=== PATIENT | male | born 1965 | race Caucasian/White ===

== ENCOUNTER 2019-01-18 10:26 | Outpatient (CLI) | payer BC ==
[~2019-01-18 10:26] MED LIST: Iopamidol 370 76% 100 ML VIAL ONE
--- NOTE | 2019-01-18 11:37 | CT ---
Exam: Chest CT with contrast Abdomen CT with contrast Pelvic CT with contrast HISTORY: Colon cancer. Evaluate for staging. Correlation: None COMPARISON: None FINDINGS: Chest CT: Mediastinum: No mediastinal mass, lymphadenopathy or hematoma. Aorta: Normal caliber. No periaortic fat stranding. Heart: Normal heart size. No significant pericardial fluid. Trachea and central bronchi: Patent Pleural spaces: No free fluid Right lung: Linear opacity in the right lower lobe likely represent subsegmental atelectasis or scar. Consolidation in the right lower lobe and middle lobe likely represent multi lobar atelectasis. No suspicious masses in the right lung Left lung:Linear opacities in the lingula and left lower lobe likely due to scar or atelectasis. No s uspicious masses in the left lung. Pneumothorax: None Abdomen CT: Gallbladder: Contracted. Grossly unremarkable.Portal vein: Patent Liver: Diffuse heterogeneous enhancement throughout the hepatic parenchyma. The majority of the right hepatic lobe has heterogeneous enhancement suggesting extensive hepatic metastases. The overall degree of involvement suggests significant replacement of the [place] hepatic parenchyma. Spleen: Appropriate enhancement Pancreas: Appropriate enhancement Adrenal glands: Appropriate enhancement Lymphadenopathy: Gastrohepatic lymph node measuring 1.6 x 0.8 cm Kidneys: Symmetric enhancement. No obstructive uropathy. Exophytic hypodensity emanating from the low er pole of the left kidney measuring 1.8 x 1.7 cm compatible with a cyst. Mesentery: There is perihepatic and perisplenic free fluid. Fluid tracks along both paracolic gutters . There are scattered mildly enlarged mesenteric lymph nodes. No free air. Alimentary canal: Gastric mucosa, duodenum and multiple normal caliber small bowel loops are identifi ed. Ileocecal junction is normal. Limited evaluation the appendix. There is contrast and fecal material in a nondistended, nondilated colon. Hyperdensity involving the distal sigmoid colon and rec partha may represent a neoplastic process. Correlate with what is presumed to be a previous colonoscopy. Pelvis CT: There is free fluid in the pelvis. No pelvic mass, adenopathy, free air. Limited evaluation of the ur inary bladder. Osseous structures:Pseudoarthrosis of the left and right sacral ala with the sacrum. There are no ost eoblastic or osteolytic lesions. IMPRESSION: 1. Extensive hepatic metastases. 2. Abnormal mucosal appearance of the distal sigmoid colon and rectum. Correlate with what is presume d to be a recent colonoscopy. 3. Enlarged gastrohepatic and scattered mildly enlarged mesenteric lymph nodes. 4. Free fluid in the abdomen and pelvis.
== END 2019-01-18 10:27 | disposition home or self-care (01) ==
LOC: SCSCT 10:26
PROVIDERS: ATTEND Internal Medicine
DX: K62.89 Other specified diseases of anus and rectum (principal); C78.7 Secondary malignant neoplasm of liver and intrahepatic bile duct; R59.0 Localized enlarged lymph nodes; K76.89 Other specified diseases of liver
CPT/HCPCS: 71260; 74177; Q9967

== ENCOUNTER 2019-01-20 14:49 | Inpatient (IN) | payer BC ==
[2019-01-20 15:32] LABS: Bilirubin Large (Negative); Blood, Urine Negative (Negative); Glucose, Urine (Dipstick) Negative (Negative); Leukocyte Negative (Negative); Nitrite Negative (Negative); Protein, Urine (Dipstick) 30 mg/dL (Neg-Trace)
[2019-01-20 15:35] LABS: Clarity Hazy (Clear)
[2019-01-20 15:37] LABS: RBC/HPF None Seen HPF (0-3); Squamous Epithelial 0-3 HPF (0-3); WBC/HPF None Seen HPF (0-3)
[2019-01-20 15:38] LABS: Bacteria/HPF 1+ HPF (None Seen)
[2019-01-20 15:53] LABS: Hemoglobin 11.9 g/dL (14.0-18.0); Mean Corpuscular HGB CONC 33.9 g/dL (32.0-36.0); Mean Corpuscular Hemoglobin 30.3 pg (27.0-31.0); Mean Corpuscular Volume 89.4 fL (78.0-98.0); Mean Platelet Volume 13.5 fL (7.4-10.4); Platelet Count 216 thou/uL (130-400); RBC Distribution Width 14.1 % (11.5-14.5); Red Blood Cell (RBC) Count 3.91 mill/uL (4.70-6.10); White Blood Cell (WBC) Count 17.3 thou/uL (4.8-10.8)
[2019-01-20 16:04] LABS: #Basophils 0.1 thou/uL (0.0-0.2); #Eosinphils 0.1 thou/uL (0.0-0.7); #Lymphocytes 1.5 thou/uL (1.20-3.40); #Monocytes 1.2 thou/uL (0.11-0.59); #Neutrophils 14.4 thou/uL (1.40-6.50); %Basophils 0.7 % (0.0-1.0); %Eosinophils 0.6 % (0.0-10.0); %Lymphocytes 8.4 % (21.0-51.0); %Neutrophils 83.3 % (42.0-75.0); ALT (SGPT) 168 U/L (8-55); AST (SGOT) 341 U/L (5-34); Albumin 3.7 g/dL (3.5-5.0); Alkaline Phosphatase 531 U/L (40-150); Anion Gap 22 mmol/L (10-20); BUN (Urea Nitrogen) 38 mg/dL (8.4-25.7); Bilirubin, Total 10.8 mg/dL (0.2-1.2); Calc. Creatinine Clearance 0 mL/min (70-130); Calcium 8.7 mg/dL (7.8-10.44); Carbon Dioxide 19 mmol/L (22-29); Chloride 78 mmol/L (98-107); Estimated GFR-MDRD 21; Globulin 2.7 g/dL (2.4-3.5); Glucose 93 mg/dL (70-105); Hypochromia SLIGHT = 6-15 cells (100X) (0-5/hpf); Large Platelets SLIGHT; Lipase 45 U/L (8-78); MDiff Complete? YES; Ovalocytes SLIGHT = 2-5 cells (100X) (0-1/hpf); Platelet Morphology Comment Appears Adequate; Potassium 4.9 mmol/L (3.5-5.1); Protein, Total 6.4 g/dL (6.0-8.3); Stomatocytes SLIGHT = 2-5 cells (100X) (0-1/hpf)
[2019-01-20 16:08] LABS: Sodium 114 mmol/L (136-145)
[2019-01-20] MEDS ORDERED: Ondansetron PF 4 MG/2 ML Vial ONE (17:37)
[2019-01-20] MEDS: Sodium Chloride 0.9% 1,000 ML IV SCH (19:30)
[2019-01-20 19:43] VITALS: BMI 35.3
[2019-01-20] MEDS ORDERED: Ondansetron PF 4 MG/2 ML Vial IVP PRN (20:33)
[2019-01-20] MEDS ORDERED: Ondansetron ODT 4 MG TAB PO PRN (20:33)
[2019-01-20] MEDS: traZODone HCl 50 MG TAB PO SCH (21:00)
[2019-01-20 21:17] LABS: Anion Gap 20 mmol/L (10-20); BUN (Urea Nitrogen) 40 mg/dL (8.4-25.7); Calc. Creatinine Clearance 46 mL/min (70-130); Calcium 8.3 mg/dL (7.8-10.44); Carbon Dioxide 20 mmol/L (22-29); Chloride 75 mmol/L (98-107); Estimated GFR-MDRD 20; Glucose 95 mg/dL (70-105); Potassium 5.1 mmol/L (3.5-5.1)
[2019-01-20 21:20] LABS: Sodium 110 mmol/L (136-145)
--- NOTE | 2019-01-20 21:31 | PDOC.EVN ---
Event Note - Event Note Event Note: Sodium level followed, will give Nacl 3 % bolus, as discussed with Dr Funes, will monitor.
--- NOTE | 2019-01-20 21:52 | HP ---
PRIMARY CARE DOCTOR: Dr. Sanabria - oncologist; Dr. Schumacher - GI doctor. CODE STATUS: Full code. TIME OF EVALUATION: 8:30 HISTORY OF PRESENT ILLNESS: This is a 53-year-old male patient, recent diagnosis of stage IV colon cancer, recent colonoscopy. Went to see Dr. Sanabria today, had some labs done, and the patient was found to have severe hyponatremia at sodium of 114. The plan from Dr. Sanabria is to start the patient on home chemotherapy as soon as possible and to refer him to [facility] since this is a very atypical kind of cancer. From the medical standpoint, the patient has no significant symptoms. There is no nausea, no vomiting, no seizures. We will correct the sodium slowly with goal to correct from 6 to 9 mEq in the next 24 hours. The patient's symptoms are mild and he is stable. REVIEW OF SYSTEMS: All other systems were reviewed and negative except for the findings as mentioned above. PAST MEDICAL HISTORY: The patient has a history of hypertension and colon cancer. PAST SURGICAL HISTORY: No surgical history. PSYCH HISTORY: Denies. SOCIAL HISTORY: No drug use. No smoking history. FAMILY HISTORY: The mother had a history of lung cancer. ALLERGIES: NO KNOWN DRUG ALLERGIES. REPORTED MEDICATIONS: 1. Amlodipine. 2. Benazepril. 3. Tramadol. 4. Metoprolol. PHYSICAL EXAMINATION: VITAL SIGNS: On presentation, blood pressure 128/65 with heart rate 85, respiratory rate was 18, temperature 97.6, oxygen saturation 94% on room air. GENERAL APPEARANCE: The patient is obese. He is alert, oriented, not in acute distress. HEENT: Eyes, normal conjunctivae. Moist oral mucosa. Anicteric. No JVD. RESPIRATORY: Bilateral air entry. No rales. No wheezes. Symmetric expansion. CARDIOVASCULAR: Normal rate and regular rhythm. No murmurs. No edema. ABDOMEN: Soft. Normal bowel sounds. MUSCULOSKELETAL: Baseline range of motion and strength. SKIN: Warm and intact. No pallor. No rash. No redness. Capillary refill seems to intact. NEURO: No evidence of any new focal weakness. Cranial nerves seem to be intact. PSYCHIATRIC: The patient is in good mood. No anxiety. Optimal judgment. DIAGNOSTIC DATA: Abdomen and pelvis CT was done. The patient has extensive hepatic metastasis, abnormal mucosal appearance to the distal sigmoid colon and rectum, correlate with what recent colonoscopy, enlarged gastrohepatic and scattered mild large mesenteric lymph nodes, free fluid in the abdomen and pelvis. LABORATORY DATA: Reviewed. The patient has white count of 17.3, hemoglobin 11.9, MCV 89.4, platelet count 216, neutrophils 33.3. Chemistry; sodium 114, potassium 4.9, chloride 78, carbon dioxide 19, anion gap 22, BUN 38, creatinine 3.14, GFR 21, glucose 93, calcium 9.7, total bilirubin 10.8, AST 341, ALT 168, alkaline phosphatase 531. Serum total protein 6.4, albumin 3.7. Urine was done, the patient has large bilirubin. No white count in urine. ASSESSMENT AND PLAN: The patient will be placed in the hospital with following medical problems: 1. Severe hyponatremia with sodium 114. We will replace his sodium at a slow rate. The patient is asymptomatic, so this is chronic. We will aim for correction of 6 to 9 mEq in the first 24 hours. 2. Leukocytosis -The patient seems to be also third spacing. The patient has bilateral leg edema. No evidence of infection at this point. We will monitor. If any evidence of sepsis appears, we will treat accordingly. 3. Normocytic anemia, could be secondary to anemia of chronic disease or underlying chronic kidney disease. I do not have many labs to compare,kidney function if this acute or chronic. 4. Possible acute kidney injury with a creatinine of 3.14. We will monitor kidney function. We are going to consult Nephrology given severe hyponatremia and also acute kidney failure. We will avoid nephrotoxic medications. We will hydrate and monitor kidney function. 5. Metastatic liver disease due to colon cancer with elevated LFTs, being followed by Dr. Sanabria. Will need to follow with Hematology/Oncology. 6. Deep venous thrombosis prophylaxis. 7. Controlled hypertension. Reconcile home medications. Job ID: [id number] [facility]
[2019-01-20] MEDS ORDERED: Sodium Chloride 3% 100 ML IVPB SCH (22:00)
[2019-01-21 01:31] LABS: Anion Gap 16 mmol/L (10-20); BUN (Urea Nitrogen) 42 mg/dL (8.4-25.7); Calc. Creatinine Clearance 45 mL/min (70-130); Calcium 8.3 mg/dL (7.8-10.44); Carbon Dioxide 20 mmol/L (22-29); Chloride 79 mmol/L (98-107); Estimated GFR-MDRD 19; Glucose 89 mg/dL (70-105); Potassium 5.2 mmol/L (3.5-5.1)
[2019-01-21 01:34] LABS: Sodium 110 mmol/L (136-145)
[2019-01-21] MEDS: traMADol HCl 50 MG TAB PO PRN (03:39)
[2019-01-21] MEDS: Sodium Chloride 0.9% 1,000 ML IV SCH (03:41)
[2019-01-21 07:44] LABS: Anion Gap 22 mmol/L (10-20); BUN (Urea Nitrogen) 44 mg/dL (8.4-25.7); Calc. Creatinine Clearance 40 mL/min (70-130); Calcium 8.3 mg/dL (7.8-10.44); Carbon Dioxide 18 mmol/L (22-29); Chloride 76 mmol/L (98-107); Estimated GFR-MDRD 17; Glucose 83 mg/dL (70-105); Potassium 4.9 mmol/L (3.5-5.1)
[2019-01-21 07:46] LABS: Sodium 111 mmol/L (136-145)
[2019-01-21] MEDS ORDERED: Sodium Chloride 3% 200 ML IVPB SCH (08:00)
[2019-01-21] MEDS ORDERED: Albumin 25% 25 GM/100 ML BOT IVPB SCH (08:22)
[2019-01-21 08:57] LABS: #Eosinphils 0.3 thou/uL (0.0-0.7); #Lymphocytes 1.3 thou/uL (1.20-3.40); #Monocytes 1.1 thou/uL (0.11-0.59); #Neutrophils 12.1 thou/uL (1.40-6.50); %Basophils 0.2 % (0.0-1.0); %Monocytes 7.6 % (0.0-10.0); %Neutrophils 81.1 % (42.0-75.0); Hemoglobin 11.3 g/dL (14.0-18.0); Mean Corpuscular HGB CONC 32.5 g/dL (32.0-36.0); Mean Corpuscular Hemoglobin 29.2 pg (27.0-31.0); Mean Corpuscular Volume 89.8 fL (78.0-98.0); Mean Platelet Volume 11.3 fL (7.4-10.4); Platelet Count 209 thou/uL (130-400); RBC Distribution Width 14.5 % (11.5-14.5); Red Blood Cell (RBC) Count 3.88 mill/uL (4.70-6.10); White Blood Cell (WBC) Count 14.9 thou/uL (4.8-10.8)
[2019-01-21] MEDS ORDERED: Amlodipine 5 MG TAB PO SCH (09:00)
[2019-01-21] MEDS ORDERED: Non-Formulary Item 1 EACH (Amlodipine Besylate/Benazepril [Amlodipine Besylate/Benazepril PO SCH (09:00)
--- NOTE | 2019-01-21 09:04 | CON ---
DATE OF CONSULTATION: 01/21/2019 REASON FOR CONSULTATION: Severe hyponatremia and renal insufficiency. REQUESTING PHYSICIAN: Lalito Negron MD HISTORY OF PRESENT ILLNESS: A 53-year-old male patient recently diagnosed with metastatic colon cancer admitted for evaluation and treatment of hyponatremia noticed by the oncologist in the office. The patient reportedly had a blood draw yesterday morning and was called back later in the day to report to the ER for evaluation and treatment of low sodium levels. On presentation to the ER, the patient was found to have a sodium of 114, which was the same earlier on in the day. The patient also was found to have elevated creatinine, hence possible volume contraction was considered and he was started on normal saline. However, repeat BMP 5 hours after commencement of normal saline showed sodium of 110, hence Nephrology consult was requested. The patient reported poor oral intake for several days, but denied vomiting or diarrhea. He also denied NSAID use. The patient however had contrast study on January 18 for staging of cancer. He also recently had a colonoscopy on January 12. He has no prior history of kidney disease. The patient was treated with 100 mL of hypertonic saline last night, but repeat BMP this morning showed sodium of 111. He admitted to generalized weakness, but denied dysuria, hematuria, difficulty urinating, hematemesis, headache, or focal weakness. He however admitted to recent bilateral leg swelling as well as right-sided flank through back pain. The patient also takes benazepril for hypertension. There is no history of fever, shortness of breath, sputum production, palpitation, PND, or orthopnea. He, however, admitted to intermittent cough with minimal to no sputum production. The patient is a never smoker. PAST MEDICAL HISTORY: 1. Hypertension. 2. Recent diagnosis of colon cancer. PAST SURGICAL HISTORY: None. FAMILY HISTORY: Significant for kidney disease and lung cancer in mother. SOCIAL HISTORY: The patient lives with family. Denied smoking or drug use. The patient wants to be full code and spouse is the surrogate decision maker. ALLERGIES: NO KNOWN DRUG ALLERGIES REPORTED. HOME MEDICATIONS: 1. Amlodipine 5 mg p.o. daily. 2. Amlodipine/benazepril 5/40 mg 1 tablet daily. 3. Tramadol 50 mg q.6 p.r.n. for pain. 4. Metoprolol succinate 25 mg p.o. daily. REVIEW OF SYSTEMS: A 12-point review of system performed was negative other than pertinent positives and negatives included in the history of present illness. PHYSICAL EXAMINATION: VITAL SIGNS: Current vitals show temperature 97.6, pulse 78, respiratory rate 18, SpO2 91 on room air, blood pressure is 107/53. GENERAL: Healthy-looking, middle-aged male, in mild painful distress. Afebrile. Anicteric. Acyanotic. HEENT: Normocephalic, atraumatic. Pupils are reacting to light. Oral mucosa is moist. NECK: Supple and nontender with full range of motion. No obvious masses were appreciated. CARDIOVASCULAR: Regular rhythm and rate with normal heart sounds 1 and 2. RESPIRATORY: Fair air entry with some transmitted sounds and a few crackles on the right lung base. Work of breathing is not increased. No rhonchi were appreciated. GI: Full, soft, mild tenderness right upper quadrant. Bowel sound is normoactive. EXTREMITIES: Moderate bilateral leg edema noted. No erythema or cyanosis appreciated. ACQUISITIONS LOGISTICS ANALYST: Conscious, alert and oriented x3 with appropriate mental status. Cranial nerves 2 through 12 are grossly intact. The patient moves all extremities. DIAGNOSTIC DATA: On presentation, January 20, the patient had the following labs; CBC showed WBC count of 17.3, hemoglobin of 11.9, MCV of 89.4, and platelet count of 216. Initial BMP on January 20 showed sodium 114, potassium 5.0, chloride 76, CO2 21, BUN 36, creatinine 2.75, glucose 80, calcium 8.7, total bilirubin 11.1, direct 7.8, AST 310, ALT 153, alkaline phosphatase 560, total protein 5.9, albumin 3.8, globulin 2.1. Most current BMP at 7:01 a.m. on January 21 showed sodium 111, potassium 4.9, chloride 76, CO2 of 18, BUN 44, creatinine 3.78, glucose 83, calcium 8.3. Serum osmolarity on January 20 was 248. Uric acid on January 20 was 16.7 and phosphorus on 01/[address] scan of the chest, abdomen and pelvis performed on January 18 showed extensive hepatic metastasis as well as abnormal mucosal appearance of the distal sigmoid colon and rectum as well as enlarged gastrohepatic and scattered mildly enlarged mesenteric lymph nodes. Also noted were bilateral linear opacities in both lungs. ASSESSMENT: 1. Severe hyponatremia: This is felt to be due to syndrome of inappropriate antidiuretic hormone secretion related to neoplastic disease. 2. Renal insufficiency: Acuity is unclear at this time. But recent contrast study in a patient using benazepril is suggestive of contrast induced nephropathy. However, other etiologies like renal venothrombosis given bilateral leg edema and metastatic disease is considered. The patient also has elevated uric acid with cancer raising possibility of tumor lysis syndrome. 3. Metastatic colon cancer. 4. Metabolic acidosis: Due to chronic kidney disease. 5. Bilateral leg edema: Concerning for deep venous thrombosis. 6. 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 7. Abnormal liver enzymes. 8. Hyperbilirubinemia. PLAN: 1. We will give 200 mL of hypertonic saline and recheck BMP afterwards with a view to dosing further if needed to get serum sodium at least back to 114. We will commence fluid restriction to 800 mL/h. 2. We will get medical record from the PCP to know the patient's baseline creatinine. 3. We will also get renal ultrasound as well as bilateral lower extremity Dopplers to rule out DVT. 4. We will get urine osmolality as well as urine electrolytes to see if there is a possible contribution from prerenal etiology. 5. We will also get serum phosphorus, magnesium as well as repeat uric acid. 6. In the face of possible tumor lysis syndrome, management of this patient will be very, very challenging, especially with severe hyponatremia. Many thanks for involving us in the care of this patient. We will follow closely with you. Further recommendation to follow following review of other diagnostic tests and hospital course. Job ID: [id number]
--- NOTE | 2019-01-21 09:08 | ULT ---
ULTRASOUND WITH DOPPLER DUPLEX VENOUS LOWER EXTREMITY BILATERAL: CPT: 69829 ICD-10-PCS: B54D HISTORY: Lower extremity edema. TECHNIQUE: Color flow Doppler, spectral waveform analysis of pulsed Doppler, and cha-scale imaging with jordy belkys and augmentation, were used to evaluate the bilateral common femoral, femoral, popliteal, methods engineer ior tibial, and superficial femoral, veins; and the proximal portions of the profunda femoral and gre ater saphenous, veins. FINDINGS: There is appropriate compressibility and flow within the imaged deep vein system of each lower extrem ity. IMPRESSION: No deep vein thrombosis. POS: C
--- NOTE | 2019-01-21 09:18 | ULT ---
RENAL ULTRASOUND: CLINICAL HISTORY: Acute kidney insufficiency. FINDINGS: The demonstrates left renal length is 11.9 cm and right renal length is 12 cm. No overt hydronephros is. There is a focal hypoechoic, 2 cm circumscribed focus of the left kidney, inferiorly, consistent with a cyst. The imaged urinary bladder is grossly unremarkable. IMPRESSION: 1. Left renal cyst. 2. No overt hydronephrosis. POS: C
[2019-01-21] MEDS: Lidocaine 5% Patch TD SCH (09:19)
[2019-01-21 09:27] LABS: Magnesium 2.6 mg/dL (1.6-2.6); Uric Acid 19.3 mg/dL (3.5-7.2)
[2019-01-21 09:28] LABS: ALT (SGPT) 160 U/L (8-55); AST (SGOT) 344 U/L (5-34); Albumin 3.6 g/dL (3.5-5.0); Alkaline Phosphatase 489 U/L (40-150); Bilirubin, Direct 7.8 mg/dL (0.1-0.3); Bilirubin, Total 10.9 mg/dL (0.2-1.2); CK (CPK) 444 U/L (30-200); Protein, Total 5.9 g/dL (6.0-8.3)
[2019-01-21 09:36] LABS: Phosphorus 5.5 mg/dL (2.3-4.7)
[2019-01-21 10:37] LABS: Creatinine, Urine 220.63 mg/dL (63-166); Potassium, Urine 26.8 mmol/L; Sodium, Urine Less than 20 mmol/L (Not Available)
[2019-01-21] MEDS ORDERED: RASBURICASE FS SCH (12:30)
[2019-01-21] MEDS ORDERED: RASBURICASE 1.5 MG FS SCH ×2 (12:45)
[2019-01-21 12:59] LABS: Anion Gap 21 mmol/L (10-20); BUN (Urea Nitrogen) 45 mg/dL (8.4-25.7); Calc. Creatinine Clearance 35 mL/min (70-130); Calcium 8.5 mg/dL (7.8-10.44); Carbon Dioxide 20 mmol/L (22-29); Chloride 77 mmol/L (98-107); Estimated GFR-MDRD 15; Glucose 92 mg/dL (70-105); Potassium 5.4 mmol/L (3.5-5.1)
[2019-01-21 13:07] LABS: Sodium 113 mmol/L (136-145)
[2019-01-21] MEDS ORDERED: Sodium Chloride 3% 500 ML IVPB SCH (13:30)
[2019-01-21] MEDS ORDERED: Sodium Bicarbonate 75 MEQ in Sodium Chloride 0.45% 1,000 ML IV SCH ×2 (13:45→14:00)
--- NOTE | 2019-01-21 14:15 | PDOC.HOSPP ---
- Subjective Encounter Date: 01/21/19 Encounter Time: 14:13 Subjective: Patient seen and examined, no new issues or complaints. Daughter at bedside, all questions answered. - Objective Vital Signs & Weight: Vital Signs (12 hours) Temp Pulse Resp BP Pulse Ox 01/21/19 08:00 90 L 01/21/19 07:54 97.6 F 78 18 107/53 L 91 L 01/21/19 03:56 97.9 F 78 16 114/55 L 93 L Weight Weight 268 lb Result Diagrams: 01/21/19 08:29 01/21/19 12:18 ROS - Medication Medications: Active Medications Generic Name Dose Route Start Last Admin Trade Name Freq PRN Reason Stop Dose Admin Rasburicase 4.5 mg/ Sodium 50 mls @ 100 mls/hr 01/21/19 13:00 01/21/19 13:53 Chloride IVPB 01/21/19 17:00 50 mls ONE DAYLIN Administration Lidocaine 1 patch 01/21/19 09:00 01/21/19 09:19 Lidoderm 5% Patch TD 1 patch DAILY DAYLIN Administration Metoprolol Succinate 25 mg 01/21/19 09:00 01/21/19 09:18 Toprol Xl PO 25 mg DAILY DAYLIN Administration Sodium Chloride 10 ml 01/21/19 09:00 01/21/19 09:11 Flush - Normal Saline IVF 10 ml Q12HR DAYLIN Administration Sodium Chloride 10 ml 01/20/19 21:33 01/21/19 09:16 Flush - Normal Saline IVF 10 ml PRN PRN Administration Saline Flush Tramadol HCl 50 mg 01/20/19 20:36 01/21/19 03:39 Ultram PO 50 mg Q6HR PRN Administration Pain Trazodone HCl 50 mg 01/20/19 21:00 01/20/19 21:00 Desyrel PO 50 mg HS DAYLIN Administration - Exam NAD, awake alert Eye: PERRL, anicteric sclera ENT: normocephalic atraumatic, no oropharyngeal lesions Neck: supple Heart: RRR, no murmur, no gallops Respiratory: CTAB, no wheezes, no rales Gastrointestinal: soft, non-tender, non-distended Hosp A/P (1) Colon cancer Code(s): C18.9 - MALIGNANT NEOPLASM OF COLON, UNSPECIFIED Status: Acute (2) Hyponatremia Code(s): E87.1 - HYPO-OSMOLALITY AND HYPONATREMIA Status: Acute (3) Obesity Code(s): E66.9 - OBESITY, UNSPECIFIED Status: Acute (4) Leukocytosis Code(s): D72.829 - ELEVATED WHITE BLOOD CELL COUNT, UNSPECIFIED Status: Acute - Plan - cont with current medical management - Na levels rising slowly - given the fact that pt was at 110 with no symptoms this is something that chronically happened - will target a rise of 6-8 meq/24hrs for now - renal also following, appreciate help - patient stable currently - serial BMPs - case and plan d/w patient at [facility], family at bedside, all questions answered.
--- NOTE | 2019-01-21 15:26 | CON ---
DATE OF CONSULTATION: REASON FOR CONSULTATION: Small cell carcinoma of the rectum. 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 The patient initially presented to [facility] ER on December 31 for abdominal pain and CT showed multiple liver lesions. He was discharged with outpatient followup, but a few days later, went to the [facility] ER for the same issue. He eventually saw Dr. 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 CT chest, abdomen, and pelvis on January 18 showed extensive hepatic metastases, extrahepatic and mesenteric lymphadenopathy and a normal mucosal appearance of distal sigmoid colon and rectum. The patient was feeling normal until beginning of December when the pain abruptly started. He also has shortness of breath and constipation beginning around the same time along with fatigue. He is noticed to be jaundiced in clinic yesterday. However, he had not noticed this before. He also noted leg edema, but this is more chronic and denied any other symptoms. The patient left the clinic and his labs came back showing a sodium of 114, creatinine 2.75, uric acid 16.7, total bilirubin 11.1, and LDH of 619. I called the patient and advised him to go to the hospital for evaluation due to metabolic disturbances. On arrival to the hospital, his sodium dropped to 110 and his creatinine has trended up to 3.78. REVIEW OF SYSTEMS: Ten-point review of systems negative except as per HPI. PAST MEDICAL HISTORY: Hypertension, rectal cancer. PAST SURGICAL HISTORY: None. SOCIAL HISTORY: No smoking or drug use. 1 to 2 beers daily. FAMILY HISTORY: Lung cancer in his mother. ALLERGIES: NO KNOWN DRUG ALLERGIES. CURRENT MEDICATIONS: Reviewed. PHYSICAL EXAMINATION: VITAL SIGNS: Temperature 97.6, pulse 78, respirations 18, saturating 91% on room air, blood pressure 107/53. GENERAL APPEARANCE: The patient is lying or sitting up in bed, in no acute distress. HEENT: Normocephalic and atraumatic. Scleral icterus is noted. NECK: Supple. LUNGS: Clear to auscultation bilaterally. CARDIOVASCULAR: S1, S2. Regular rhythm and rate. ABDOMEN: Obese with mild right upper quadrant tenderness. EXTREMITIES: 1 to 2+ edema bilaterally. SKIN: Jaundiced. LYMPHATICS: No palpable lymphadenopathy. NEUROLOGIC: Cranial nerves 2 through 12 are grossly intact and otherwise nonfocal. PSYCHIATRIC: Awake, alert, and oriented x3. LABORATORY DATA: Sodium 111, potassium 4.9, chloride 76, bicarb 18, BUN 44, creatinine 3.78. Serum osmolality 248, total bilirubin 10.8, AST 341, ALT 168, alkaline phosphatase 531, uric acid 16.7, CEA 0.97, LDH 619. 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 Dr. Funes has been consulted for his metabolic disturbances and has given him a dose of hypertonic saline which he will repeat today. Trying to hydrate and hold off on any ADH inhibitors at this time while we treat his tumor lysis syndrome. Repeating uric acid level now and if still elevated, we will give him a dose of rasburicase. The patient's bilirubin is extremely elevated, most likely just due to tumor burden as there is no ductal dilatation seen on the CT. However, Dr. Santiago will see the patient today to see if stenting would have any benefit. The patient has a very aggressive tumor and needs to be started on chemotherapy quickly and Dr. Pena has been consulted for inpatient MediPort placement, and I will plan to start him on carboplatin plus PEG DRIVER-16 tomorrow. The patient will need an MRI brain within the next few days to evaluate for metastatic disease; however, this is not urgent at this time. Job ID: [id number]
--- NOTE | 2019-01-21 16:08 | ULT ---
RIGHT UPPER QUADRANT ULTRASOUND: 01/21/19 INDICATION: Biliary dilatation. FINDINGS: There is diffuse heterogeneity of the liver with multiple hypoechoic lesions indicative of metastases . There is a moderately distended echogenic gallbladder indicative of gravel-like cholelithiasis/gal lbladder sludge. The gallbladder wall is thickened. Imaged common duct is normal in caliber measuring 2 to 3 mm. IMPRESSION: 1. Diffuse hepatic metastatic disease. 2. Abnormal sonographic appearance of the gallbladder, as discussed above. 3. No abnormal dilatation of the common duct is demonstrated. POS: [facility]
[2019-01-21 17:13] LABS: Anion Gap 22 mmol/L (10-20); BUN (Urea Nitrogen) 48 mg/dL (8.4-25.7); Calc. Creatinine Clearance 34 mL/min (70-130); Calcium 8.2 mg/dL (7.8-10.44); Carbon Dioxide 18 mmol/L (22-29); Chloride 77 mmol/L (98-107); Estimated GFR-MDRD 14; Glucose 82 mg/dL (70-105); Potassium 5.1 mmol/L (3.5-5.1)
[2019-01-21 17:21] LABS: Sodium 112 mmol/L (136-145)
[2019-01-21] MEDS: Sodium Bicarbonate 75 MEQ in Sodium Chloride 0.45% 1,000 ML IV SCH (20:21)
[2019-01-21] MEDS: traZODone HCl 50 MG TAB PO SCH (20:22)
[2019-01-21] MEDS: Sodium Chloride 3% 500 ML IVPB SCH (20:22)
[2019-01-21] MEDS: Lidocaine Patch Removal 1 EACH TOP SCH (20:24)
[2019-01-21 21:17] LABS: Anion Gap 22 mmol/L (10-20); BUN (Urea Nitrogen) 49 mg/dL (8.4-25.7); Calc. Creatinine Clearance 33 mL/min (70-130); Calcium 8.3 mg/dL (7.8-10.44); Carbon Dioxide 19 mmol/L (22-29); Chloride 77 mmol/L (98-107); Estimated GFR-MDRD 14; Glucose 80 mg/dL (70-105); Potassium 4.8 mmol/L (3.5-5.1)
[2019-01-21 21:23] LABS: Sodium 113 mmol/L (136-145)
[2019-01-22 01:11] LABS: Anion Gap 22 mmol/L (10-20); BUN (Urea Nitrogen) 52 mg/dL (8.4-25.7); Calc. Creatinine Clearance 33 mL/min (70-130); Carbon Dioxide 18 mmol/L (22-29); Chloride 80 mmol/L (98-107); Estimated GFR-MDRD 13; Glucose 79 mg/dL (70-105); Potassium 4.9 mmol/L (3.5-5.1)
[2019-01-22 01:13] LABS: Sodium 115 mmol/L (136-145)
[2019-01-22] MEDS: Sodium Bicarbonate 75 MEQ in Sodium Chloride 0.45% 1,000 ML IV SCH ×5 (01:55→20:03)
[2019-01-22 05:07] LABS: #Basophils 0.1 thou/uL (0.0-0.2); #Eosinphils 0.2 thou/uL (0.0-0.7); #Lymphocytes 1.3 thou/uL (1.20-3.40); #Neutrophils 10.5 thou/uL (1.40-6.50); %Basophils 0.5 % (0.0-1.0); %Eosinophils 1.7 % (0.0-10.0); %Lymphocytes 9.9 % (21.0-51.0); %Monocytes 7.6 % (0.0-10.0); %Neutrophils 80.4 % (42.0-75.0); Hemoglobin 10.5 g/dL (14.0-18.0); Mean Corpuscular HGB CONC 33.4 g/dL (32.0-36.0); Mean Corpuscular Hemoglobin 30.6 pg (27.0-31.0); Mean Corpuscular Volume 91.6 fL (78.0-98.0); Mean Platelet Volume 11.1 fL (7.4-10.4); Platelet Count 194 thou/uL (130-400); RBC Distribution Width 14.5 % (11.5-14.5); Red Blood Cell (RBC) Count 3.42 mill/uL (4.70-6.10); White Blood Cell (WBC) Count 13.1 thou/uL (4.8-10.8)
[2019-01-22 05:28] LABS: Phosphorus 5.9 mg/dL (2.3-4.7)
[2019-01-22 05:31] LABS: ALT (SGPT) 154 U/L (8-55); AST (SGOT) 355 U/L (5-34); Albumin 3.5 g/dL (3.5-5.0); Alkaline Phosphatase 443 U/L (40-150); Anion Gap 22 mmol/L (10-20); BUN (Urea Nitrogen) 53 mg/dL (8.4-25.7); Bilirubin, Total 10.4 mg/dL (0.2-1.2); Calc. Creatinine Clearance 29 mL/min (70-130); Calcium 7.9 mg/dL (7.8-10.44); Carbon Dioxide 19 mmol/L (22-29); Chloride 79 mmol/L (98-107); Estimated GFR-MDRD 12; Globulin 2.1 g/dL (2.4-3.5); Glucose 77 mg/dL (70-105); Potassium 4.9 mmol/L (3.5-5.1); Protein, Total 5.6 g/dL (6.0-8.3); Uric Acid 15.2 mg/dL (3.5-7.2)
[2019-01-22 05:38] LABS: Sodium 115 mmol/L (136-145)
[2019-01-22] MEDS: Sodium Chloride 3% 500 ML IVPB SCH ×5 (06:44→23:36)
--- NOTE | 2019-01-22 08:16 | PRG ---
DATE OF SERVICE: 01/22/2019 SERVICE: Nephrology. SUBJECTIVE: A 53-year-old with recent diagnosis of colon cancer with metastasis. The patient was also found to have acute renal failure necessitating Nephrology consult. Was found to have hyponatremia as well as features of tumor lysis syndrome. Reports feeling a little better. Appetite has improved. Denied nausea, vomiting, chest pain, or shortness of breath. OBJECTIVE: VITAL SIGNS: Temperature 97.8, pulse 80, respiratory rate 16, SpO2 of 90 on room air, and blood pressure 121/83. GENERAL: Middle-aged male, in no obvious distress. Afebrile, acyanotic. HEENT: Normocephalic, atraumatic. Oral mucosa is moist. CARDIOVASCULAR: Regular rhythm and rate with normal heart sounds 1 and 2. RESPIRATORY: Fair air entry bilateral with few bibasilar crackles. No use of accessory muscles appreciated. GI: Full, soft, nontender, nondistended with normal bowel sounds. EXTREMITIES: [id number] bilateral leg edema. No erythema appreciated. 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 Cranial nerves 2 through 12 are grossly intact. DIAGNOSTIC DATA: CBC showed WBC count of 13.1, hemoglobin of 10.5, MCV of 91.6, platelet of 194. CMP this morning showed sodium 115, potassium 4.9, chloride 79, CO2 of 19, anion gap 22, BUN 53, creatinine 5.13, glucose 77, calcium 7.9, total bilirubin 10.4, AST 355, ALT 154, alkaline phosphatase 443, total protein 5.6, albumin 3.5, globulin 2.1. Phosphorus is 5.9, uric acid is 15.2. Urine electrolytes showed urine osmolality 275. Urine creatinine 220.63. Urine sodium less than 20. ASSESSMENT: 1. Acute renal failure: Due to tumor lysis syndrome with possible contribution from contrast-induced nephropathy. Acute tubular necrosis from volume depletion may also be contributory given that the patient has poor oral intake with markedly low fractional excretion of sodium. 2. Tumor lysis syndrome. This is spontaneous as the patient is yet to start chemotherapy. 3. Possible contrast-induced nephropathy. 4. Hyperphosphatemia. 5. Hyperuricemia. 6. Hyponatremia: This is multifactorial from syndrome of inappropriate antidiuretic hormone secretion related to cancer as well as appropriate antidiuretic hormone secretion due to volume contraction. Urine sodium is less than 20, but urine osmolality is elevated in the face of severe hyponatremia. 7. Hypertension, controlled. 8. Bilateral leg edema: Deep vein thrombosis ruled out. Most likely related to venous insufficiency, which most likely is due to abdominal lymphadenopathy. 9. Metabolic acidosis: Due to acute renal failure. 10. Metastatic colon cancer. 11. Abnormal liver function tests: Due to liver metastasis. PLAN: 1. We will continue sodium bicarb containing infusion at 200 mL/hour. 2. We will increase hypertonic saline to 75 mL/hour. 3. We will continue to monitor BMP every 4 hours and adjust fluid rate as needed. 4. We will also start the patient on Lasix due to leg swelling and to increase urine flow. 5. We will change diet to renal diet given increase in phosphorus. 6. The patient received rasburicase yesterday. We will continue to monitor uric acid with a view to re-dosing if needed. 7. Record from GI's office showed that the patient had creatinine of 1.1 and sodium of 135 on December 31, 2018. I have discussed care plan with the nursing staff as well as the patient and spouse at the bedside. We will continue to follow along with you. Job ID: [id number] MTDD
[2019-01-22] MEDS: Furosemide 20 MG/2 ML VIAL SLOW IVP SCH ×2 (08:39→19:10)
[2019-01-22] MEDS: Lidocaine 5% Patch TD SCH (08:43)
[2019-01-22] MEDS ORDERED: Dexamethasone 10 MG/ML VIAL SLOW IVP SCH (09:30)
[2019-01-22] MEDS ORDERED: PALONOSETRON HCL 0.05 MG/ML 5 ML VIAL IVP SCH (09:30)
--- NOTE | 2019-01-22 09:30 | PDOC.MOPN ---
Interval History: Pt feeling well today other than fatigue. He is eating ok, no complaints. - Vital Signs Vital Signs: Vital Signs (12 hours) Temp Pulse Resp BP Pulse Ox 01/22/19 07:20 97.3 F L 82 16 104/58 L 94 L Weight Weight 287 lb - Physical Exam General: Alert, Oriented x3, Cooperative, No acute distress HEENT: Other (scleral icterus) Lungs: Normal air movement Cardiovascular: Regular rate Abdomen: Soft Skin: No significant lesion (jaundice) Neurological: Cranial nerves 3-12 NL Psych/Mental Status: Mental status NL, Mood NL - Labs Result Diagrams: 01/22/19 04:57 01/22/19 04:57 Lab results: Laboratory Results - last 24 hr 01/22/19 04:57: WBC 13.1 H, RBC 3.42 L, Hgb 10.5 L, Hct 31.4 L, MCV 91.6, MCH 30.6, MCHC 33.4, RDW 14.5, Plt Count 194, MPV 11.1 H, Neutrophils % 80.4 H, Lymphocytes % 9.9 L, Monocytes % 7.6, Eosinophils % 1.7, Basophils % 0.5, Neutrophils # 10.5 H, Lymphocytes # 1.3, Monocytes # 1.0 H, Eosinophils # 0.2, Basophils # 0.1 01/22/19 04:57: Phosphorus 5.9 H 01/22/19 04:57: Sodium 115 L*, Potassium 4.9, Chloride 79 L, Carbon Dioxide 19 L , Anion Gap 22 H, BUN 53 H, Creatinine 5.13 H, Estimated GFR (MDRD) 12, Glucose 77, Uric Acid 15.2 H, Calcium 7.9, Total Bilirubin 10.4 H, AST 355 H, ALT 154 H , Alkaline Phosphatase 443 H, Serum Total Protein 5.6 L, Albumin 3.5, Globulin 2.1 L, Albumin/Globulin Ratio 1.7 01/22/19 00:45: Sodium 115 L*, Potassium 4.9, Chloride 80 L, Carbon Dioxide 18 L , Anion Gap 22 H, BUN 52 H, Creatinine 4.62 H, Estimated GFR (MDRD) 13, Glucose 79, Calcium 8.0 01/21/19 20:45: Sodium 113 L*, Potassium 4.8, Chloride 77 L, Carbon Dioxide 19 L , Anion Gap 22 H, BUN 49 H, Creatinine 4.58 H, Estimated GFR (MDRD) 14, Glucose 80, Calcium 8.3 01/21/19 16:46: Sodium 112 L*, Potassium 5.1, Chloride 77 L, Carbon Dioxide 18 L , Anion Gap 22 H, BUN 48 H, Creatinine 4.38 H, Estimated GFR (MDRD) 14, Glucose 82, Calcium 8.2 01/21/19 12:18: Sodium 113 L*, Potassium 5.4 H, Chloride 77 L, Carbon Dioxide 20 L, Anion Gap 21 H, BUN 45 H, Creatinine 4.30 H, Estimated GFR (MDRD) 15, Glucose 92, Calcium 8.5 01/21/19 08:30: Phosphorus 5.5 H 01/21/19 08:29: Total Bilirubin 10.9 H, Direct Bilirubin 7.8 H, AST 344 H, ALT 160 H, Alkaline Phosphatase 489 H, Creatine Kinase 444 H, Serum Total Protein 5.9 L, Albumin 3.6 01/21/19 08:29: Serum Osmolality 254 L 01/21/19 08:20: Urine Osmolality 275 L 01/21/19 08:20: Urine Creatinine 220.63 H, Urine Sodium Less than 20, Urine Potassium 26.8 A/P - Problem (1) Small cell carcinoma Current Visit: Yes Code(s): C80.1 - MALIGNANT (PRIMARY) NEOPLASM, UNSPECIFIED Status: Acute (2) Tumor lysis syndrome Current Visit: Yes Code(s): E88.3 - TUMOR LYSIS SYNDROME Status: Acute (3) Acute kidney failure Current Visit: Yes Status: Acute (4) Hyperuricemia Current Visit: Yes Code(s): E79.0 - HYPERURICEMIA W/O SIGNS OF INFLAM ARTHRIT AND TOPHACEOUS DIS Status: Acute (5) Hyponatremia Current Visit: Yes Code(s): E87.1 - HYPO-OSMOLALITY AND HYPONATREMIA Status : Acute - Plan Plan: 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
[2019-01-22] MEDS ORDERED: CARBOPLATIN IVPB SCH (09:45)
[2019-01-22] MEDS ORDERED: Pegfilgrastim Onpro 6 MG/0.6 ML SQ SCH (09:45)
[2019-01-22] MEDS ORDERED: ETOPOSIDE IVPB SCH (09:45)
[2019-01-22] MEDS ORDERED: SODIUM CHLORIDE 0.9% IVPB SCH ×2 (09:45)
[2019-01-22] MEDS: Allopurinol 100 MG TAB PO SCH (11:40)
[2019-01-22 12:40] LABS: Anion Gap 22 mmol/L (10-20); BUN (Urea Nitrogen) 56 mg/dL (8.4-25.7); Calc. Creatinine Clearance 30 mL/min (70-130); Calcium 7.6 mg/dL (7.8-10.44); Carbon Dioxide 20 mmol/L (22-29); Chloride 82 mmol/L (98-107); Estimated GFR-MDRD 11; Glucose 105 mg/dL (70-105); Potassium 4.6 mmol/L (3.5-5.1)
[2019-01-22 12:51] LABS: Sodium 119 mmol/L (136-145)
[2019-01-22] MEDS ORDERED: Furosemide 40 MG/4 ML VIAL SLOW IVP SCH (13:30)
--- NOTE | 2019-01-22 14:28 | PDOC.HOSPP ---
- Subjective Encounter Date: 01/22/19 Encounter Time: 14:26 Subjective: Patient seen and examined, no new issues or complaints. - Objective Vital Signs & Weight: Vital Signs (12 hours) Temp Pulse Resp BP Pulse Ox 01/22/19 12:40 97.5 F L 84 18 124/61 94 L 01/22/19 07:20 97.3 F L 82 16 104/58 L 94 L Weight Weight 287 lb I&O: 01/21/19 01/22/19 01/23/19 06:59 06:59 06:59 Intake Total 3030 Output Total 100 Balance 2930 Result Diagrams: 01/22/19 04:57 01/22/19 12:27 ROS - Medication Medications: Active Medications Generic Name Dose Route Start Last Admin Trade Name Giovanniq PRN Reason Stop Dose Admin Allopurinol 200 mg 01/22/19 09:00 01/22/19 11:40 Zyloprim PO 200 mg DAILY DAYLIN Administration Dexamethasone 10 mg 01/22/19 09:30 01/22/19 12:42 Decadron SLOW IVP 01/22/19 21:00 10 mg ONE DAYLIN Administration Furosemide 20 mg 01/22/19 08:00 01/22/19 08:39 Lasix SLOW IVP 20 mg 0800,1600 DAYLIN Administration Furosemide 40 mg 01/22/19 13:30 01/22/19 13:47 Lasix SLOW IVP 01/22/19 15:00 40 mg NOW DAYLIN Administration Sodium Bicarbonate 75 meq/ 1,075 mls @ 200 mls/hr 01/21/19 20:00 01/22/19 08: 38 Sodium Chloride IV 1,075 mls .Q5H23M DAYLIN Administration Carboplatin 281.8 mg/ Sodium 278.18 mls @ 370.907 mls/hr 01/22/19 09:45 01/22 13:29 Chloride IVPB 01/22/19 21:00 278.18 mls ONE DAYLIN Administration Rasburicase 4.5 mg/ Sodium 50 mls @ 100 mls/hr 01/22/19 09:45 01/22/19 11:41 Chloride IVPB 01/22/19 21:00 50 mls ONE DAYLIN Administration Sodium Chloride 500 mls @ 60 mls/hr 01/22/19 13:30 01/22/19 13:47 Sodium Chloride 3% IVPB 500 mls .Q8H20M DAYLIN Administration Lidocaine 1 patch 01/21/19 09:00 01/22/19 08:43 Lidoderm 5% Patch TD 1 patch DAILY DAYLIN Administration Metoprolol Succinate 25 mg 01/21/19 09:00 01/22/19 08:42 Toprol Xl PO 25 mg DAILY DAYLIN Administration Miscellaneous Medication 1 each 01/21/19 21:00 01/21/19 20:24 Lidocaine Patch Removal TOP 1 each 2100 DAYLIN Administration Palonosetron 0.25 mg 01/22/19 09:30 01/22/19 12:42 Aloxi IVP 01/22/19 21:00 0.25 mg ONE DAYLIN Administration Sodium Chloride 10 ml 01/21/19 09:00 01/22/19 13:49 Flush - Normal Saline IVF 10 ml Q12HR DAYLIN Administration Sodium Chloride 10 ml 01/20/19 21:33 01/21/19 09:16 Flush - Normal Saline IVF 10 ml PRN PRN Administration Saline Flush Tramadol HCl 50 mg 01/20/19 20:36 01/21/19 03:39 Ultram PO 50 mg Q6HR PRN Administration Pain Trazodone HCl 50 mg 01/20/19 21:00 01/21/19 20:22 Desyrel PO 50 mg HS DAYLIN Administration - Exam NAD, awake alert Eye: PERRL, anicteric sclera ENT: normocephalic atraumatic, no oropharyngeal lesions Neck: supple, symmetric, no JVD Heart: RRR, no murmur, no gallops, no rubs Respiratory: CTAB, no wheezes, no rales, no ronchi Gastrointestinal: soft, non-tender, non-distended, normal bowel sounds Hosp A/P (1) Colon cancer Code(s): C18.9 - MALIGNANT NEOPLASM OF COLON, UNSPECIFIED Status: Acute (2) Hyponatremia Code(s): E87.1 - HYPO-OSMOLALITY AND HYPONATREMIA Status: Acute (3) Obesity Code(s): E66.9 - OBESITY, UNSPECIFIED Status: Acute (4) Leukocytosis Code(s): D72.829 - ELEVATED WHITE BLOOD CELL COUNT, UNSPECIFIED Status: Acute - Plan - cont with current medical management - Na levels rising nicely - renal following - serial labs - case and plan d/w patient at length, he understood and agreed with this plan.
[2019-01-22] MEDS ORDERED: Furosemide 20 MG/2 ML VIAL SLOW IVP SCH (16:30)
[2019-01-22] MEDS ORDERED: Furosemide 100 MG/10 ML VIAL SLOW IVP SCH (16:30)
[2019-01-22 16:46] LABS: Anion Gap 24 mmol/L (10-20); BUN (Urea Nitrogen) 54 mg/dL (8.4-25.7); Calc. Creatinine Clearance 32 mL/min (70-130); Calcium 7.5 mg/dL (7.8-10.44); Carbon Dioxide 18 mmol/L (22-29); Chloride 84 mmol/L (98-107); Estimated GFR-MDRD 12; Glucose 100 mg/dL (70-105); Potassium 4.6 mmol/L (3.5-5.1); Sodium 121 mmol/L (136-145)
[2019-01-22] MEDS: traZODone HCl 50 MG TAB PO SCH (20:03)
[2019-01-22] MEDS: Lidocaine Patch Removal 1 EACH TOP SCH (20:04)
[2019-01-22 20:46] LABS: Anion Gap 20 mmol/L (10-20); BUN (Urea Nitrogen) 55 mg/dL (8.4-25.7); Calc. Creatinine Clearance 34 mL/min (70-130); Calcium 7.5 mg/dL (7.8-10.44); Carbon Dioxide 20 mmol/L (22-29); Chloride 85 mmol/L (98-107); Estimated GFR-MDRD 13; Glucose 119 mg/dL (70-105); Potassium 4.9 mmol/L (3.5-5.1); Sodium 120 mmol/L (136-145)
[2019-01-23 01:03] LABS: Anion Gap 20 mmol/L (10-20); BUN (Urea Nitrogen) 57 mg/dL (8.4-25.7); Calc. Creatinine Clearance 36 mL/min (70-130); Calcium 7.4 mg/dL (7.8-10.44); Carbon Dioxide 19 mmol/L (22-29); Chloride 89 mmol/L (98-107); Estimated GFR-MDRD 14; Glucose 121 mg/dL (70-105); Potassium 5.2 mmol/L (3.5-5.1); Sodium 123 mmol/L (136-145)
[2019-01-23] MEDS: Sodium Bicarbonate 75 MEQ in Sodium Chloride 0.45% 1,000 ML IV SCH ×3 (01:31→19:30)
[2019-01-23 04:44] LABS: #Eosinphils 0.1 thou/uL (0.0-0.7); #Monocytes 0.9 thou/uL (0.11-0.59); #Neutrophils 14.9 thou/uL (1.40-6.50); %Basophils 0.1 % (0.0-1.0); %Eosinophils 0.3 % (0.0-10.0); %Lymphocytes 5.7 % (21.0-51.0); %Monocytes 5.1 % (0.0-10.0); %Neutrophils 88.8 % (42.0-75.0); Hemoglobin 10.2 g/dL (14.0-18.0); Mean Corpuscular HGB CONC 32.6 g/dL (32.0-36.0); Mean Corpuscular Hemoglobin 30.1 pg (27.0-31.0); Mean Corpuscular Volume 92.5 fL (78.0-98.0); Mean Platelet Volume 10.9 fL (7.4-10.4); Platelet Count 216 thou/uL (130-400); White Blood Cell (WBC) Count 16.7 thou/uL (4.8-10.8)
[2019-01-23 05:09] LABS: ALT (SGPT) 155 U/L (8-55); AST (SGOT) 361 U/L (5-34); Albumin 3.4 g/dL (3.5-5.0); Alkaline Phosphatase 440 U/L (40-150); Anion Gap 23 mmol/L (10-20); BUN (Urea Nitrogen) 59 mg/dL (8.4-25.7); Bilirubin, Total 11.1 mg/dL (0.2-1.2); Calc. Creatinine Clearance 36 mL/min (70-130); Calcium 7.5 mg/dL (7.8-10.44); Carbon Dioxide 19 mmol/L (22-29); Chloride 88 mmol/L (98-107); Estimated GFR-MDRD 14; Glucose 118 mg/dL (70-105); Potassium 4.9 mmol/L (3.5-5.1); Protein, Total 5.4 g/dL (6.0-8.3); Sodium 125 mmol/L (136-145); Uric Acid 8.6 mg/dL (3.5-7.2)
[2019-01-23] MEDS: Lidocaine 5% Patch TD SCH (08:00)
[2019-01-23] MEDS: Allopurinol 100 MG TAB PO SCH (08:00)
[2019-01-23] MEDS ORDERED: Furosemide 20 MG/2 ML VIAL SLOW IVP SCH (08:00)
[2019-01-23] MEDS ORDERED: Furosemide 40 MG/4 ML VIAL SLOW IVP SCH (08:30)
[2019-01-23 08:39] LABS: Anion Gap 21 mmol/L (10-20); BUN (Urea Nitrogen) 60 mg/dL (8.4-25.7); Calc. Creatinine Clearance 36 mL/min (70-130); Calcium 7.4 mg/dL (7.8-10.44); Carbon Dioxide 20 mmol/L (22-29); Chloride 88 mmol/L (98-107); Estimated GFR-MDRD 14; Glucose 108 mg/dL (70-105); Potassium 4.9 mmol/L (3.5-5.1); Sodium 124 mmol/L (136-145)
--- NOTE | 2019-01-23 09:29 | PRG ---
DATE OF SERVICE: 01/23/2019 SERVICE: Nephrology. SUBJECTIVE: The patient with recently diagnosed metastatic colon cancer admitted for treatment and is being followed up for acute kidney injury and hyponatremia. The patient also was found to have spontaneous tumor lysis syndrome. Status post chemotherapy yesterday. Reports feeling better. Denied nausea, vomiting, abdominal pain, shortness of breath. Leg swelling persists. OBJECTIVE: VITAL SIGNS: Temperature 98.2, pulse 99, respiratory rate 20, SpO2 90 on room air, blood pressure is 129/69. GENERAL: Obese male, in no obvious distress. Afebrile. Anicteric. Acyanotic. HEENT: Normocephalic, atraumatic. Pupils are reacting to light. CARDIOVASCULAR: Regular rhythm and rate with normal heart sounds 1 and 2. RESPIRATORY: Fair air entry bilaterally with few transmitted sounds. Air entry is mildly decreased at both bases. GI: Obese, soft, nontender, nondistended with normal bowel sounds. EXTREMITIES: Mzavrdwb-mo-[id number] bilateral leg edema noted. No erythema appreciated. 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 The patient is ambulant. Cranial nerves 2 through 12 are grossly intact. DIAGNOSTIC DATA: CMP this morning showed sodium 125, potassium 4.9, chloride 88, CO2 of 19, anion gap 23, BUN 59, creatinine 4.51, glucose 118, calcium 7.5, total bilirubin 11, AST 361, ALT 155, alkaline phosphatase 440, total protein 5.4, albumin 3.4, globulin 2.0. Phosphorus is 7.0, and uric acid is 8.6. CBC today showed WBC count of 16.7, hemoglobin of 10.2, MCV of 92.5, and platelet count of 216. ASSESSMENT: 1. Acute renal failure: Multifactorial in etiology with tumor lysis syndrome, volume depletion and possible contrast induced nephropathy . Acute tubular necrosis can also not be ruled out. Creatinine is marginally better with fluid hydration from 5.3 to 4.5. 2. Tumor lysis syndrome. This was spontaneous even before commencement of chemotherapy yesterday. 3. Possible contrast-induced nephropathy. 4. Hyperphosphatemia. 5. Hyperuricemia: Uric acid level is down following rasburicase treatment. 6. Hyponatremia: Levels are up to 125 this morning with treatment with hypertonic solution. 7. Bilateral leg edema: Multifactorial, most likely from venous insufficiency as well as lymphatic drainage limitation given abdominal lymphadenopathy. Deep venous thrombosis has been ruled out. 8. Metabolic acidosis. 9. Abnormal liver function tests. 10. Multiple liver metastasis. 11. Metastatic colon cancer. 12. Hypocalcemia. PLAN: 1. We will continue sodium bicarb in half-normal saline at 100 mL/hour. 2. We will hold hypertonic solution at this time. 3. We will continue to monitor BMP every 4 hours and adjust fluid treatment as needed. 4. We will start phosphate binders. 5. We will also change diet to renal diet. 6. We will get ionized calcium. 7. Other treatment as per primary attending and Oncology. Job ID: [id number]
[2019-01-23] MEDS ORDERED: SODIUM CHLORIDE 0.9% IVPB SCH (10:00)
[2019-01-23] MEDS ORDERED: ETOPOSIDE IVPB SCH (10:00)
[2019-01-23 11:17] LABS: Actual Bicarbonate (HCO3v) 21 mEq/L (22-28); Analyzer IN Cardio OR; Base Excess -4.4 mEq/L (-2.0 to +3.0); Hemoglobin (Hb) 10.5 g/dL (13.1-17.2); Sodium 123.4 mmol/L (133-146); pH (venous) 7.35 (7.32-7.43)
[2019-01-23 11:18] LABS: Calcium, Ionized 0.95 mmol/L (1.16-1.32); Chloride (ABG LAB) 89 mmol/L (98-106)
--- NOTE | 2019-01-23 11:27 | PDOC.MOPN ---
Interval History: Pt feeling better today. He thinks his leg swelling may have improved. - Vital Signs Vital Signs: Vital Signs (12 hours) Temp Pulse Resp BP Pulse Ox 01/23/19 08:25 97.4 F L 86 16 112/69 93 L Weight Weight 287 lb - Physical Exam General: Alert, Oriented x3, Cooperative, No acute distress HEENT: Other (sceral icterus) Lungs: Normal air movement Cardiovascular: Regular rate Abdomen: Soft Extremities: Other (3+ edema in B/L LE) Skin: No breakdown (+jaundice) Neurological: Cranial nerves 3-12 NL Psych/Mental Status: Mental status NL, Mood NL - Labs Result Diagrams: 01/23/19 04:30 01/23/19 08:10 Lab results: Laboratory Results - last 24 hr 01/23/19 11:10: VBG pH 7.35, VBG pCO2 38.3 L, VBG pO2 37.1, VBG HCO3 21 L, VBG O2 Sat ([place]) 63.8, VBG O2 Content 35.8 H, VBG Base Excess -4.4 L, VBG Hematocrit 31.0 L*, VBG Hemoglobin 10.5 L, VBG Carboxyhemoglobin 0.8, VBG Methemoglobin 0.3, Whole Bld Sodium 123.4 L, Whole Bld Potassium 4.70, Whole Bld Chloride 89 L, Whole Bld Ioniz Calcium 0.95 L 01/23/19 08:10: Sodium 124 L, Potassium 4.9, Chloride 88 L, Carbon Dioxide 20 L , Anion Gap 21 H, BUN 60 H, Creatinine 4.42 H, Estimated GFR (MDRD) 14, Glucose 108 H, Calcium 7.4 L 01/23/19 04:30: WBC 16.7 H, RBC 3.40 L, Hgb 10.2 L, Hct 31.4 L, MCV 92.5, MCH 30.1, MCHC 32.6, RDW 15.0 H, Plt Count 216, MPV 10.9 H, Neutrophils % 88.8 H, Lymphocytes % 5.7 L, Monocytes % 5.1, Eosinophils % 0.3, Basophils % 0.1, Neutrophils # 14.9 H, Lymphocytes # 1.0 L, Monocytes # 0.9 H, Eosinophils # 0.1 , Basophils # 0.0 01/23/19 04:30: Phosphorus 7.0 H 01/23/19 04:30: Sodium 125 L, Potassium 4.9, Chloride 88 L, Carbon Dioxide 19 L , Anion Gap 23 H, BUN 59 H, Creatinine 4.51 H, Estimated GFR (MDRD) 14, Glucose 118 H, Uric Acid 8.6 H, Calcium 7.5 L, Total Bilirubin 11.1 H, AST 361 H, ALT 155 H, Alkaline Phosphatase 440 H, Serum Total Protein 5.4 L, Albumin 3.4 L, Globulin 2.0 L, Albumin/Globulin Ratio 1.7 01/23/19 00:39: Sodium 123 L, Potassium 5.2 H, Chloride 89 L, Carbon Dioxide 19 L, Anion Gap 20, BUN 57 H, Creatinine 4.51 H, Estimated GFR (MDRD) 14, Glucose 121 H, Calcium 7.4 L 01/22/19 20:12: Sodium 120 L, Potassium 4.9, Chloride 85 L, Carbon Dioxide 20 L , Anion Gap 20, BUN 55 H, Creatinine 4.78 H, Estimated GFR (MDRD) 13, Glucose 119 H, Calcium 7.5 L 01/22/19 16:15: Sodium 121 L, Potassium 4.6, Chloride 84 L, Carbon Dioxide 18 L , Anion Gap 24 H, BUN 54 H, Creatinine 4.97 H, Estimated GFR (MDRD) 12, Glucose 100, Calcium 7.5 L 01/22/19 12:27: Sodium 119 L*, Potassium 4.6, Chloride 82 L, Carbon Dioxide 20 L , Anion Gap 22 H, BUN 56 H, Creatinine 5.39 H, Estimated GFR (MDRD) 11, Glucose 105, Calcium 7.6 L 01/21/19 08:20: Ur Random Chloride Less than 60 A/P - Problem (1) Small cell carcinoma Current Visit: Yes Code(s): C80.1 - MALIGNANT (PRIMARY) NEOPLASM, UNSPECIFIED Status: Acute (2) Tumor lysis syndrome Current Visit: Yes Code(s): E88.3 - TUMOR LYSIS SYNDROME Status: Acute (3) Acute kidney failure Current Visit: Yes Status: Acute (4) Hyperuricemia Current Visit: Yes Code(s): E79.0 - HYPERURICEMIA W/O SIGNS OF INFLAM ARTHRIT AND TOPHACEOUS DIS Status: Acute (5) Hyponatremia Current Visit: Yes Code(s): E87.1 - HYPO-OSMOLALITY AND HYPONATREMIA Status : Acute - Plan Plan: 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
--- NOTE | 2019-01-23 12:03 | PDOC.HOSPP ---
- Subjective Encounter Date: 01/23/19 Encounter Time: 12:02 Subjective: Patient seen and examined, no new issues or complaints. Doing well and walking around. - Objective Vital Signs & Weight: Vital Signs (12 hours) Temp Pulse Resp BP Pulse Ox 01/23/19 08:25 97.4 F L 86 16 112/69 93 L 01/23/19 08:00 93 L Weight Weight 287 lb I&O: 01/22/19 01/23/19 01/24/19 06:59 06:59 06:59 Intake Total 3030 500 Output Total 100 1100 Balance 2930 -600 Result Diagrams: 01/23/19 04:30 01/23/19 08:10 ROS - Medication Medications: Active Medications Generic Name Dose Route Start Last Admin Trade Name Freq PRN Reason Stop Dose Admin Allopurinol 200 mg 01/22/19 09:00 01/23/19 08:00 Zyloprim PO 200 mg DAILY DAYLIN Administration Sodium Bicarbonate 75 meq/ 1,075 mls @ 200 mls/hr 01/21/19 20:00 01/23/19 01: 31 Sodium Chloride IV 1,075 mls .Q5H23M DAYLIN Administration Lidocaine 1 patch 01/21/19 09:00 01/23/19 08:00 Lidoderm 5% Patch TD 1 patch DAILY DAYLIN Administration Metoprolol Succinate 25 mg 01/21/19 09:00 01/23/19 08:00 Toprol Xl PO 25 mg DAILY DAYLIN Administration Miscellaneous Medication 1 each 01/21/19 21:00 01/22/19 20:04 Lidocaine Patch Removal TOP 1 each 2100 DAYLIN Administration Sodium Chloride 10 ml 01/21/19 09:00 01/23/19 08:01 Flush - Normal Saline IVF 10 ml Q12HR DAYLIN Administration Sodium Chloride 10 ml 01/20/19 21:33 01/22/19 16:58 Flush - Normal Saline IVF 10 ml PRN PRN Administration Saline Flush Tramadol HCl 50 mg 01/20/19 20:36 01/21/19 03:39 Ultram PO 50 mg Q6HR PRN Administration Pain Trazodone HCl 50 mg 01/20/19 21:00 01/22/19 20:03 Desyrel PO 50 mg HS DAYLIN Administration - Exam NAD, awake alert Eye: PERRL, anicteric sclera ENT: normocephalic atraumatic, no oropharyngeal lesions Neck: supple, symmetric, no JVD, no thyromegaly Heart: RRR, no murmur, no gallops, no rubs Respiratory: CTAB, no wheezes, no rales, no ronchi Gastrointestinal: soft, non-tender, non-distended, normal bowel sounds Extremities: no cyanosis, no clubbing, no edema Hosp A/P (1) Colon cancer Code(s): C18.9 - MALIGNANT NEOPLASM OF COLON, UNSPECIFIED Status: Acute (2) Hyponatremia Code(s): E87.1 - HYPO-OSMOLALITY AND HYPONATREMIA Status: Acute (3) Obesity Code(s): E66.9 - OBESITY, UNSPECIFIED Status: Acute (4) Leukocytosis Code(s): D72.829 - ELEVATED WHITE BLOOD CELL COUNT, UNSPECIFIED Status: Acute - Plan - cont with current medical management - Na levels rising nicely - renal following - serial labs - case and plan d/w patient at length, he understood and agreed with this plan.
[2019-01-23 12:10] LABS: Anion Gap 22 mmol/L (10-20); BUN (Urea Nitrogen) 63 mg/dL (8.4-25.7); Calc. Creatinine Clearance 37 mL/min (70-130); Calcium 7.5 mg/dL (7.8-10.44); Carbon Dioxide 19 mmol/L (22-29); Chloride 91 mmol/L (98-107); Estimated GFR-MDRD 14; Glucose 111 mg/dL (70-105); Sodium 127 mmol/L (136-145)
[2019-01-23] MEDS: Furosemide 100 MG/10 ML VIAL SLOW IVP SCH (14:28)
[2019-01-23 16:43] LABS: Anion Gap 21 mmol/L (10-20); BUN (Urea Nitrogen) 65 mg/dL (8.4-25.7); Calc. Creatinine Clearance 39 mL/min (70-130); Calcium 7.5 mg/dL (7.8-10.44); Carbon Dioxide 20 mmol/L (22-29); Chloride 91 mmol/L (98-107); Estimated GFR-MDRD 15; Glucose 108 mg/dL (70-105); Potassium 4.4 mmol/L (3.5-5.1); Sodium 128 mmol/L (136-145)
[2019-01-23 20:45] LABS: Anion Gap 23 mmol/L (10-20); BUN (Urea Nitrogen) 67 mg/dL (8.4-25.7); Calc. Creatinine Clearance 40 mL/min (70-130); Calcium 7.4 mg/dL (7.8-10.44); Carbon Dioxide 20 mmol/L (22-29); Chloride 89 mmol/L (98-107); Estimated GFR-MDRD 16; Glucose 107 mg/dL (70-105); Potassium 4.5 mmol/L (3.5-5.1); Sodium 127 mmol/L (136-145)
[2019-01-23] MEDS: traZODone HCl 50 MG TAB PO SCH (21:12)
[2019-01-23] MEDS: Lidocaine Patch Removal 1 EACH TOP SCH (21:13)
[2019-01-23] MEDS: Polyethylene Glycol 3350 17 GM Packet PO PRN (21:15)
[2019-01-23] MEDS: traMADol HCl 50 MG TAB PO PRN (23:01)
[2019-01-24 00:31] LABS: Anion Gap 23 mmol/L (10-20); BUN (Urea Nitrogen) 68 mg/dL (8.4-25.7); Calc. Creatinine Clearance 40 mL/min (70-130); Calcium 7.1 mg/dL (7.8-10.44); Carbon Dioxide 19 mmol/L (22-29); Chloride 89 mmol/L (98-107); Estimated GFR-MDRD 16; Glucose 97 mg/dL (70-105); Potassium 4.5 mmol/L (3.5-5.1); Sodium 126 mmol/L (136-145)
[2019-01-24] MEDS: Sodium Bicarbonate 75 MEQ in Sodium Chloride 0.45% 1,000 ML IV SCH (00:34)
[2019-01-24] MEDS ORDERED: Furosemide 100 MG/10 ML VIAL SLOW IVP SCH (01:00)
[2019-01-24 04:22] LABS: #Eosinphils 0.1 thou/uL (0.0-0.7); #Lymphocytes 0.8 thou/uL (1.20-3.40); #Monocytes 0.3 thou/uL (0.11-0.59); #Neutrophils 9.5 thou/uL (1.40-6.50); %Basophils 0.2 % (0.0-1.0); %Lymphocytes 7.4 % (21.0-51.0); %Neutrophils 88.5 % (42.0-75.0); Hemoglobin 9.7 g/dL (14.0-18.0); Mean Corpuscular HGB CONC 33.8 g/dL (32.0-36.0); Mean Corpuscular Hemoglobin 31.2 pg (27.0-31.0); Mean Corpuscular Volume 92.3 fL (78.0-98.0); Mean Platelet Volume 10.5 fL (7.4-10.4); Platelet Count 187 thou/uL (130-400); Red Blood Cell (RBC) Count 3.11 mill/uL (4.70-6.10); White Blood Cell (WBC) Count 10.7 thou/uL (4.8-10.8)
[2019-01-24 04:41] LABS: Phosphorus 7.2 mg/dL (2.3-4.7)
[2019-01-24 04:44] LABS: ALT (SGPT) 130 U/L (8-55); AST (SGOT) 275 U/L (5-34); Alkaline Phosphatase 403 U/L (40-150); Anion Gap 23 mmol/L (10-20); BUN (Urea Nitrogen) 69 mg/dL (8.4-25.7); Bilirubin, Total 9.7 mg/dL (0.2-1.2); Calc. Creatinine Clearance 40 mL/min (70-130); Calcium 7.2 mg/dL (7.8-10.44); Carbon Dioxide 19 mmol/L (22-29); Chloride 89 mmol/L (98-107); Estimated GFR-MDRD 16; Globulin 1.9 g/dL (2.4-3.5); Glucose 94 mg/dL (70-105); Potassium 4.5 mmol/L (3.5-5.1); Protein, Total 4.9 g/dL (6.0-8.3); Sodium 126 mmol/L (136-145); Uric Acid 7.3 mg/dL (3.5-7.2)
[2019-01-24] MEDS: Furosemide 100 MG/10 ML VIAL SLOW IVP SCH ×3 (06:32→21:16)
--- NOTE | 2019-01-24 07:24 | PRG ---
DATE OF SERVICE: 01/24/2019 SERVICE: Nephrology. SUBJECTIVE: A 53-year-old male being followed up for acute kidney injury, severe hyponatremia, and spontaneous tumor lysis syndrome due to metastatic colon cancer. The patient developed shortness of breath last night, necessitating increase in diuretics. Still have leg swelling and had developed scrotal swelling as well. Denied fever, nausea, vomiting, or chest pain. OBJECTIVE: VITAL SIGNS: Temperature 97.5, pulse 87, respiratory rate 16, SpO2 of 90 on 3 L nasal cannula, and blood pressure is 106/57. GENERAL: Obese male, in mild respiratory distress. Afebrile. Acyanotic. HEENT: Normocephalic, atraumatic. Oral mucosa is moist. CARDIOVASCULAR: Regular rhythm and rate with normal heart sounds 1 and 2. RESPIRATORY: Fair air entry bilaterally with few bibasilar crackles posteriorly. Work of breathing is not increased. GASTROINTESTINAL: Obese, soft, nontender, and nondistended with normal bowel sounds. EXTREMITIES: Pvldeywb-[id number]-aaztgy edema of both lower extremities. Trace edema of the hands noted. No cyanosis appreciated. UROGENITAL: Mild scrotal edema noted. NEUROLOGIC: Conscious and alert and oriented x3 with appropriate mental status. DIAGNOSTIC DATA: CMP this morning showed sodium 126, potassium 4.5, chloride 89, CO2 of 19, BUN 69, creatinine 3.98, glucose 94, uric acid 7.3, calcium 7.2, total bilirubin 9.7, AST 275, ALT 130, alkaline phosphatase 403, total protein 4.9, albumin 3.0, and globulin 1.9. Phosphorus is 7.2. Whole blood ionized calcium obtained on January 23 is 0.97 with total protein of 7.5. Vitamin D is 8.8. CBC obtained today showed WBC count of 10.7, hemoglobin of 9.7, and platelets of 187. ASSESSMENT: 1. Acute renal failure. 2. Spontaneous tumor lysis syndrome. 3. Severe hyponatremia: Levels are up from 110 to 126 in 2 to 3 days. 4. Hypocalcemia. 5. Hypoalbuminemia. 6. Acute respiratory failure with hypoxia due to pulmonary congestion related to fluid overload. 7. Fluid overload, stroke, generalized edema: Due to hypoalbuminemia and fluid therapy. 8. Hyperuricemia. 9. Hyperphosphatemia. 10. Metabolic acidosis. 11. Abnormal liver function tests. 12. Multiple liver metastases. 13. Metastatic colon cancer. PLAN: 1. We will discontinue IV fluids. 2. We will increase Lasix to q.8 hours to improve urinary output due to shortness of breath. 3. We will start vitamin D supplementation given severe vitamin D deficiency. 4. We will start oral supplement, Nepro. 5. We will continue to monitor electrolytes and renal function every 6 hours. 6. Fluid restriction will be changed to 1200 between 5 hours. 7. Further recommendation to follow depending on review of labs and hospital course. Job ID: [id number]
[2019-01-24] MEDS: Polyethylene Glycol 3350 17 GM Packet PO PRN (08:17)
[2019-01-24] MEDS: Lidocaine 5% Patch TD SCH (08:17)
[2019-01-24] MEDS: Allopurinol 100 MG TAB PO SCH (08:17)
[2019-01-24] MEDS: Sevelamer Carbonate 800 MG TAB PO SCH ×3 (08:18→17:54)
[2019-01-24] MEDS: traMADol HCl 50 MG TAB PO PRN (08:45)
--- NOTE | 2019-01-24 08:48 | PDOC.MOPN ---
Interval History: Pt did not sleep well last night, has been started on Lasix for SOB overnight and worsening edema including scrotal edema. - Vital Signs Vital Signs: Vital Signs (12 hours) Temp Pulse Resp BP Pulse Ox 01/24/19 07:57 97.3 F L 88 16 115/58 L 93 L 01/24/19 03:58 97.5 F L 87 16 106/57 L 90 L 01/24/19 00:06 97.6 F 86 16 100/50 L 90 L Weight Weight 287 lb - Physical Exam General: Alert, Oriented x3, Cooperative, No acute distress HEENT: Other (scleral icterus) Lungs: Normal air movement Cardiovascular: Regular rate Abdomen: Soft Extremities: Other (3+ edema in B/L LE) Skin: No breakdown (+jaundice) Neurological: Cranial nerves 3-12 NL Psych/Mental Status: Mental status NL, Mood NL - Labs Result Diagrams: 01/24/19 04:00 01/24/19 03:30 Lab results: Laboratory Results - last 24 hr 01/24/19 04:00: WBC 10.7, RBC 3.11 L, Hgb 9.7 L, Hct 28.7 L, MCV 92.3, MCH 31.2 H, MCHC 33.8, RDW 15.0 H, Plt Count 187, MPV 10.5 H, Neutrophils % 88.5 H, Lymphocytes % 7.4 L, Monocytes % 3.0, Eosinophils % 1.0, Basophils % 0.2, Neutrophils # 9.5 H, Lymphocytes # 0.8 L, Monocytes # 0.3, Eosinophils # 0.1, Basophils # 0.0 01/24/19 04:00: Phosphorus 7.2 H 01/24/19 03:30: Sodium 126 L, Potassium 4.5, Chloride 89 L, Carbon Dioxide 19 L , Anion Gap 23 H, BUN 69 H, Creatinine 3.98 H, Estimated GFR (MDRD) 16, Glucose 94, Uric Acid 7.3 H, Calcium 7.2 L, Total Bilirubin 9.7 H, AST 275 H, ALT 130 H , Alkaline Phosphatase 403 H, Serum Total Protein 4.9 L, Albumin 3.0 L, Globulin 1.9 L, Albumin/Globulin Ratio 1.6 01/24/19 00:00: Sodium 126 L, Potassium 4.5, Chloride 89 L, Carbon Dioxide 19 L , Anion Gap 23 H, BUN 68 H, Creatinine 3.99 H, Estimated GFR (MDRD) 16, Glucose 97, Calcium 7.1 L 01/23/19 20:00: Sodium 127 L, Potassium 4.5, Chloride 89 L, Carbon Dioxide 20 L , Anion Gap 23 H, BUN 67 H, Creatinine 4.04 H, Estimated GFR (MDRD) 16, Glucose 107 H, Calcium 7.4 L 01/23/19 16:00: Sodium 128 L, Potassium 4.4, Chloride 91 L, Carbon Dioxide 20 L , Anion Gap 21 H, BUN 65 H, Creatinine 4.16 H, Estimated GFR (MDRD) 15, Glucose 108 H, Calcium 7.5 L 01/23/19 11:10: VBG pH 7.35, VBG pCO2 38.3 L, VBG pO2 37.1, VBG HCO3 21 L, VBG O2 Sat ([place]) 63.8, VBG O2 Content 35.8 H, VBG Base Excess -4.4 L, VBG Hematocrit 31.0 L*, VBG Hemoglobin 10.5 L, VBG Carboxyhemoglobin 0.8, VBG Methemoglobin 0.3, Whole Bld Sodium 123.4 L, Whole Bld Potassium 4.70, Whole Bld Chloride 89 L, Whole Bld Ioniz Calcium 0.95 L 01/23/19 11:05: 25-OH Vitamin D Total 8.8 L 01/23/19 11:05: Sodium 127 L, Potassium 5.0, Chloride 91 L, Carbon Dioxide 19 L , Anion Gap 22 H, BUN 63 H, Creatinine 4.34 H, Estimated GFR (MDRD) 14, Glucose 111 H, Calcium 7.5 L A/P - Problem (1) Small cell carcinoma Current Visit: Yes Code(s): C80.1 - MALIGNANT (PRIMARY) NEOPLASM, UNSPECIFIED Status: Acute (2) Tumor lysis syndrome Current Visit: Yes Code(s): E88.3 - TUMOR LYSIS SYNDROME Status: Acute (3) Acute kidney failure Current Visit: Yes Status: Acute (4) Hyperuricemia Current Visit: Yes Code(s): E79.0 - HYPERURICEMIA W/O SIGNS OF INFLAM ARTHRIT AND TOPHACEOUS DIS Status: Acute (5) Hyponatremia Current Visit: Yes Code(s): E87.1 - HYPO-OSMOLALITY AND HYPONATREMIA Status : Acute - Plan Plan: 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
[2019-01-24] MEDS ORDERED: Ergocalciferol 1.25 MG(50,000 UNITS) CAP PO SCH (09:00)
[2019-01-24] MEDS ORDERED: ETOPOSIDE IVPB SCH (10:00)
[2019-01-24] MEDS ORDERED: SODIUM CHLORIDE 0.9% IVPB SCH (10:00)
[2019-01-24 12:51] LABS: Anion Gap 21 mmol/L (10-20); BUN (Urea Nitrogen) 73 mg/dL (8.4-25.7); Calc. Creatinine Clearance 41 mL/min (70-130); Calcium 7.1 mg/dL (7.8-10.44); Carbon Dioxide 20 mmol/L (22-29); Chloride 89 mmol/L (98-107); Estimated GFR-MDRD 16; Glucose 102 mg/dL (70-105); Potassium 4.6 mmol/L (3.5-5.1); Sodium 125 mmol/L (136-145)
[2019-01-24] MEDS ORDERED: PEGFILGRASTIM-JMDB 6 MG/0.6 ML SYRINGE SQ SCH (16:45)
[2019-01-24 19:11] LABS: Anion Gap 22 mmol/L (10-20); BUN (Urea Nitrogen) 78 mg/dL (8.4-25.7); Calc. Creatinine Clearance 40 mL/min (70-130); Calcium 7.4 mg/dL (7.8-10.44); Carbon Dioxide 21 mmol/L (22-29); Chloride 89 mmol/L (98-107); Estimated GFR-MDRD 16; Glucose 112 mg/dL (70-105); Sodium 127 mmol/L (136-145)
--- NOTE | 2019-01-24 19:55 | PDOC.HOSPP ---
- Subjective Encounter Date: 01/24/19 Encounter Time: 19:35 Subjective: f/u for SCC of the colon with LN/liver mets on Day #3 chemotx. Tumor lysis syndrome noted and - Objective Vital Signs & Weight: Vital Signs (12 hours) Temp Pulse Resp BP BP Pulse Ox 01/24/19 19:30 97.4 F L 93 18 110/55 L 92 L 01/24/19 16:00 97.4 F L 88 16 118/60 95 01/24/19 11:39 97.0 F L 83 16 107/53 L 90 L 01/24/19 08:00 93 L 01/24/19 07:57 97.3 F L 88 16 115/58 L 93 L Weight Weight 287 lb I&O: 01/23/19 01/24/19 01/25/19 06:59 06:59 06:59 Intake Total 1000 4590 800 Output Total 1100 1125 450 Balance -100 3465 350 Result Diagrams: 01/24/19 04:00 01/24/19 18:37 Additional Labs: Laboratory Tests 01/20/19 01/21/19 01/21/19 15:40 08:29 08:29 Sodium Creatinine Uric Acid 19.3 H AST 341 H 344 H ALT 168 H 160 H Alkaline Phosphatase 531 H 489 H 01/22/19 01/23/19 01/23/19 04:57 04:30 20:00 Sodium 127 L Creatinine 4.04 H Uric Acid 15.2 H 8.6 H AST 355 H 361 H ALT 154 H 155 H Alkaline Phosphatase 443 H 440 H 01/24/19 01/24/19 01/24/19 00:00 03:30 12:17 Sodium 126 L 126 L 125 L Creatinine 3.99 H 3.98 H 3.97 H Uric Acid 7.3 H AST 275 H ALT 130 H Alkaline Phosphatase 403 H Radiology Reviewed by me: Yes (LE doppler - no DVT) ROS - Medication Medications: Active Medications Generic Name Dose Route Start Last Admin Trade Name Freq PRN Reason Stop Dose Admin Allopurinol 200 mg 01/22/19 09:00 01/24/19 08:17 Zyloprim PO 200 mg DAILY DAYLIN Administration Ergocalciferol 1.25 mg 01/24/19 09:00 01/24/19 08:20 Drisdol PO 1.25 mg Q7DAYS DAYLIN Administration Furosemide 80 mg 01/24/19 14:00 01/24/19 14:19 Lasix SLOW IVP 80 mg Q8HR DAYLIN Administration Etoposide 253 mg/ Sodium 762.65 mls @ 762.65 mls/hr 01/24/19 10:00 01/24/19 14:27 Chloride IVPB 01/24/19 21:00 762.65 mls ONE DAYLIN Administration Lidocaine 1 patch 01/21/19 09:00 01/24/19 08:17 Lidoderm 5% Patch TD 1 patch DAILY DAYLIN Administration Metoprolol Succinate 25 mg 01/21/19 09:00 01/24/19 08:18 Toprol Xl PO 25 mg DAILY DAYLIN Administration Miscellaneous Medication 1 each 01/21/19 21:00 01/23/19 21:13 Lidocaine Patch Removal TOP 1 each 2100 DAYLIN Administration Polyethylene Glycol 17 gm 01/23/19 16:11 01/24/19 08:17 Miralax PO 17 gm DAILYPRN PRN Administration Constipation Sevelamer Carbonate 800 mg 01/24/19 08:00 01/24/19 17:54 Renvela PO 800 mg TID-WM DAYLIN Administration Sodium Chloride 10 ml 01/21/19 09:00 01/24/19 08:21 Flush - Normal Saline IVF 10 ml Q12HR DAYLIN Administration Sodium Chloride 10 ml 01/20/19 21:33 01/22/19 16:58 Flush - Normal Saline IVF 10 ml PRN PRN Administration Saline Flush Tramadol HCl 50 mg 01/20/19 20:36 01/24/19 08:45 Ultram PO 50 mg Q6HR PRN Administration Pain Trazodone HCl 50 mg 01/20/19 21:00 01/23/19 21:12 Desyrel PO 50 mg HS DAYLIN Administration - Exam NAD, awake alert Eye: PERRL, anicteric sclera ENT: normocephalic atraumatic, no oropharyngeal lesions Neck: supple, symmetric, no JVD, no thyromegaly, no lymphadenopathy Heart: RRR, no murmur, no gallops, no rubs, normal peripheral pulses Respiratory: no wheezes, normal chest expansion Respiratory - other findings: diminished in bases, occasional rhonchi Gastrointestinal: soft, normal bowel sounds, no rigidity Gastrointestinal - other findings: mild distention Extremities: no cyanosis, 2+ LE edema Skin: normal turgor, no lesions Neurological: CN's grossly intact, no focal deficits, no new deficit Musculoskeletal: normal tone, normal strength, no muscle wasting Psychiatric: normal affect, normal behavior, A&O x 3 Hosp A/P (1) Acute kidney failure Status: Acute Plan: ISRALE on CKD, avoid nephrotoxic meds and limit contrast exposure, serial creatinine, watch closely give Lasix dosing (2) Colon cancer Code(s): C18.9 - MALIGNANT NEOPLASM OF COLON, UNSPECIFIED Status: Acute Plan: SCC, continue chemotx per medical oncology (3) Hyperuricemia Code(s): E79.0 - HYPERURICEMIA W/O SIGNS OF INFLAM ARTHRIT AND TOPHACEOUS DIS Status: Acute Plan: Improved, continue Allopurinol (4) Hyponatremia Code(s): E87.1 - HYPO-OSMOLALITY AND HYPONATREMIA Status: Acute Plan: Improved with fluid restriction, serial Na+ monitoring (5) Tumor lysis syndrome Code(s): E88.3 - TUMOR LYSIS SYNDROME Status: Acute Plan: Continue to follow closely with transaminitis, hyperphosphatemia and edema - Plan plan discussed w/ family, 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
[2019-01-24] MEDS: traZODone HCl 50 MG TAB PO SCH (20:06)
[2019-01-24] MEDS: Lidocaine Patch Removal 1 EACH TOP SCH (20:15)
[2019-01-25 00:31] LABS: Anion Gap 21 mmol/L (10-20); BUN (Urea Nitrogen) 83 mg/dL (8.4-25.7); Calc. Creatinine Clearance 41 mL/min (70-130); Calcium 7.2 mg/dL (7.8-10.44); Carbon Dioxide 19 mmol/L (22-29); Chloride 91 mmol/L (98-107); Estimated GFR-MDRD 16; Glucose 109 mg/dL (70-105); Potassium 5.3 mmol/L (3.5-5.1); Sodium 126 mmol/L (136-145)
[2019-01-25] MEDS: Furosemide 100 MG/10 ML VIAL SLOW IVP SCH ×2 (06:13→15:39)
[2019-01-25 06:40] LABS: #Eosinphils 0.1 thou/uL (0.0-0.7); #Lymphocytes 0.7 thou/uL (1.20-3.40); #Monocytes 0.2 thou/uL (0.11-0.59); #Neutrophils 11.7 thou/uL (1.40-6.50); %Basophils 0.1 % (0.0-1.0); %Eosinophils 0.5 % (0.0-10.0); %Lymphocytes 5.5 % (21.0-51.0); %Monocytes 1.2 % (0.0-10.0); %Neutrophils 92.8 % (42.0-75.0); Hemoglobin 6.6 g/dL (14.0-18.0); INR-International Normal Ratio 1.4; Mean Corpuscular HGB CONC 33.3 g/dL (32.0-36.0); Mean Corpuscular Hemoglobin 30.8 pg (27.0-31.0); Mean Corpuscular Volume 92.8 fL (78.0-98.0); PTT 33.7 SEC (22.9-36.1); Platelet Count 210 thou/uL (130-400); Prothrombin Time 16.8 SEC (12.0-14.7); RBC Distribution Width 14.9 % (11.5-14.5); Red Blood Cell (RBC) Count 2.15 mill/uL (4.70-6.10); White Blood Cell (WBC) Count 12.6 thou/uL (4.8-10.8)
[2019-01-25 06:58] LABS: ALT (SGPT) 123 U/L (8-55); AST (SGOT) 229 U/L (5-34); Albumin 3.1 g/dL (3.5-5.0); Alkaline Phosphatase 374 U/L (40-150); Anion Gap 23 mmol/L (10-20); BUN (Urea Nitrogen) 90 mg/dL (8.4-25.7); Bilirubin, Total 10.5 mg/dL (0.2-1.2); Calc. Creatinine Clearance 40 mL/min (70-130); Calcium 7.4 mg/dL (7.8-10.44); Carbon Dioxide 18 mmol/L (22-29); Chloride 91 mmol/L (98-107); Estimated GFR-MDRD 16; Glucose 109 mg/dL (70-105); Potassium 5.4 mmol/L (3.5-5.1); Protein, Total 5.1 g/dL (6.0-8.3); Sodium 127 mmol/L (136-145); Uric Acid 7.9 mg/dL (3.5-7.2)
[2019-01-25 07:00] LABS: Phosphorus 9.4 mg/dL (2.3-4.7)
[2019-01-25] MEDS: Sevelamer Carbonate 800 MG TAB PO SCH ×3 (08:50→17:51)
[2019-01-25] MEDS: Allopurinol 100 MG TAB PO SCH (09:40)
[2019-01-25] MEDS: traMADol HCl 50 MG TAB PO PRN (09:40)
[2019-01-25] MEDS: Sodium Bicarbonate Tab 325 MG TAB PO SCH ×3 (09:40→20:15)
[2019-01-25] MEDS: Albumin 25% 25 GM/100 ML BOT IVPB SCH ×3 (09:43→20:17)
[2019-01-25] MEDS: Lidocaine 5% Patch TD SCH (09:43)
--- NOTE | 2019-01-25 10:59 | PRG ---
DATE OF SERVICE: 01/25/2019 SERVICE: Nephrology. SUBJECTIVE: A 53-year-old with recent diagnosis of colon cancer with metastasis, being followed up for acute kidney injury, tumor lysis syndrome, and volume overload. The patient reports feeling better and the leg swelling is also better. No nausea or vomiting. OBJECTIVE: VITAL SIGNS: Temperature 97.5, pulse 94, respiratory rate 18, SpO2 of 93% on 3 L, and blood pressure is 111/54. GENERAL: Obese male, in no distress. Afebrile. HEENT: Normocephalic and atraumatic. Oral mucosa is moist. CARDIOVASCULAR: Regular rhythm and rate. Normal heart sounds 1 and 2. RESPIRATORY: Fair air entry bilateral with few transmitted sounds. No rhonchi or crackle was appreciated. GI: Obese, soft, nontender, nondistended with normal bowel sounds. UROGENITAL: Mild scrotal edema noted. EXTREMITIES: Moderate bilateral leg edema noted. No erythema appreciated. REPORT CLERK: Conscious, alert, oriented x3 with appropriate mental status. Cranial nerves 2 through 12 are grossly intact. DIAGNOSTIC DATA: CBC today showed WBC count of 12.6, hemoglobin of 6.6, MCV of 92.8, platelet of 210. INR is 1.4, PT is 16.8. CMP showed sodium 127, potassium 5.4, chloride 91, CO2 of 18, BUN 90, creatinine 3.99, glucose 109, calcium 7.4, total bilirubin 10.5, AST 229, ALT 123, alkaline phosphatase 374, total protein 5.1, albumin 3.1, globulin 2.0. Phosphorus is 9.4. ASSESSMENT: 1. Acute kidney injury: From tumor lysis syndrome with possible contribution from volume depletion and contrast-induced nephropathy. 2. Hyperphosphatemia: Due to tumor lysis syndrome and chronic kidney disease. 3. Spontaneous tumor lysis syndrome. 4. Hyperuricemia. 5. Volume overload due to chronic kidney disease, hypoalbuminemia, and decreased venous return from liver metastasis as well as abdominal lymphadenopathy. 6. Anemia: Acute drop in hemoglobin from 9.7 to 6.6 cannot be explained. The patient is not bleeding. Lab error is a concern. 7. Pulmonary congestion with hypoxia and acute respiratory failure: Improving with diuretics. 8. Hyponatremia: Due to syndrome of inappropriate antidiuretic hormone secretion with possible contribution from poor solute intake. Improved with hypertonic solution. PLAN: 1. With increasing azotemia, which is most likely related to diuretics and with discontinuation of IV fluid due to worsening swelling, we will start the patient on albumin with a view to expanding the intravascular space without overtly increasing extravasation. 2. We will repeat CBC stat to confirm acute drop in hemoglobin. 3. We will increase Renvela to two tablets t.i.d. due to increase in phosphorus. 4. We will continue diuretics for now. 5. Wean off oxygen as tolerated. 6. Other treatment as per primary, attending, and Hematology/Oncology. Job ID: [id number]
[2019-01-25 11:37] LABS: Hemoglobin 8.7 g/dL (14.0-18.0); Mean Corpuscular HGB CONC 33.8 g/dL (32.0-36.0); Mean Corpuscular Hemoglobin 30.9 pg (27.0-31.0); Mean Corpuscular Volume 91.6 fL (78.0-98.0); Mean Platelet Volume 10.5 fL (7.4-10.4); Platelet Count 151 thou/uL (130-400); RBC Distribution Width 14.9 % (11.5-14.5); White Blood Cell (WBC) Count 9.4 thou/uL (4.8-10.8)
[2019-01-25 12:25] LABS: Anion Gap 22 mmol/L (10-20); BUN (Urea Nitrogen) 91 mg/dL (8.4-25.7); Calc. Creatinine Clearance 42 mL/min (70-130); Calcium 7.3 mg/dL (7.8-10.44); Carbon Dioxide 20 mmol/L (22-29); Chloride 90 mmol/L (98-107); Estimated GFR-MDRD 17; Glucose 105 mg/dL (70-105); Potassium 5.2 mmol/L (3.5-5.1); Sodium 127 mmol/L (136-145)
[2019-01-25 12:41] LABS: Band 6 % (5-11); Eosinophils 1 % (0-10); Lymphocytes 4 % (21-51); MDiff Complete? YES; Neutrophil 89 % (42-75); Polychromasia SLIGHT = 2-3 cells (100X) (0-2/hpf)
[2019-01-25] MEDS ORDERED: PEGFILGRASTIM-JMDB 6 MG/0.6 ML SYRINGE SQ SCH (16:00)
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
[2019-01-25 20:00] LABS: Anion Gap 23 mmol/L (10-20); BUN (Urea Nitrogen) 95 mg/dL (8.4-25.7); Calc. Creatinine Clearance 44 mL/min (70-130); Calcium 7.6 mg/dL (7.8-10.44); Carbon Dioxide 21 mmol/L (22-29); Chloride 89 mmol/L (98-107); Estimated GFR-MDRD 18; Glucose 111 mg/dL (70-105); Potassium 4.7 mmol/L (3.5-5.1); Sodium 128 mmol/L (136-145)
[2019-01-25] MEDS: traZODone HCl 50 MG TAB PO SCH (20:15)
[2019-01-25] MEDS: Lidocaine Patch Removal 1 EACH TOP SCH (20:16)
[2019-01-26 06:50] LABS: Hemoglobin 8.7 g/dL (14.0-18.0); Mean Corpuscular HGB CONC 33.4 g/dL (32.0-36.0); Mean Corpuscular Volume 92.8 fL (78.0-98.0); Mean Platelet Volume 10.2 fL (7.4-10.4); Platelet Count 163 thou/uL (130-400); RBC Distribution Width 14.7 % (11.5-14.5); Red Blood Cell (RBC) Count 2.82 mill/uL (4.70-6.10); White Blood Cell (WBC) Count 13.1 thou/uL (4.8-10.8)
[2019-01-26 07:00] LABS: Phosphorus 8.8 mg/dL (2.3-4.7)
[2019-01-26 07:03] LABS: ALT (SGPT) 103 U/L (8-55); AST (SGOT) 185 U/L (5-34); Albumin 3.6 g/dL (3.5-5.0); Alkaline Phosphatase 360 U/L (40-150); Anion Gap 22 mmol/L (10-20); BUN (Urea Nitrogen) 102 mg/dL (8.4-25.7); Bilirubin, Total 10.9 mg/dL (0.2-1.2); Calc. Creatinine Clearance 46 mL/min (70-130); Calcium 7.6 mg/dL (7.8-10.44); Carbon Dioxide 21 mmol/L (22-29); Chloride 91 mmol/L (98-107); Estimated GFR-MDRD 19; Globulin 1.9 g/dL (2.4-3.5); Glucose 106 mg/dL (70-105); Potassium 4.9 mmol/L (3.5-5.1); Protein, Total 5.5 g/dL (6.0-8.3); Sodium 129 mmol/L (136-145); Uric Acid 8.9 mg/dL (3.5-7.2)
[2019-01-26 07:41] LABS: Band 13 % (5-11); Eosinophils 1 % (0-10); Lymphocytes 5 % (21-51); MDiff Complete? YES; Neutrophil 81 % (42-75); Platelet Morphology Comment Appears Adequate; Polychromasia SLIGHT = 2-3 cells (100X) (0-2/hpf)
[2019-01-26] MEDS: Sevelamer Carbonate 800 MG TAB PO SCH ×3 (08:00→17:22)
[2019-01-26] MEDS: Allopurinol 100 MG TAB PO SCH (08:23)
[2019-01-26] MEDS: Sodium Bicarbonate Tab 325 MG TAB PO SCH ×2 (08:24→17:22)
[2019-01-26] MEDS: Lidocaine 5% Patch TD SCH (09:11)
[2019-01-26] MEDS ORDERED: Bupivacaine/Epinephrine 0.25% 30 ML VIAL ONE (09:48)
[2019-01-26] MEDS ORDERED: Lidocaine 2% PF 5 ML VIAL ONE (09:48)
[2019-01-26] MEDS ORDERED: Fentanyl 100 MCG/2 ML VIAL ONE (10:33)
[2019-01-26] MEDS ORDERED: PROPOFOL 40 ML ONE (10:33)
[2019-01-26] MEDS ORDERED: Meperidine HCl/PF 25 MG/ML VIAL SLOW IVP PRN (12:29)
[2019-01-26] MEDS ORDERED: Ondansetron HCl/PF 4 MG/2 ML Vial IVP PRN (12:29)
[2019-01-26] MEDS ORDERED: Promethazine HCl 25 MG/ML VIAL SLOW IVP PRN (12:29)
[2019-01-26] MEDS ORDERED: Promethazine HCl 25 MG/ML VIAL IM PRN (12:29)
[2019-01-26] MEDS ORDERED: HYDROmorphone 2 MG/ML VIAL SLOW IVP PRN (12:29)
--- NOTE | 2019-01-26 13:34 | PDOC.MOPN ---
Interval History: Pt feeling better today. Labs slowly improving. Planned for mediport today. - Vital Signs Vital Signs: Vital Signs (12 hours) Temp Pulse Resp BP Pulse Ox 01/26/19 10:00 97.5 F L 95 18 116/57 L 92 L 01/26/19 08:00 97 01/26/19 07:04 97.5 F L 95 18 109/52 L 97 01/26/19 05:20 97.7 F 96 18 114/57 L 94 L Weight Weight 287 lb - Physical Exam General: Alert, Oriented x3, Cooperative, No acute distress HEENT: Other (scleral icterus) Lungs: Clear to auscultation Cardiovascular: Regular rate, Normal S1 Abdomen: Soft Extremities: Other (3+ LE Edema) Skin: No significant lesion (Jaundice) Neurological: Cranial nerves 3-12 NL Psych/Mental Status: Mental status NL, Mood NL - Labs Result Diagrams: 01/26/19 06:37 01/26/19 06:37 Lab results: Laboratory Results - last 24 hr 01/26/19 06:37: WBC 13.1 H, RBC 2.82 L, Hgb 8.7 L, Hct 26.2 L, MCV 92.8, MCH 31.0, MCHC 33.4, RDW 14.7 H, Plt Count 163, MPV 10.2, Neutrophils % (Manual) 81 H, Band Neuts % (Manual) 13 H, Lymphocytes % (Manual) 5 L, Eosinophils % (Manual ) 1, Neutrophils # Not Reportable, Lymphocytes # Not Reportable, Plt Morphology Comment Appears Adequate, Polychromasia SLIGHT = 2-3 cells 01/26/19 06:37: Phosphorus 8.8 H 01/26/19 06:37: Sodium 129 L, Potassium 4.9, Chloride 91 L, Carbon Dioxide 21 L , Anion Gap 22 H, BUN 102 H, Creatinine 3.50 H, Estimated GFR (MDRD) 19, Glucose 106 H, Uric Acid 8.9 H, Calcium 7.6 L, Total Bilirubin 10.9 H, AST 185 H , ALT 103 H, Alkaline Phosphatase 360 H, Serum Total Protein 5.5 L, Albumin 3.6 , Globulin 1.9 L, Albumin/Globulin Ratio 1.9 01/25/19 19:35: Sodium 128 L, Potassium 4.7, Chloride 89 L, Carbon Dioxide 21 L , Anion Gap 23 H, BUN 95 H, Creatinine 3.68 H, Estimated GFR (MDRD) 18, Glucose 111 H, Calcium 7.6 L A/P - Problem (1) Small cell carcinoma Current Visit: Yes Code(s): C80.1 - MALIGNANT (PRIMARY) NEOPLASM, UNSPECIFIED Status: Acute (2) Tumor lysis syndrome Current Visit: Yes Code(s): E88.3 - TUMOR LYSIS SYNDROME Status: Acute (3) Acute kidney failure Current Visit: Yes Status: Acute (4) Hyperuricemia Current Visit: Yes Code(s): E79.0 - HYPERURICEMIA W/O SIGNS OF INFLAM ARTHRIT AND TOPHACEOUS DIS Status: Acute (5) Hyponatremia Current Visit: Yes Code(s): E87.1 - HYPO-OSMOLALITY AND HYPONATREMIA Status : Acute - Plan Plan: 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
--- NOTE | 2019-01-26 13:57 | RAD ---
CHEST 1 VIEW: Date: 01/26/19 HISTORY: Catheter placement. FINDINGS: Heart size appears enlarged. Film is of suboptimal inspiration. A MediPort type catheter is seen. The catheter tip overlies the superior vena cava. There are no signs of pneumothorax. IMPRESSION: 1. Cardiomegaly. 2. MediPort type catheter; catheter tip overlies the superior vena cava. No signs of pneumothorax. POS: TPC
--- NOTE | 2019-01-26 15:51 | PRG ---
DATE OF SERVICE: 01/26/2019 SERVICE: Nephrology. SUBJECTIVE: A 53-year-old male patient admitted due to multiple electrolyte derangements and acute kidney injury. The patient with recent diagnosis of colon cancer was found to have hyponatremia and acute kidney injury in the office. Further evaluation revealed tumor lysis syndrome. The patient was treated with IV fluids, rasburicase, and hypertonic solution and later got chemotherapy. Clinically improved today. Swelling is getting better. Denied shortness of breath, cough, nausea, or vomiting. Oral intake remained poor though the patient is tolerating Nepro. OBJECTIVE: VITAL SIGNS: Temperature 97.4, pulse 93, respiratory rate 18, SpO2 of 94 on 3 L nasal cannula, blood pressure is 115/58. GENERAL: Obese male, in no obvious distress. Afebrile. Anicteric. Acyanotic. HEENT: Normocephalic, atraumatic. Oral mucosa is moist. CARDIOVASCULAR: Regular rhythm and rate with normal heart sounds 1 and 2. No obvious murmur was appreciated. RESPIRATORY: Fair air entry bilaterally with few bibasilar crackles. No rhonchi or use of accessory muscles appreciated. GI: Obese, soft, nontender, nondistended with normal bowel sounds. UROGENITAL: Scrotal edema noted. EXTREMITIES: Moderate bilateral leg edema noted. No erythema appreciated. SUPERVISOR TILE AND MOTTLE: Conscious, alert, and oriented x3 with appropriate mental status. Cranial nerves 2 through 12 are grossly intact. The patient is ambulant. DIAGNOSTIC DATA: CBC today showed WBC count of 13.1, hemoglobin of 8.7, MCV of 92.8, platelets of 163. CMP showed sodium 129, potassium 4.9, chloride 91, CO2 of 21, BUN 102, creatinine 3.5, glucose 106, calcium 7.6, total bilirubin 10.9, AST 185, ALT 103, alkaline phosphatase 360, total protein 5.5, albumin 3.6, globulin 1.9. Phosphorus is 8.8 down from 9.4. Uric acid is 8.9. ASSESSMENT AND PLAN: 1. Acute kidney injury: Multifactorial in etiology with tumor lysis syndrome and volume depletion interplaying. Contribution from contrast-induced nephropathy is possible as well as ATN. Creatinine is down from peak of above 6 to 3.5. 2. Tumor lysis syndrome: Spontaneous. The patient is status post treatment with rasburicase x2. Uric acid is down from above 15. 3. Hyperphosphatemia: Due to tumor lysis syndrome and chronic kidney disease. Phosphorus is down today from 9.4 to 8.8 without decrease in phosphate binder and change in diet. 4. Hyperuricemia: Status post rasburicase treatment. 5. Volume overload: Most likely due to hypoalbuminemia with extravasation of fluid as well as decreased venous and lymphatic drainage due to abdominal lymphadenopathy and liver mass with portal hypertension. 6. Bilateral leg edema: Due to hypoalbuminemia and decreased venous and lymphatic drainage. 7. Anemia: Due to depressed production as well as increased hemolysis. Hematology following. 8. Acute respiratory failure with hypoxia: Due to pulmonary congestion from fluid overload. Some improvement with diuretics has been noted. 9. Hyponatremia: Due to syndrome of inappropriate ADH secretion with minor contribution from poor solute intake. Improved with hypertonic solution. Currently on fluid restriction. 10. Worsening azotemia: BUN today is 102. [place] to be related to high protein diet as well as diuretic therapy. PLAN: 1. We will hold diuretics given worsening azotemia. We will also change diet from high protein diet to low protein diet. We will also replace Nepro with Suplena. 2. We will consider giving albumin with a view to expanding the intravascular space and improving azotemia. 3. Continue increased dose of Renvela. 4. Wean oxygen as tolerated. 5. Disposition: Possible discharge tomorrow is considered. Job ID: [id number]
[2019-01-26 16:37] VITALS: BP 110/55; TEMP 97.7
[2019-01-26 16:39] LABS: Albumin 3.4 g/dL (3.5-5.0); Anion Gap 22 mmol/L (10-20); BUN (Urea Nitrogen) 106 mg/dL (8.4-25.7); Calc. Creatinine Clearance 52 mL/min (70-130); Calcium 7.4 mg/dL (7.8-10.44); Carbon Dioxide 21 mmol/L (22-29); Chloride 91 mmol/L (98-107); Estimated GFR-MDRD 21; Glucose 108 mg/dL (70-105); Potassium 5.2 mmol/L (3.5-5.1); Sodium 129 mmol/L (136-145)
[2019-01-26] MEDS ORDERED: PROPOFOL 200 MG/20 ML VIAL ONE (16:42)
[2019-01-26] MEDS ORDERED: Lidocaine 1% PF 5 ML VIAL ONE (16:42)
[2019-01-26 16:43] LABS: Phosphorus 9.2 mg/dL (2.3-4.7)
--- NOTE | 2019-01-27 02:10 | DIS ---
DATE OF ADMISSION: 01/20/2019 DATE OF DISCHARGE: 01/26/2019 DISCHARGE DIAGNOSES: 1. 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 2. Hyperuricemia secondarily to #1. 3. Hyponatremia. 4. Tumor lysis syndrome. 5. Hyperphosphatemia. 6. Acute kidney injury on chronic kidney disease stage 3 to 4. 7. Transaminitis. 8. Normocytic anemia secondary to chemotherapy. CONSULTATIONS: 1. Dr. Jones with Nephrology Service. 2. Dr. Andrei Sanabria with Medical Oncology Service. PERTINENT LABORATORY AND X-RAY FINDINGS: Sodium ranged between 110 to 129, potassium ranged between 4.5 to 5.4. Creatinine ranged between 3.14 to 5.39. Uric acid level ranged between 7.3 to 19.3. Phosphorus ranged between 5.5 to 9.4. AST ranged between 185 to 361, ALT ranged between 103 to 168. CBC showed a white blood cell count ranged between 9.4 to 17.3, hemoglobin ranged between 6.6 to 11.9. Renal ultrasound dated 01/21/2019, showed left renal cyst without hydronephrosis. Bilateral lower extremity venous Doppler study dated 01/21/2019, showed no evidence for DVT. Abdominal ultrasound dated 01/21/2019, showed diffuse hepatic metastatic process. Moderately distended gallbladder with sludge. Portable chest x-ray dated 01/26/2019, showed no evidence for pneumothorax. Bilateral pulmonary edema noted. MediPort catheter in place. HOSPITAL COURSE: The patient was initially admitted after presenting with a recent diagnosis of stage IV squamous cell colon carcinoma with lymphatic and hepatic metastasis. The patient was noted with severe hyponatremia with initial sodium in the 110-114 range, at which point, the patient was admitted to the medical floor. The patient had slow correction of his hyponatremia and evaluated by the Nephrology Service. The patient had slow improvement to sodium values throughout the hospital course, increasing to 129 by the time of discharge. The patient was initially placed on IV fluids, however due to volume overload, the patient was transitioned to fluid restriction with a current level of 1.2 L per 24 hours. The patient was also given IV Lasix due to volume overload and peripheral edema. The patient was monitored closely for acute kidney injury in the context of known chronic kidney disease stage 3 to 4. The patient had mild improvement in renal function with diuretic therapy as well as albumin infusions and initiation of sodium bicarbonate. The patient was discontinued on nephrotoxic agents and overall clinically stabilized. The patient did receive chemotherapy at the direction of Medical Oncology Service as well as [facility]. The patient was noted with persistent hypoxia requiring oxygen supplementation due to volume overload, pulmonary edema, and poor diaphragmatic excursion. Due to the patient's comorbid status and volume overload, the patient required evaluation for home oxygen, at which point the patient was noted in the low 80% range on room air. Overall, the patient clinically stabilized with supportive management and electrolyte replacement. I have examined the patient at the time of discharge and discussed followup instructions. The patient and family verbalized understanding and in agreement, ready for discharge on 01/26/2019. DISCHARGE MEDICATIONS: 1. Metoprolol succinate 25 mg p.o. daily. 2. Tramadol 50 mg p.o. q.6 hours p.r.n. 3. Trazodone 50 mg p.o. at bedtime. 4. Allopurinol 200 mg p.o. daily. 5. Lidocaine patch 5% one patch transdermally daily. 6. Sodium bicarbonate 650 mg p.o. t.i.d. FOLLOWUP: The patient may follow up with his primary care provider, Dr. Brandon Schroeder within 7 days of discharge. The patient will follow up with Dr. Jones with Nephrology Service and to call his office for appointment time and date. The patient will follow up with Dr. Andrei Sanabria with Medical Oncology Service. CONDITION ON DISCHARGE: Stable. ACTIVITY: Ad-isaura. DIET: Renal. CODE STATUS: Full. SPECIAL INSTRUCTIONS: Home oxygen at 2 to 3 L/minute by nasal cannula continuously. DISPOSITION: Home on 01/26/2019. TIME SPENT: Total time preparing and coordinating discharge is 40 minutes. Job ID: [id number]
--- NOTE | 2019-01-28 17:08 | PDOC.OP ---
Operative Note - Operative Note Operative Note: PROCEDURE: Left internal jugular MediPort placement with ultrasound and fluoroscopic guidance DATE OF PROCEDURE: 01/26/2019 SURGEON: Soy Pena M.D. PREOPERATIVE DIAGNOSIS: Small cell cancer of the rectum, metastatic POSTOPERATIVE DIAGNOSIS: Small cell cancer of the rectum, metastatic HISTORY: Patient has been diagnosed with cancer. Chemotherapy has been recommended and a Mediport has been requested for this. Due to his recent history of renal failure the decision was made to place is in the internal jugular position. OPERATIVE PROCEDURE IN DETAIL: After informed consent was obtained and appropriate preoperative antibiotics administered, the patient was taken to the operating room and placed in supine position and monitored anesthesia care was administered. The patient was then placed in Trendelenburg position and the right internal jugular vein accessed easily under direct ultrasound guidance on the first attempt with excellent flow of dark venous non-pulsatile blood. A wire threaded easily and was confirmed to be in the patent compressible vein by ultrasound. Additional local anesthesia was infused to the skin and subcutaneous tissues lateral and inferior to the clavicle. A skin incision was made and a subcutaneous pocket developed inferiorly. A Mediport was obtained and confirmed to fit in the subcutaneous pocket. This was secured inferiorly to the pectoralis fascia with a Prolene suture, which was clamped, but not tied. Fluoroscopy was then available and this showed that the tip of the wire was in the right subclavian vein. A wire was drawn back into the internal jugular vein and attempted to be passed into the superior vena cava without success. The patient's head was turned his arm was pulled inferiorly and the wire was twisted to try to get it to advance down the proper path but despite all maneuvers the wire continued to go into the subclavian and then coil back on itself. A couple attempts were made to access the right subclavian vein without success. Given the fact that the wire was coiled back on itself and the subclavian vein was felt that there might be a stenosis so no further attempts were made to access this. Therefore attention was turned to the left internal jugular vein. This was patent and compressible by ultrasound was accessed easily under direct ultrasound guidance. A wire passed easily into the superior vena cava from this approach. The decision was made to use the existing right infraclavicular subcutaneous pocket rather than creating another incision on the left chest. Local anesthesia was infused and the Mediport tubing was tunneled from the infraclavicular incision to the left internal jugular access site. The dilator and sheath were then placed over the wire and the dilator and wire removed leaving the sheath in place. The clamped MediPort tubing was tunneled through the sheath, which was then split and removed leaving the MediPort tubing in place. The tubing was adjusted until the tip was confirmed by fluoroscopy to be in the superior vena cava just above the atrium. The tubing was clamped at the skin level and cut and the tubing secured to the port, which was then placed in the subcutaneous pocket. The previously placed suture was secured and two additional sutures were placed to fix the port in place within the pocket. The port was aspirated with the Hussein needle and had excellent flow of dark venous non-pulsatile blood and easily flushed without resistance. The subcutaneous tissues were closed with a running Monocryl suture, following which the skin was closed with a running subcuticular Monocryl suture. Both internal jugular incisions were also closed in layers with Monocryl suture. Dermabond dressings were placed and the hub was again accessed through the skin and confirmed to easily aspirate and easily flush. The course of the catheter was confirmed by fluoroscopy to be smooth with the tip appropriately located in the superior vena cava. The patient was taken to recovery in good condition. Estimated blood loss was minimal. There were no complications. There were no specimens.
== END 2019-01-26 17:46 | disposition home or self-care (01) | DRG 673 ==
LOC: SCSER 14:49 → ONC 18:58
PROVIDERS: ADMIT Internal Medicine; ATTEND Internal Medicine
PROC: 0JH60WZ Insertion of Totally Implantable Vascular Access Device into Chest Subcutaneous Tissue and Fascia, Open Approach (ICD-10-PCS; principal; 2019-01-26)
PROC: 02HV33Z Insertion of Infusion Device into Superior Vena Cava, Percutaneous Approach (ICD-10-PCS; 2019-01-26)
DX: E88.3 Tumor lysis syndrome (principal); J96.01 Acute respiratory failure with hypoxia; E22.2 Syndrome of inappropriate secretion of antidiuretic hormone; C78.7 Secondary malignant neoplasm of liver and intrahepatic bile duct; C19 Malignant neoplasm of rectosigmoid junction; E87.2 Acidosis; C77.9 Secondary and unspecified malignant neoplasm of lymph node, unspecified; N18.4 Chronic kidney disease, stage 4 (severe); N17.0 Acute kidney failure with tubular necrosis; E83.51 Hypocalcemia; E87.70 Fluid overload, unspecified; E83.39 Other disorders of phosphorus metabolism; D64.81 Anemia due to antineoplastic chemotherapy; D72.829 Elevated white blood cell count, unspecified; E80.6 Other disorders of bilirubin metabolism; E66.9 Obesity, unspecified; I12.9 Hypertensive chronic kidney disease with stage 1 through stage 4 chronic kidney disease, or unspecified chronic kidney disease; E79.0 Hyperuricemia without signs of inflammatory arthritis and tophaceous disease; E86.9 Volume depletion, unspecified; N14.2 Nephropathy induced by unspecified drug, medicament or biological substance; Z68.39 Body mass index [BMI] 39.0-39.9, adult; T45.1X5A Adverse effect of antineoplastic and immunosuppressive drugs, initial encounter
CPT/HCPCS: 36415; 71045; 71260; 74177; 76700; 76705; 76770; 80048; 80053; 80076; 81003; 81015; 82248; 82306; 82378; 82436; 82550; 82570; 82805; 83615; 83690; 83735; 83930; 83935; 84100; 84133; 84300; 84550; 85025; 85610; 85730; 93005; 93970; 96361; 96374; 96377; C1788; J0690; J1100; J1642; J1940; J2001; J2405; J2469; J2505; J2704; J2783; J3010; J7050; J7131; J9045; J9181; P9047; Q5108; Q9967

== ENCOUNTER 2019-01-31 17:57 | Inpatient (IN) | payer BC ==
[2019-01-31] MEDS ORDERED: Morphine 4 MG/ML VIAL ONE (18:38)
[2019-01-31] MEDS ORDERED: Cefepime 1 GM VIAL ONE (18:39)
[2019-01-31 18:44] LABS: ALT (SGPT) 52 U/L (8-55); AST (SGOT) 30 U/L (5-34); Albumin 3.2 g/dL (3.5-5.0); Alkaline Phosphatase 225 U/L (40-150); Anion Gap 20 mmol/L (10-20); BUN (Urea Nitrogen) 82 mg/dL (8.4-25.7); Calc. Creatinine Clearance 0 mL/min (70-130); Calcium 8.2 mg/dL (7.8-10.44); Carbon Dioxide 24 mmol/L (22-29); Chloride 95 mmol/L (98-107); Estimated GFR-MDRD 33; Globulin 2.1 g/dL (2.4-3.5); Glucose 91 mg/dL (70-105); Hemoglobin 7.6 g/dL (14.0-18.0); Lipase Less than 4 U/L (8-78); Mean Corpuscular HGB CONC 33.7 g/dL (32.0-36.0); Mean Corpuscular Hemoglobin 30.8 pg (27.0-31.0); Mean Corpuscular Volume 91.4 fL (78.0-98.0); Mean Platelet Volume 11.5 fL (7.4-10.4); Platelet Count 12 thou/uL (130-400); Potassium 5.6 mmol/L (3.5-5.1); Protein, Total 5.3 g/dL (6.0-8.3); RBC Distribution Width 15.4 % (11.5-14.5); Red Blood Cell (RBC) Count 2.47 mill/uL (4.70-6.10); Sodium 133 mmol/L (136-145); White Blood Cell (WBC) Count 0.1 thou/uL (4.8-10.8)
--- NOTE | 2019-01-31 19:00 | RAD ---
PORTABLE CHEST ONE VIEW: Date: 01-31-19 Time: 6:29 p.m. History: Cancer. Swelling in the scrotal region. Sepsis. FINDINGS/IMPRESSION: Comparison made with exam of 01-26-19. The heart is enlarged. Mediport catheter remains in place. No lobar consolidation, pneumothoraces or large effusions are seen. There is mild pulmonary vascular congestion. POS: [facility]
--- NOTE | 2019-01-31 19:05 | CT ---
CT ABDOMEN AND PELVIS WITHOUT CONTRAST: History: Colon cancer with mets. Patient presents to the Emergency Department with swelling of the sc rotum and associated pain. Difficulty ambulating. Jaundice. Comparison: Contrast enhanced CT scan of the chest, abdomen, and pelvis dated 01-18-19. FINDINGS: Absence of oral and IV contrast reduces the sensitivity of the exam for evaluation for solid organs a nd bowel. Liver mets are again seen. No free air is noted. There is mild ascites. No calcified gallstones are s een. No calculi are seen in the kidneys, ureters, or urinary bladder. There is a cortical cyst arisin g from the left kidney again seen and is stable. There are fat containing hernias. There are degenerative changes in the spine. Thoracic calcification s without evidence of aneurysmal dilation of the abdominal aorta. There are bilateral hydroceles. The re is edema in the SC fat of the abdominal and pelvic villarreal. IMPRESSION: 1. Hepatic mets. 2. Mild ascites. 3. Bilateral hydroceles. 4. No CT evidence of urinary calculi or obstruction. 5. Left renal cysts. POS: [facility]
[2019-01-31 19:06] LABS: INR-International Normal Ratio 1.5; PTT 37.4 SEC (22.9-36.1); Prothrombin Time 17.9 SEC (12.0-14.7)
[2019-01-31 19:19] LABS: CKMB 1.6 ng/mL (0-6.6)
[2019-01-31 20:09] LABS: Bilirubin 1+ (Negative); Blood, Urine Negative (Negative); Glucose, Urine (Dipstick) Normal (Negative); Leukocyte Negative Leu/uL (Negative); Nitrite Negative (Negative); Protein, Urine (Dipstick) 20 mg/dL (Neg-Trace); Urobilinogen Normal mg/dL (Less than 2)
[2019-01-31 20:11] LABS: Clarity Clear (Clear)
[2019-01-31] MEDS ORDERED: Fentanyl 100 MCG/2 ML VIAL ONE (20:49)
[2019-01-31] MEDS ORDERED: Norepinephrine 4 MG/4 ML VIAL ONE (21:56)
[2019-01-31 22:50] LABS: Lactic Acid 2.5 mmol/L (0.5-2.2)
[2019-01-31 23:00] LABS: Critical Call Chem Troponin I RESULT DECREASING
[2019-01-31] MEDS ORDERED: Ondansetron PF 4 MG/2 ML Vial IVP PRN (23:35)
[2019-01-31] MEDS ORDERED: Ondansetron ODT 4 MG TAB PO PRN (23:35)
[2019-02-01 02:18] LABS: Critical Call Chem Troponin I RESULT DECREASING; Troponin I 0.452 ng/mL (< 0.028)
[2019-02-01] MEDS ORDERED: Cefepime 2 GM in Sodium Chloride 0.9% 100 ML IVPB SCH (03:00)
[2019-02-01] MEDS: Cefepime 2 GM in Sodium Chloride 0.9% 100 ML IVPB SCH ×3 (03:52→21:26)
[2019-02-01] MEDS ORDERED: traZODone HCl 50 MG TAB PO PRN (04:01)
[2019-02-01 04:17] LABS: Anion Gap 19 mmol/L (10-20); BUN (Urea Nitrogen) 89 mg/dL (8.4-25.7); Calc. Creatinine Clearance 72 mL/min (70-130); Calcium 7.9 mg/dL (7.8-10.44); Carbon Dioxide 22 mmol/L (22-29); Chloride 97 mmol/L (98-107); Estimated GFR-MDRD 30; Glucose 83 mg/dL (70-105); Potassium 5.6 mmol/L (3.5-5.1); Sodium 132 mmol/L (136-145)
[2019-02-01 04:21] LABS: Platelet Count 19 thou/uL (130-400); White Blood Cell (WBC) Count 0.1 thou/uL (4.8-10.8)
[2019-02-01 05:06] LABS: Anisocytosis SLIGHT = 6-15 cells (100X) (0-5/hpf); Hemoglobin 7.2 g/dL (14.0-18.0); MDiff Complete? YES; Mean Corpuscular HGB CONC 32.9 g/dL (32.0-36.0); Mean Corpuscular Hemoglobin 30.2 pg (27.0-31.0); Mean Corpuscular Volume 91.8 fL (78.0-98.0); Mean Platelet Volume 9.5 fL (7.4-10.4); RBC Distribution Width 15.7 % (11.5-14.5); Red Blood Cell (RBC) Count 2.39 mill/uL (4.70-6.10)
[2019-02-01] MEDS ORDERED: Acetaminophen 325 MG TAB PO PRN (07:50)
[2019-02-01] MEDS: Morphine 4 MG/ML VIAL SLOW IVP PRN ×4 (08:22→21:27)
[2019-02-01] MEDS: Vancomycin HCl 1 GM in Premix Bag 1 BAG IVPB SCH ×2 (08:24→21:27)
[2019-02-01] MEDS: Pantoprazole 40 MG VIAL IVP SCH (08:24)
--- NOTE | 2019-02-01 09:00 | CON ---
DATE OF CONSULTATION: 02/01/2019 TIME SPENT: This is 45 minutes of critical care time. HISTORY OF PRESENT ILLNESS: The patient is a 53-year-old male with metastatic small cell cancer of the rectum to the liver. He received chemotherapy about a week ago. He has been bothered by severe scrotal swelling to the point where it has obstructed his urethral meatus. He also has not been consuming much fluid. When he presented with the above complaints, he was found to be profoundly hypotensive. He was started on Levophed, which has corrected his blood pressure for the most part. He is found to be severely neutropenic, anemic, and thrombocytopenic. He denies any fever or chills. He has not had any cough. PAST MEDICAL HISTORY: 1. Hypertension. 2. Recent diagnosis of small cell cancer of the rectum. PAST SURGICAL HISTORY: MediPort placement. SOCIAL HISTORY: Nonsmoker. Does not consume alcohol. Drinks 1 to 2 beers a day. FAMILY MEDICAL HISTORY: Lung cancer in his mother. ALLERGIES: NONE. MEDICATIONS: Prior to admission; 1. Metoprolol 25 mg once daily. 2. Tramadol 50 mg every 6 hours p.r.n. pain. 3. Bumex 1 mg daily as needed. 4. Allopurinol 100 mg two daily. 5. Sodium bicarbonate 650 mg one three times daily. 6. Trazodone 50 mg nightly. 7. Lidocaine gel. REVIEW OF SYSTEMS: Denies fever, chills, nausea, vomiting, or diarrhea. No chest pain, hematemesis, melena, hematochezia, or hematuria. PHYSICAL EXAMINATION: VITAL SIGNS: Temperature 98.0, pulse 117, blood pressure 104/57, and O2 saturation 92% on room air. He is currently on Levophed drip at 12 mcg/minute. His intake since admission has been 1011 mL, output 185 mL. GENERAL: He is lying in bed, in no acute distress. HEENT: Pupils are reactive. Sclerae are anicteric. Oropharynx is clear. NECK: No adenopathy or JVD. LUNGS: Clear to auscultation without wheezing or rhonchi. CARDIAC: S1, S2. Regular. ABDOMEN: Mildly tender below the right costal margin. GENITOURINARY: He has severe scrotal edema with blistering on the inferior aspect of the scrotum. He has a Carpenter catheter in place. EXTREMITIES: 2+ edema from his thighs downward. LABORATORY DATA: Sodium of 132, potassium 5.6, chloride 97, CO2 of 22, BUN 89, creatinine 2.3, glucose 83, and calcium 7.9. Lactate 2.5 after initially being 4.2. White blood cell count 0.1, hemoglobin 7.2, hematocrit 21.9, and platelet count 19. IMAGING DATA: Chest x-ray shows no mass, effusion, or infiltrate. MediPort is noted. ASSESSMENT: 1. Neutropenic sepsis. 2. Pancytopenia. 3. Severe scrotal edema and probably some component of post ureteral obstruction. RECOMMENDATIONS: 1. I think the patient is probably volume depleted, so I will give him a couple of bags of normal saline. This may make his peripheral edema worse, but that is purely cosmetic. 2. Check cortisol level to rule out adrenal insufficiency. 3. Continue broad-spectrum IV antibiotics. 4. I would recommend Nephrology consultation. 5. I would also suggest possible urologic consultation to look at the scrotal area. Job ID: [id number]
[2019-02-01] MEDS: Sodium Chloride 0.9% 1,000 ML IV SCH ×2 (09:24→12:44)
[2019-02-01] MEDS: Norepinephrine 8 MG in Dextrose 5% in Water 242 ML IVPB PRN (10:22)
[2019-02-01] MEDS: Albumin 25% 25 GM/100 ML BOT IVPB SCH ×2 (12:44→17:41)
--- NOTE | 2019-02-01 15:29 | PDOC.HOSPP ---
- Subjective Encounter Date: 02/01/19 Encounter Time: 15:28 Subjective: EXTREMELY FATIGUES, LOOKS ILL, PAIN IN THE LOWER BACK AND SCROTAL AREA - Objective Vital Signs & Weight: Vital Signs (12 hours) Temp Pulse Resp BP Pulse Ox 02/01/19 07:00 97.6 F 02/01/19 04:40 98.0 F 114 H 19 96/59 L 94 L 02/01/19 04:00 98.0 F 02/01/19 03:55 98.0 F 112 H 18 98/54 L 94 L Weight Admit Weight 299 lb Weight 299 lb 2.676 oz Most Recent Monitor Data Heart Rate from ECG 114 NIBP 90/53 NIBP BP-Mean 65 Respiration from ECG 23 SpO2 94 I&O: 01/31/19 02/01/19 02/02/19 06:59 06:59 06:59 Intake Total 1011 900 Output Total 185 45 Balance 826 855 Result Diagrams: 02/01/19 03:31 02/01/19 03:31 Radiology Reviewed by me: Yes EKG Reviewed by me: Yes Hospitalist ROS - Medication Medications: Active Medications Generic Name Dose Route Start Last Admin Trade Name Freq PRN Reason Stop Dose Admin Albumin Human 25 gm 02/01/19 11:30 02/01/19 12:44 Albumin 25% IVPB 02/02/19 05:31 25 gm Q6H DAYLIN Administration Norepinephrine Bitartrate 8 mg 250 mls @ 0 mls/hr 01/31/19 22:04 02/01/19 10: 22 / Dextrose/Water IVPB 250 mls INF PRN Administration Blood Pressure Vancomycin HCl 1 gm/ Device 200 mls @ 200 mls/hr 02/01/19 08:00 02/01/19 08: 24 IVPB 200 mls 0800,2000 DAYLIN Administration Cefepime HCl 2 gm/ Sodium 100 mls @ 200 mls/hr 02/01/19 04:00 02/01/19 12:44 Chloride IVPB 100 mls 0400,1200,2000 DAYLIN Administration Sodium Chloride 1,000 mls @ 100 mls/hr 02/01/19 08:00 02/01/19 12:44 Normal Saline 0.9% IV 02/02/19 03:59 1,000 mls .Q10H DAYLIN Administration Morphine Sulfate 4 mg 02/01/19 07:50 02/01/19 12:38 Morphine SLOW IVP 4 mg Q4H PRN Administration Pain Pantoprazole Sodium 40 mg 02/01/19 09:00 02/01/19 08:24 Protonix IVP 40 mg DAILY DAYLIN Administration Trazodone HCl 50 mg 02/01/19 04:01 02/01/19 04:45 Desyrel PO 50 mg HS PRN Administration Insomnia - Exam General Appearance: ill appearing Eye: PERRL, scleral icterus ENT: normocephalic atraumatic, no oropharyngeal lesions Neck: supple, symmetric, no JVD Heart: RRR, no murmur Respiratory: CTAB, no wheezes, no rales, no ronchi Gastrointestinal: soft, non-tender, non-distended Extremities: 2+ LE edema Extremeties - other findings: scrotal edema + Carpenter Neurological: CN's grossly intact Musculoskeletal: generalized weakness Psychiatric: normal affect, normal behavior, A&O x 3 Hosp A/P (1) Edema Code(s): R60.9 - EDEMA, UNSPECIFIED Status: Acute (2) Hypotension Status: Acute (3) Lactic acidosis Code(s): E87.2 - ACIDOSIS Status: Acute (4) Small cell carcinoma Code(s): C80.1 - MALIGNANT (PRIMARY) NEOPLASM, UNSPECIFIED Status: Acute - Plan Patient S/P chemo to rectal small cell carcinoma with mets to liver Came in for increased scrotal swelling, difficulty urinating and significant pain Was found to be hypotensive and tachycardic with [place] on arrival, requiring Levophed, IV fluids, Carpenter for bladder decompression Patient is also profoundly pancytopenic He is placed in reverse isolation and started on Vanc and Cefepime Blood cx showig enterobacter Will continue to trend Lactic acid levels Guarded prognosis Full code
--- NOTE | 2019-02-01 15:56 | CON ---
DATE OF CONSULTATION: 02/01/2019 REASON FOR CONSULTATION: Renal insufficiency and anasarca. REQUESTING PHYSICIAN: Dr. Kajal Lora. HISTORY OF PRESENT ILLNESS: A 53-year-old male patient with recent diagnosis of metastatic colon cancer with metastasis to the liver, associated with anasarca and spontaneous tumor lysis syndrome, who was recently discharged from this hospital on January 26 following initiation of chemotherapy. The patient was treated with aggressive IV fluid therapy and diuretics during prior hospitalization for spontaneous tumor lysis syndrome, which led to worsening of swelling. During that admission, the patient has developed worsening azotemia, hence diuretic was held and later was restarted on p.r.n. basis. The patient was brought to the hospital due to worsening weakness as well as swelling, especially scrotal swelling leading to inability to urinate due to occlusion of ureteral orifice by swelling. The patient on evaluation in the ER was found to have severe neutropenia, hence was started on broad-spectrum antibiotics and admitted to the ICU for hypotension as he was started on Levophed. Creatinine has actually improved as well as the BUN. However, the patient is still generally swollen. He continues to make some urine. The patient complains of dry mouth and excessive thirst. He also was found to have hyponatremia, hence was discharged on 1500 fluid restriction. OBJECTIVE: VITAL SIGNS: Temperature 97.6, pulse 114, respiratory rate 23, SpO2 of 94, blood pressure is 90/53. GENERAL: Chronically ill-looking male, in mild distress. Afebrile. The patient is icteric. HEENT: Normocephalic and atraumatic. Oral mucosa is dry. NECK: Supple. Nontender with good range of motion. CARDIOVASCULAR: Regular rhythm, but tachycardic. RESPIRATORY: Fair air entry bilaterally with some transmitted breath sounds. No wheezing or rhonchi were appreciated. GI: Obese, soft, nontender, nondistended with normal bowel sounds. UROGENITAL: Scrotal edema noted. EXTREMITIES: [id number] bilateral leg edema appreciated. [employer]: Conscious and alert and oriented x3 with appropriate mental status. DIAGNOSTIC DATA: CBC today showed WBC count of 0.1, hemoglobin of 7.2, MCV of 91.8, and platelets of 19. BMP today showed sodium 132, potassium 5.6, chloride 97, CO2 of 22, BUN 89, creatinine 2.34, glucose 83, calcium 7.9. On admission on January 31, 2019, sodium was 133, potassium 5.6, chloride 95, CO2 of 24, BUN 82, creatinine 2.1, glucose 91, calcium 8.2, total bilirubin 18.0, AST 30, ALT 52, alkaline phosphatase 225, total protein 5.3, albumin 3.2, globulin 2.1. Lactic acid on presentation was 4.2, but repeat 3 hours later was 2.5. Cardiac markers on presentation showed CK-MB of 1.6 BNP 1155. Urinalysis on admission on January 31 showed clear urine with pH of 5.0; specific gravity of 1.01; protein 20; negative ketone, blood, nitrite, and leukocyte esterase. Chest x-ray on admission showed enlarged heart, but no lobar consolidation, pneumothorax, or large pleural effusion. There is mild pulmonary vascular congestion. CT scan of the abdomen and pelvis without contrast showed hepatic mets, mild ascites, bilateral hydroceles, left renal cyst, but no CT evidence of urinary calculus or obstruction. ASSESSMENT: 1. Resolving acute kidney injury: The acute kidney injury was thought to be multifactorial from tumor lysis syndrome, volume depletion with possible contribution from contrast-induced nephropathy. With aggressive diuretics during the last hospitalization, creatinine is down from 6 to 2 currently. 2. Anasarca: This is felt to be due to portal hypertension as well as decreased venous return from abdominal lymphadenopathy. 3. Septic shock: The patient is severely neutropenic and is currently growing gram-negative rods as well as Enterobacter species in blood. 4. Severe pancytopenia: This is due to chemotherapy. 5. Hyponatremia in the context of syndrome of inappropriate antidiuretic hormone secretion due to cancer and chemotherapy. Sodium is up from low levels of 120s to 133. Anticipates drop in sodium level with normal saline therapy. 6. Hyperbilirubinemia: Due to liver metastasis. Liver enzymes have actually gone down significantly. PLAN: 1. We will start volume expansion with albumin. Agree with gentle IV fluid hydration with normal saline. However, we will prefer to transition to sodium bicarb containing fluid due to metabolic acidosis. 2. We will consider diuretic when hemodynamics improve. 3. We will recheck renal function in the morning. 4. We will restart Renvela due to known hyperphosphatemia. 5. Antibiotics as per the primary attending. 6. Other treatment as per primary attending and Pulmonary and Critical Care. Job ID: [id number]
--- NOTE | 2019-02-01 16:49 | ULT ---
SCROTAL ULTRASOUND: 02/01/19 INDICATION: Scrotal edema. COMPARISON: Prior CT of the abdomen and pelvis dated 01/31/19. TECHNIQUE: Martinez scale, color Doppler and spectral Doppler images were obtained of the scrotum. FINDINGS: The right testicle measures 3.9 x 3 x 2.9 cm. The left testicle measures 4.0 x 3.0 x 2.9 cm. Epididym i appear within normal limits. No asa hydrocele is present. There is normal flow to both testicles. There is prominent scrotal wall thickening and edema present measuring up to 6.7 cm. IMPRESSION: 1. Prominent scrotal wall edema. 2. No intratesticular mass or torsion demonstrated. POS: [facility]
--- NOTE | 2019-02-01 18:52 | CON ---
DATE OF CONSULTATION: 02/01/2019 REASON FOR CONSULT: Scrotal swelling. HISTORY OF PRESENT ILLNESS: Mr. 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 Sanabria and MD Arteaga. The patient has received chemotherapy about a week ago, relates a 3- to 4-week history of scrotal swelling, diffuse body swelling. Decreased urine output has been noted per the patient. ER records reviewed. He presented with profound hypotension, septic picture, currently on Levophed. He also presented with severe hyponatremia, currently on pressure support and thrombocytopenia noted. He is also known to be leukopenic and currently on contact precaution. He is on gentle hydration, Nephrology following, Critical Care also following. The ER records were reviewed, in which 16-[place]auritan[place] Carpenter catheter was placed by the emergency room; despite scrotal swelling, only 75 mL of urine output was obtained consistent with dehydration. CT of the abdomen and pelvis obtained in-house demonstrating anasarca, no evidence of bilateral hydronephrosis, renal ureteral calculi. He has complained of scrotal discomfort, has had some hesitancy, decreased urine output. Wound Care has been consulted regarding scrotal swelling, currently on topical cream and barriers. He denies prior obstructive urinary symptoms, dysuria, gross hematuria, or UTI of concern. PAST MEDICAL HISTORY: History of small cell rectal cancer, followed by Dr. Sanabria and MD Arteaga. SURGICAL HISTORY: None. PSYCHIATRIC HISTORY: None. SOCIAL HISTORY: Negative x3. He is , family at bedside. ALLERGIES: NO KNOWN DRUG ALLERGIES. CURRENT MEDICATIONS: Include, 1. Acetaminophen. 2. Albumin. 4. Morphine. 5. Levophed. 6. Zofran. 7. Trazodone. 8. Vancomycin. PHYSICAL EXAMINATION: VITAL SIGNS: Temperature 97.6, currently his blood pressure is 90/50, heart rate 114, and saturation 94%. I's and O's 900 in, 45 mL of urine output out. GENERAL: The patient appears jaundiced consistent with labs. Fatigued, frail. at bedside. HEENT: Pupils are reactive, no significant lymphadenopathy. LUNGS: Decreased inspiratory effort. No rhonchi. Regular rate. ABDOMEN: Obese, protuberant. No rigidity. No rebound. : Severe scrotal penile edema with some breakdown of the skin and blistering. The foreskin is difficult to retract as he has severe scrotal edema from anasarca. Carpenter catheter draining orange-tinged urine. EXTREMITIES: 2+ to 3+ pitting edema extending from his lower extremity to his thigh, gluteal region. PERTINENT LABORATORY DATA: White count 0.1, hemoglobin 7.2, platelets 19, admitting platelets are 163. Presenting sodium is 121 to 124, currently 132, BUN 89, creatinine is 2.3. His baseline creatinine is variable from 2.7 to 5.3. Elevated troponins noted of 0.452. Elevated liver enzymes. Total bilirubin 18, direct bilirubin 7.8. UA demonstrates juma clear urine, 1+ bilirubins, no rbc's seen. CT of the abdomen and pelvis, which I reviewed myself, which demonstrates no evidence of hydronephrosis, no renal calculi appreciated, no significant BPH component per my review. Bilateral hydrocele, mild ascites, hepatic metastasis. IMPRESSION AND PLAN: Mr. Alfaro is a 53-year-old male, unfortunately with metastatic rectal cancer, undergoing chemotherapy, admitted for, 1. Hyponatremia. 2. Septic picture, liver failure, pancytopenia, with scrotal swelling due to anasarca. I do expect his scrotal edema to resolve with diuretics, however, unable to provide diuretics at this time as he needs pressor support for hypotension. Continue skin protectant barriers per Wound Care, scrotal elevation advised. Continue indwelling Carpenter catheter for strict inputs and outputs. Advised the patient and that when he is hemodynamically stable, gentle diuresis would be advised to decrease the scrotal swelling. will obtain a scrotal ultrasound. Continue medical management. No surgical intervention warranted Job ID: [id number] [facility]
--- NOTE | 2019-02-01 20:37 | HP ---
PRIMARY CARE DOCTOR: Dr. Brandon Schroeder. CODE STATUS: Full code. TIME OF EVALUATION: This patient was seen on January 31, at 10:05 p.m. CHIEF COMPLAINT: Worsening scrotal swelling and fatigue. HISTORY OF PRESENT ILLNESS: This is a 53-year-old male patient with past medical history of recently diagnosed colon cancer metastatic to the liver. 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 The patient had not been received chemo at that time. He was admitted here and discharged recently when the patient had been stable with improvement of the kidney failure and resolution of the electrolyte imbalance. At that time, the patient did continue to develop third spacing and significant fluid retention and for that reason, he has come back. The patient also presented with significant pancytopenia. As noted, he has received chemo recently and he is also having some associated fever and he has been hypotensive during admission. For that reason, he is being placed in ICU and is going to be getting vasopressors and be on broad-spectrum antibiotics. We consulted Pulmonary and Oncology for this matter. REVIEW OF SYSTEMS: All the systems were reviewed and negative except for the findings mentioned above. PAST MEDICAL HISTORY: Positive for hypertension, colon cancer with metastasis to the liver, and tumor lysis syndrome. PAST SURGICAL HISTORY: MediPort placement. PSYCHIATRIC HISTORY: No psych history. SOCIAL HISTORY: The patient drinks socially. Denies any drug use. Has no smoking history. FAMILY HISTORY: Reviewed and noncontributory for current presentation. KNOWN ALLERGIES: No known drug allergies. REPORTED MEDICATIONS: 1. Metoprolol. 2. Tramadol. 3. Bumex. 4. Allopurinol. 5. Sodium bicarb. 6. Trazodone. 7. Lidocaine. PHYSICAL EXAMINATION: VITAL SIGNS: On presentation; blood pressure 86/69, heart rate 114. Pain was 10/10. Oxygen saturation 95% on room air. GENERAL APPEARANCE: The patient is alert and oriented. The patient has significant bilateral leg edema and scrotal edema. HEENT: Eyes, normal conjunctivae. Dry oral mucosa. Anicteric. No JVD. RESPIRATORY: Bilateral air entry. No rales. No wheezes. Symmetric expansion. CARDIOVASCULAR: Normal rate and regular rhythm. No murmurs. No gallop. No edema. Hypotension. ABDOMEN: Soft. The patient has hepatomegaly that is mildly tender. Normal bowel sounds. MUSCULOSKELETAL: Baseline range of motion and strength. The patient has bilateral leg edema 4+. SKIN: Warm and intact. No pallor. No rash. No redness. Capillary refill seems to be intact. NEUROLOGIC: No evidence of any new focal weakness. Cranial nerves seems to be intact. PSYCHIATRIC: The patient is in good mood. No anxiety. Optimal judgment. DIAGNOSTIC DATA: EKG, the patient has EKG shows sinus tachycardia at the rate of 115 with low voltage QRS. RADIOLOGY: The patient has MediPort catheter is in place, no lobar consolidation, pneumothorax with large effusions seen. Mild pulmonary vascular congestion. Abdomen and pelvis CT showed hepatic mets, myositis, bilateral hydrocephalus. No evidence of urinary calculi or obstruction. Left renal cyst. LABORATORY DATA: White count 0.1, hemoglobin 7.6, platelet count 12. Coagulation; PT 17.9, INR 1.5, PTT 37.4. Chemistry; sodium 133, potassium 5.6, chloride 95, carbon dioxide was 24, anion gap 20, BUN 82, creatinine 2.11, GFR 33, glucose 91. Lactic acid initially was 4.2, the repeat one was 2.5. The uric acid was 7.5. On the previous admission, his uric acid, the last one, was 9.4. Total bilirubin was 18, AST 30, ALT 52, alkaline phosphatase 225. Troponin initially 0.6, second one 0.5, third one was 0.4. Beta-natriuretic peptide 1155. Albumin 3.2. Serum total protein 5.3, globulin 2.1, and cortisols 56.7. ASSESSMENT AND PLAN: The patient is admitted been admitted to ICU. Critical care time more than 35 minutes in coordination of care, patient counseling, evaluation at bedside, stabilization of the patient, discussion with ER physician for plan of management as agreed with Hematology and Pulmonary by ER physician. 1. Septic shock. The patient is septic. The patient is leukopenic. The patient has been covered with broad-spectrum antibiotics, unclear what the source is from at this point. 2. Pancytopenia secondary to chemo. Hematology has been consulted for recommendations. There is no evidence of bleeding at this point. The patient is also anticoagulated likely due to underlying liver mets. We will monitor for any bleeding. We will treat accordingly. 3. Hyponatremia, sodium 132. We will monitor and treat accordingly. 4. Hyperkalemia, potassium 5.6, likely secondary to kidney failure. We will treat accordingly. 5. Acute kidney injury, likely secondary to tumor lysis syndrome as seen on previous admissions. We will consult Nephrology for any further recommendations. 6. Lactic acidosis, likely secondary to infection. The patient is receiving treatment for it. 7. Metastatic liver disease with elevated LFTs including bilirubin and alkaline phosphatase. We will treat underlying condition. 8. Arf-VH-btiveiwjv myocardial infarction, type 2. The patient has troponin 0.6, 0.5, and 0.4, likely secondary to septic shock. We will treat underlying condition likely for the patient to have acute colitis seen at this point. 9. Deep venous thrombosis prophylaxis. 10. Rectal cancer with metastasis to the liver, being followed by Oncology, status post chemo. Job ID: [id number]
[2019-02-01] MEDS: Vasopressin 40 UNIT, Admixture Fee 1 EACH in Sodium Chloride 0.9% 100 ML IV SCH (22:54)
[2019-02-02] MEDS: Hydrocortisone Sod Succ/PF 100 mg/2 ml Vial IVP SCH ×5 (00:06→23:47)
[2019-02-02] MEDS: Albumin 25% 25 GM/100 ML BOT IVPB SCH ×2 (00:06→06:06)
[2019-02-02 00:14] LABS: Actual Bicarbonate (HCO3a) 18.9 mEq/L (22-28); Base Excess (BEa) -8.4 mEq/L (-2.0 to +3.0); CO2 Tension 47.2 mmHg (35.0-45.0); Calcium, Ionized 0.99 mmol/L (1.12-1.30); Carboxyhemoglobin (COHb) 2.1 gm% (0.0-3.0); Hemoglobin (Hb) 9.5 g/dL (14.0-18.0); O2 Tension (PaO2) 91.6 mmHg (80.0-100.0); Potassium - ABG Lab 6.23 mmol/L (3.70-5.30)
[2019-02-02 00:17] LABS: Puncture Site RRA; pH, Arterial 7.22 (7.35-7.45)
[2019-02-02] MEDS ORDERED: Midazolam HCl 2 mg/2 ml Vial ONE (01:01)
[2019-02-02] MEDS ORDERED: Ventilator Sedation Protocol 1 EACH FS SCH (01:15)
[2019-02-02] MEDS ORDERED: Midazolam HCl 2 mg/2 ml Vial SLOW IVP SCH (01:15)
--- NOTE | 2019-02-02 01:26 | CON ---
DATE OF CONSULTATION: 02/01/2019 REASON FOR CONSULTATION: Small cell carcinoma of the rectum. HISTORY OF PRESENT ILLNESS: A 53-year-old male with metastatic small cell carcinoma of the rectum with metastasis to intraabdominal lymph nodes and multiple liver metastases, presenting to the hospital with worsening scrotal edema, pain , and generalized fatigue, and subsequently found to be in gram-negative septic shock secondary to enterobacter. The patient was very recently diagnosed with cancer and had a recent prolonged admission, where he had hyponatremia, severe [place] with tumor lysis syndrome, liver failure and hyperbilirubinemia, and received chemotherapy with Carboplatin + VP16 with Neulasta. With aggressive management, on last admission, his LFTs significantly improved other than his bilirubin, and his kidney function also dramatically improved, and upon this admission, was improved since his hospital discharge. Hyponatremia was multifactorial and including a component of SIADH and is being managed by Dr. Jones. The patient has been unable to urinate due to extreme scrotal edema and anasarca and states that he feels much better after catheter insertion. After a few liters of fluid in the ED, he was unable to maintain his blood pressure and was placed on Levophed, which he is currently still on upon evaluation in the morning. He is pancytopenic secondary to chemotherapy with white blood cell count of 0.1 and platelets of 12, which have trended up to 19. His hemoglobin is 7.2 on admission and is status post 1 unit PRBC with another along the way. REVIEW OF SYSTEMS: Ten-point review of systems negative except as per HPI. PAST MEDICAL HISTORY: Hypertension, small cell carcinoma of rectum. PAST SURGICAL HISTORY: MediPort. SOCIAL HISTORY: No significant alcohol or smoking, but will drink 1 to 2 beers per day. FAMILY HISTORY: Lung cancer in his mother. ALLERGIES: NO KNOWN MEDICATION ALLERGIES. CURRENT MEDICATIONS: Reviewed. PHYSICAL EXAMINATION: VITAL SIGNS: The patient is afebrile. Blood pressure ranging MAP in the 50s into the 60s, heart rate mild tachycardia, respirations 21 to 25, saturating 93% on room air. GENERAL APPEARANCE: The patient is sitting up in bed and appears acutely ill. HEENT: Normocephalic and atraumatic. No scleral icterus noted. RESPIRATIONS: Clear to auscultation bilaterally. CARDIAC: S1 and S2. Tachycardic. ABDOMEN: Largely distended with tenderness to palpation in the right upper and lower quadrants. EXTREMITIES: Diffuse anasarca. NEUROLOGIC: Cranial nerves 2 through 12 are grossly intact. Otherwise nonfocal. LABORATORY DATA: White blood cells 0.1, hemoglobin 7.2, platelets 19. Sodium 132, potassium 5.6, chloride 97, BUN 89, creatinine 2.34, uric acid 7.5, lactic acid 2.5. Troponin 0.510, cortisol 56.7. ASSESSMENT AND PLAN: Small cell carcinoma with liver metastasis, status post chemotherapy with profound pancytopenia, septic shock secondary to Enterobacter sepsis and acute kidney injury with diffuse anasarca. The patient received Neulasta after his chemotherapy, so does not require Neupogen at this time, and white blood cell count is at its meir and should improve in the next couple of days. We would recommend platelet transfusion for platelets if they remain less than 20 and transfuse blood cells to keep hemoglobin above 8.0. Recommend continuing antibiotics in light of ongoing septic shock and positive enterobacter in blood. Dr. Jones has been consulted to follow along for his kidney and metabolic abnormalities. The patient's cancer should respond well to chemotherapy if he can pull through his acute problems. However, at this time, his infection is his most vital problem. We will follow closely along with you. Job ID: [id number] [facility]
[2019-02-02] MEDS ORDERED: Propofol 1,000 MG/100 ML VIAL IV ONE (01:30)
[2019-02-02 01:58] LABS: Actual Bicarbonate (HCO3a) 18.8 mEq/L (22-28); Base Excess (BEa) -7.5 mEq/L (-2.0 to +3.0); CO2 Tension 41.6 mmHg (35.0-45.0); Calcium, Ionized 0.95 mmol/L (1.12-1.30); Carboxyhemoglobin (COHb) 2.7 gm% (0.0-3.0); Hemoglobin (Hb) 8.8 g/dL (14.0-18.0); O2 Tension (PaO2) 110.5 mmHg (80.0-100.0); Potassium - ABG Lab 6.34 mmol/L (3.70-5.30); pH, Arterial 7.27 (7.35-7.45)
[2019-02-02] MEDS ORDERED: Propofol BOLUS 1,000 MG/100 ML VIAL IV PRN (02:01)
[2019-02-02] MEDS ORDERED: Lorazepam 2 MG/ML VIAL SLOW IVP PRN (02:01)
[2019-02-02] MEDS ORDERED: Morphine 2 MG/ML SYRINGE SLOW IVP PRN (02:01)
[2019-02-02] MEDS ORDERED: Fentanyl BOLUS 250 ML IVPB PRN (02:01)
[2019-02-02] MEDS ORDERED: fentaNYL Citrate/PF 2,000 MCG in Sodium Chloride 0.9% 60 ML IV SCH (02:01)
[2019-02-02] MEDS ORDERED: DISCONTINUE PREVIOUS NARCOTIC PAIN MEDICATIONS AND BENZODIAZEPINES FS SCH (02:01)
[2019-02-02] MEDS: Norepinephrine 8 MG in Dextrose 5% in Water 242 ML IVPB PRN ×5 (02:02→22:54)
[2019-02-02 02:29] LABS: Puncture Site RRA
[2019-02-02] MEDS: Cefepime 2 GM in Sodium Chloride 0.9% 100 ML IVPB SCH (03:39)
[2019-02-02 06:50] LABS: INR-International Normal Ratio 1.8; Prothrombin Time 20.3 SEC (12.0-14.7)
[2019-02-02 06:56] LABS: Hemoglobin 8.2 g/dL (14.0-18.0); Mean Corpuscular HGB CONC 33.1 g/dL (32.0-36.0); Mean Corpuscular Hemoglobin 30.7 pg (27.0-31.0); Mean Corpuscular Volume 92.8 fL (78.0-98.0); Mean Platelet Volume 10.8 fL (7.4-10.4); Platelet Count 12 thou/uL (130-400); RBC Distribution Width 15.5 % (11.5-14.5); Red Blood Cell (RBC) Count 2.68 mill/uL (4.70-6.10); White Blood Cell (WBC) Count 0.2 thou/uL (4.8-10.8)
[2019-02-02 07:10] LABS: Phosphorus 7.8 mg/dL (2.3-4.7)
[2019-02-02 07:14] LABS: Vancomycin, Trough 28.1 ug/mL
[2019-02-02] MEDS: Propofol 1,000 MG/100 ML VIAL IV PRN ×4 (07:18→22:03)
[2019-02-02 07:25] LABS: ALT (SGPT) 36 U/L (8-55); AST (SGOT) 28 U/L (5-34); Albumin 3.3 g/dL (3.5-5.0); Alkaline Phosphatase 143 U/L (40-150); Anion Gap 21 mmol/L (10-20); BUN (Urea Nitrogen) 115 mg/dL (8.4-25.7); Bilirubin, Total 24.5 mg/dL (0.2-1.2); Calc. Creatinine Clearance 45 mL/min (70-130); Calcium 7.5 mg/dL (7.8-10.44); Carbon Dioxide 18 mmol/L (22-29); Chloride 98 mmol/L (98-107); Estimated GFR-MDRD 16; Glucose 109 mg/dL (70-105); Magnesium 2.8 mg/dL (1.6-2.6); Potassium 6.9 mmol/L (3.5-5.1); Protein, Total 5.3 g/dL (6.0-8.3); Sodium 130 mmol/L (136-145)
[2019-02-02 07:36] LABS: Actual Bicarbonate (HCO3a) 17.7 mEq/L (22-28); Base Excess (BEa) -9.4 mEq/L (-2.0 to +3.0); Calcium, Ionized 0.97 mmol/L (1.12-1.30); Carboxyhemoglobin (COHb) 2.1 gm% (0.0-3.0); Hemoglobin (Hb) 8.4 g/dL (14.0-18.0); O2 Tension (PaO2) 114.2 mmHg (80.0-100.0); Potassium - ABG Lab 6.86 mmol/L (3.70-5.30)
[2019-02-02 07:40] LABS: pH, Arterial 7.21 (7.35-7.45)
[2019-02-02 07:41] LABS: ALV-art Gradient 436.475 (0-20); CO2 Tension 44.3 mmHg (35.0-45.0); Puncture Site RR
[2019-02-02] MEDS ORDERED: Dextrose 5% in Water 1,000 ML IV SCH (07:45)
[2019-02-02] MEDS ORDERED: Calcium Gluconate 4.6 MEQ in Sodium Chloride 0.9% 100 ML IVPB SCH (07:56)
[2019-02-02] MEDS ORDERED: Dextrose 50% Abboject 50 ML SYRINGE SLOW IVP SCH (07:58)
[2019-02-02] MEDS ORDERED: Sodium Bicarbonate 150 MEQ in Dextrose 5% in Water 1,000 ML IV SCH (08:00)
[2019-02-02] MEDS ORDERED: Insulin Regular 300 UNITS/3 ML VIAL IVP SCH (08:00)
--- NOTE | 2019-02-02 08:08 | PRG ---
DATE OF SERVICE: 02/02/2019 TIME SPENT: 35 minutes critical care time. SUBJECTIVE: The patient decompensated last night. He had to be intubated. He is now on mechanical ventilation and sedated. Vasopressin has been added to the norepinephrine for blood pressure support. OBJECTIVE: VITAL SIGNS: His temperature is 97.3, pulse 108, blood pressure 94/55. Intake for the last 24 hours has been 5903, output , weight 316 pounds. NEUROLOGICAL: He is sedated on mechanical ventilation. HEENT: Remarkable for some perioral ulcers. NECK: No JVD. CARDIAC: S1 and S2. Slightly tachycardic with a 2/6 systolic murmur. LUNGS: Fairly clear anteriorly. ABDOMEN: Protuberant. SCROTUM: Extremely swollen. EXTREMITIES: Edematous in the lower extremities. LABORATORY DATA: White blood cell count 0.2, hemoglobin 8.2, hematocrit 24.9, and platelet count 12. INR is 1.8, PTT 20.3. PH of 7.23, pCO2 of 44, PO2 of 114 on SIMV rate 17, tidal volume 470, PEEP 7, pressure support 17, FiO2 of 85%. Sodium 130, potassium 6.9, chloride 98, CO2 of 18, BUN 115, creatinine 3.9, glucose 108, magnesium is 2.8, albumin 3.3. Vanc trough was 28.1. IMAGING STUDIES: Chest x-ray shows ET tube that is in good position. Bilateral atelectasis versus effusions. ASSESSMENT: 1. Septic shock secondary to enterobacter. 2. Small cell cancer of the rectum with metastasis. 3. Anuria. 4. Acute renal failure. 5. Hyperkalemia. 6. Pancytopenia secondary to chemotherapy. 7. Acute respiratory failure requiring mechanical ventilation. PLAN: 1. The patient is not weanable at this time. 2. He needs urgent hemodialysis. 3. He will need transfusion of platelets as dialysis catheter is put in by Nephrology or Surgery. 4. Go ahead and put him on bicarbonate drip. 5. Adjust mechanical ventilation settings for continue vasopressors. 6. Adjust his dose of antibiotics. I will stop the vancomycin since he is only growing gram-negatives. I have added Levaquin for additional gram-negative coverage. This patient's prognosis is poor. 7. Add for neutropenia. Job ID: [id number]
[2019-02-02 08:13] LABS: MDiff Complete? YES; Platelet Morphology Comment Appears Decreased; Polychromasia SLIGHT = 2-3 cells (100X) (0-2/hpf); Schistocytes SLIGHT = 2-5 cells (100X) (0-1/hpf)
[2019-02-02] MEDS ORDERED: Dextrose 50% Abboject 50 ML SYRINGE ONE ×2 (08:14→08:16)
[2019-02-02] MEDS ORDERED: Insulin Regular 300 UNITS/3 ML VIAL ONE (08:17)
--- NOTE | 2019-02-02 08:19 | PRG ---
DATE OF SERVICE: 02/02/2019 SUBJECTIVE: As patient's events of overnight events reviewed with nursing staff. The patient currently intubated, severe pancytopenia. Dr. Velasquez seen the patient overnight to discuss palliative care per nursing staff. OBJECTIVE: VITAL SIGNS: Temperature 97.3, blood pressure 94/55. Urine output 138 over 24 hours. ABDOMEN: Morbidly obese, protuberant. : Significant scrotal edema secondary to anasarca with some skin breakdown. Carpenter catheter in place demonstrating tea-colored urine. PERTINENT LABORATORY DATA: White count 0.2, hemoglobin 8.2, platelets 12. Creatinine 3.9, potassium 6.9, sodium 130. IMPRESSION AND PLAN: 1. Mr. Alfaro is a 53-year-old male with metastatic rectal cancer, presents for Enterobacter sepsis. 2. Scrotal edema secondary to anasarca. Scrotal ultrasound demonstrates edema consistent with anasarca. Continue present management. Prognosis guarded and poor. Job ID: [id number]
--- NOTE | 2019-02-02 08:35 | RAD ---
CHEST ONE VIEW: HISTORY: Respiratory insufficiency. FINDINGS: Lift support tubes in place with left-sided central line, NG tube, and endotracheal tube in place. B ilateral vascular congestion, progressive from prior study. IMPRESSION: Progressive bilateral vascular congestion. No evidence for other significant new process. Considera ble rotation to the right. Continued short-term followup. POS: [facility]
--- NOTE | 2019-02-02 09:07 | PRG ---
DATE OF SERVICE: 02/02/2019 SUBJECTIVE: A 53-year-old male with resolving acute renal failure, who was admitted due to worsening swelling and ill feeling. The patient was found to be in shock as well as with severe pancytopenia and was started on broad-spectrum antibiotics. Early this morning, the patient was intubated for worsening respiratory distress. He is now also on two pressors. Post intubation, the patient is bleeding from the mouth. OBJECTIVE: VITAL SIGNS: Temperature 97.3, pulse 108, blood pressure 97/55, and respiratory rate 14, and SpO2 of 95% on the ventilator. GENERAL: Sedated male, in no obvious distress. Icteric. HEENT: ET tube in place. Normocephalic and atraumatic. Blood is noted dripping from the corner of the mouth. CARDIOVASCULAR: Regular rhythm and rate, but tachycardic. Normal heart sounds one and two. RESPIRATORY: Ventilator transmitted breath sounds heard in all lung zones. GI: Obese, soft, and nondistended with normal bowel sounds. UROGENITAL: Scrotal swelling with some excoriation and some skin breakdown. EXTREMITIES: Cfnladiw-on-thalru bilateral leg edema. LAUNCHMAN: The patient is sedated. DIAGNOSTIC DATA: CBC this morning showed WBC count of 0.2, hemoglobin of 8.2, and platelet count of 12. Coagulation panel showed PT 20.3 and INR 1.8. Arterial blood gas this morning showed pH of 7.21, pCO2 of 44.3, and pO2 of 114.2. CMP today showed sodium 130, potassium 6.9, chloride 98, CO2 of 18, anion gap 21, BUN 115, creatinine 3.92, glucose 109, calcium 7.5, total bilirubin 24.5, AST 28, ALT 36, alkaline phosphatase 143, total protein 5.3, albumin 3.3, and globulin 2.0. Uric acid is 7.5, phosphorus is 7.8, and magnesium is 2.8. ASSESSMENT: 1. Hyperkalemia with potassium of 6.9. 2. Acute kidney injury superimposed on resolving acute renal failure. This most likely due to hemodynamic factors related to circulatory shock. 3. Worsening azotemia with BUN of 115. 4. Anasarca: This most likely due to liver metastasis with liver dysfunction and portal hypertension as well as venous and lymphatic drainage obstruction due to abdominal lymphadenopathy related to cancer. Worsening renal function with oliguria is contributory. 5. Shock: Both sepsis and hypovolemia. 6. Enterococcus bacteremia. 7. Hyperphosphatemia. 8. Severe pancytopenia with platelet of 12 and WBC count of 0.2. 9. Severe thrombocytopenia with bleeding after ET tube placement. 10. Hyponatremia: This is thought to be syndrome of inappropriate antidiuretic hormone secretion related to cancer and liver involvement. 11. Marked hyperbilirubinemia with bilirubin total of 24. DISCUSSION: The patient's overall prognosis is very poor. Hyperkalemia is due to worsening renal function which itself is due to worsening liver function and circulatory shock. The patient is currently bleeding after ET tube placement. Platelet is only 12. Even if we get a surgeon to put a temporary dialysis catheter at this point for us to dialyze the patient, I do not think that dialysis will change the patient's outlook. Meanwhile, we will give the patient 10 units of regular insulin as well as 25 g of dextrose. We will also start the patient on sodium bicarbonate infusion after a bolus of calcium gluconate. I did talk with his spouse over the phone to give an update on the patient's condition as well as difficulty surrounding renal replacement therapy. She will be coming back to the hospital for us to continue our discussion. I also recommended that the patient's spouse discussed the patient's condition with oncologist before making a decision whether to continue aggressive therapy. However, if the patient's spouse decides that we will provide dialytic treatment, I will then consult General Surgery for dialysis access and we will go ahead and dialyze the patient to help with volume management and electrolytes. Job ID: [id number]
[2019-02-02] MEDS: Sodium Chloride 0.9% 1,000 ML IV SCH (09:09)
[2019-02-02] MEDS: Pantoprazole 40 MG VIAL IVP SCH (09:57)
[2019-02-02 10:15] LABS: Albumin 3.3 g/dL (3.5-5.0); Anion Gap 24 mmol/L (10-20); BUN (Urea Nitrogen) 112 mg/dL (8.4-25.7); BUN/Creatinine Ratio 29.63; Calc. Creatinine Clearance 47 mL/min (70-130); Calcium 7.3 mg/dL (7.8-10.44); Carbon Dioxide 15 mmol/L (22-29); Chloride 96 mmol/L (98-107); Estimated GFR-MDRD 17; Glucose 105 mg/dL (70-105); Phosphorus 7.8 mg/dL (2.3-4.7); Sodium 128 mmol/L (136-145)
[2019-02-02 10:24] LABS: Potassium 6.8 mmol/L (3.5-5.1)
[2019-02-02 14:12] LABS: Hemoglobin 7.8 g/dL (14.0-18.0)
[2019-02-02 14:40] LABS: ALT (SGPT) 49 U/L (8-55); AST (SGOT) 78 U/L (5-34); Albumin 3.3 g/dL (3.5-5.0); Alkaline Phosphatase 123 U/L (40-150); Anion Gap 25 mmol/L (10-20); BUN (Urea Nitrogen) 124 mg/dL (8.4-25.7); Calc. Creatinine Clearance 43 mL/min (70-130); Calcium 7.6 mg/dL (7.8-10.44); Carbon Dioxide 16 mmol/L (22-29); Chloride 97 mmol/L (98-107); Estimated GFR-MDRD 15; Globulin 1.8 g/dL (2.4-3.5); Glucose 122 mg/dL (70-105); Potassium 6.7 mmol/L (3.5-5.1); Protein, Total 5.1 g/dL (6.0-8.3); Sodium 131 mmol/L (136-145)
[2019-02-02 14:45] LABS: Bilirubin, Total 25.3 mg/dL (0.2-1.2)
--- NOTE | 2019-02-02 14:59 | PDOC.MOPN ---
Interval History: Overnight patient required emergent intubation by Dr. Rock, which was traumatic due to low platelets with bleeding. His O2 sat dropped into 70s and so he had a bedside bronch that did not show any obstructions, then placed on bi -level with improvement in his O2 sats to 90s. He responds to commands. - Vital Signs Vital Signs: Vital Signs (12 hours) Temp Pulse Pulse Resp BP BP Pulse Ox 02/02/19 13:44 107 H 109/64 02/02/19 12:30 100.2 F H 105 H 25 H 102/60 88 L 02/02/19 11:41 104 H 82/54 L 02/02/19 11:19 99.8 F H 104 H 25 H 93/58 L 88 L 02/02/19 07:29 108 H 97/55 L 02/02/19 05:00 97.3 F L 02/02/19 04:00 97.7 F 96 02/02/19 03:00 97.8 F Weight Admit Weight 299 lb Weight 316 lb 12.8 oz Most Recent Monitor Data Heart Rate from ECG 105 NIBP 89/53 NIBP BP-Mean 65 Respiration from ECG 25 SpO2 88 - Physical Exam General: Other (intubated, sedated) HEENT: Other (ET tube in place) Lungs: Other (mechanical breath sounds) Cardiovascular: Normal S1, Normal S2, Other (tachy) Abdomen: Other (distended, nontender) Extremities: Other (anasarca) Neurological: Other (sedated, responds to stimulation) - Labs Result Diagrams: 02/03/19 04:05 02/03/19 04:05 Lab results: Laboratory Results - last 24 hr 02/02/19 14:02: Sodium 131 L, Potassium 6.7 H*, Chloride 97 L, Carbon Dioxide 16 L, Anion Gap 25 H, BUN 124 H, Creatinine 4.12 H, Estimated GFR (MDRD) 15, Glucose 122 H, Calcium 7.6 L, Total Bilirubin 25.3 H, AST 78 H, ALT 49, Alkaline Phosphatase 123, Serum Total Protein 5.1 L, Albumin 3.3 L, Globulin 1.8 L, Albumin/Globulin Ratio 1.8 02/02/19 14:01: Hgb 7.8 L, Hct 23.6 L 02/02/19 07:30: Specimen Type ARTERIAL, Puncture Site RR, Bicarbonate Actual 17.7 L, ABG pH 7.21 L*, ABG pCO2 44.3, ABG pO2 114.2 H, ABG O2 Sat Calc/[place] 98.2 H, ABG O2 Content 11.5 L, ABG Base Excess -9.4 L, ABG Hematocrit 25.0 L, ABG Hemoglobin 8.4 L, ABG Oxyhemoglobin 95.8, ABG Carboxyhemoglobin 2.1, ABG Methemoglobin 0.30, ABG Deoxyhemoglobin 1.8, Seferino Test POSITIVE, A-a O2 Gradient 436.475 H, Sodium 128 L, Potassium 6.86 H, Chloride 96 L, Ionized Calcium 0.97 L, Mode of Support SIMV, % Minute Volume 9.9, Mechanical Rate 17, Inspired O2 85, Tidal Volume 570, Pressure Support 17, PEEP or CPAP 7.0 02/02/19 06:26: Sodium 128 L, Potassium 6.8 H*, Chloride 96 L, Carbon Dioxide 15 L, Anion Gap 24 H, BUN 112 H, Creatinine 3.78 H, Estimated GFR (MDRD) 17, BUN /Creatinine Ratio 29.63, Glucose 105, Calcium 7.3 L, Phosphorus 7.8 H, Albumin 3.3 L 02/02/19 06:26: PT 20.3 H, INR 1.8 02/02/19 06:26: Phosphorus 7.8 H 02/02/19 06:26: WBC 0.2 L*, RBC 2.68 L, Hgb 8.2 L, Hct 24.9 L, MCV 92.8, MCH 30.7, MCHC 33.1, RDW 15.5 H, Plt Count 12 L*, MPV 10.8 H, Neutrophils % (Manual ) Not Reportable, Neutrophils # Not Reportable, Lymphocytes # Not Reportable, Plt Morphology Comment Appears Decreased L, Polychromasia SLIGHT = 2-3 cells, Schistocytes SLIGHT = 2-5 cells 02/02/19 06:26: Sodium 130 L, Potassium 6.9 H*, Chloride 98, Carbon Dioxide 18 L , Anion Gap 21 H, BUN 115 H, Creatinine 3.92 H, Estimated GFR (MDRD) 16, Glucose 109 H, Calcium 7.5 L, Magnesium 2.8 H, Total Bilirubin 24.5 H, AST 28, ALT 36, Alkaline Phosphatase 143, Serum Total Protein 5.3 L, Albumin 3.3 L, Globulin 2.0 L, Albumin/Globulin Ratio 1.7 02/02/19 06:26: Vancomycin Trough 28.1 02/02/19 01:50: Specimen Type ART, Puncture Site RRA, Bicarbonate Actual 18.8 L , ABG pH 7.27 L, ABG pCO2 41.6, ABG pO2 110.5 H, ABG O2 Sat Calc/[place] 98.2 H, ABG O2 Content 12.0 L, ABG Base Excess -7.5 L, ABG Hematocrit 26.0 L, ABG Hemoglobin 8.8 L, ABG Oxyhemoglobin 95.3, ABG Carboxyhemoglobin 2.7, ABG Methemoglobin 0.30, ABG Deoxyhemoglobin 1.7, Seferino Test POSITIVE, A-a O2 Gradient 479.200 H, Sodium 125 L, Potassium 6.34 H, Chloride 97 L, Ionized Calcium 0.95 L, Mode of Support SIMV, Mechanical Rate 17, Inspired O2 90, Tidal Volume 470, Pressure Support 17, PEEP or CPAP 7.0 02/02/19 00:10: Specimen Type art, Puncture Site RRA, Bicarbonate Actual 18.9 L , ABG pH 7.22 L*, ABG pCO2 47.2 H, ABG pO2 91.6, ABG O2 Sat Calc/[place] 95.5, ABG O2 Content 12.6 L, ABG Base Excess -8.4 L, ABG Hematocrit 28.0 L, ABG Hemoglobin 9.5 L, ABG Oxyhemoglobin 93.2 L, ABG Carboxyhemoglobin 2.1, ABG Methemoglobin 0.30, ABG Deoxyhemoglobin 4.4 H, Seferino Test POSITIVE, A-a O2 Gradient 205.900 H, Sodium 128 L, Potassium 6.23 H, Chloride 96 L, Ionized Calcium 0.99 L, Mode of Support VM, Inspired O2 50 01/31/19 22:25: Blood Type A POSITIVE, Antibody Screen POSITIVE H, Antibody Identification ANTIBODY-UNKNOWN SPECIFICITY, Crossmatch See Detail A/P - Problem (1) Shock, septic, Gram negative Current Visit: Yes Code(s): A41.50 - GRAM-NEGATIVE SEPSIS, UNSPECIFIED; R65.21 - SEVERE SEPSIS WITH SEPTIC SHOCK Status: Acute (2) Edema Current Visit: Yes Code(s): R60.9 - EDEMA, UNSPECIFIED Status: Acute (3) Lactic acidosis Current Visit: Yes Code(s): E87.2 - ACIDOSIS Status: Acute (4) Acute kidney failure Current Visit: No Status: Acute (5) Small cell carcinoma Current Visit: No Code(s): C80.1 - MALIGNANT (PRIMARY) NEOPLASM, UNSPECIFIED Status: Acute - Plan Plan: -- I had a long discussion with the family regarding very poor prognosis. He has an aggressive cancer with his liver >75% replaced my tumor leading to coagulopathy and worsening hyperbilirubinemia. Small Cell Carcinoma can respond tremendously to chemo but still requires 3-6 weeks to show response so it is too soon to know if it would work. He has severe ISRA[place], producing very little urine over the last 24 hours, with worsening electrolytes. ISRAEL is multifactorial from septic shock and likely partially hepatorenal. He has enterobacter septic shock requiring Levophed and Vasopressin in addition to MV. He has a very grim prognosis and the likelihood of recovery from his acute illness is quite low. Currently he is neurologically intact and comfortable. Intensive therapy was just started so I believe a couple more days of intensive supportive care is reasonable, though this would include HD. cont supportive care with vasopressors, antibiotics, IVF, sodium bicarbonate , albumin Dr. Hein consulted for line placement HD as per Nephro
[2019-02-02] MEDS: Vasopressin 40 UNIT, Admixture Fee 1 EACH in Sodium Chloride 0.9% 100 ML IV SCH ×2 (15:04→17:50)
--- NOTE | 2019-02-02 16:49 | OP ---
DATE OF PROCEDURE: 02/02/2019 PREOPERATIVE DIAGNOSES: Acute renal failure, metastatic colon cancer, respiratory failure, in need of dialysis access for hyperkalemia. POSTOPERATIVE DIAGNOSES: Acute renal failure, metastatic colon cancer, respiratory failure, in need of dialysis access for hyperkalemia. PROCEDURE PERFORMED: Right femoral vein Trialysis catheter. ANESTHESIA: 1% Xylocaine. DESCRIPTION OF PROCEDURE: The patient was at bedside. His right groin was clipped of hair, prepared with ChloraPrep and draped in routine fashion. Local anesthetic was infiltrated in the skin and subcutaneous tissue. Trocar catheter was cannulated in the femoral vein. J-wire threaded, trocar had a catheter removed. Skin was dilated sharply and small and medium size dilators placed with J-wire into this femoral vein. The distal port of the Trialysis catheter placed with J-wire into the femoral vein and secured with 3-0 nylon sutures and J-wire removed. Sterile dressings applied. Blood flushed with heparin saline solution. Job ID: [id number]
--- NOTE | 2019-02-02 17:05 | OP ---
DATE OF PROCEDURE: 02/02/2019 SERVICE: Pulmonary Medicine. PROCEDURE PERFORMED: Fiberoptic bronchoscopy with: 1. Visual airway inspection. 2. Bronchoalveolar lavage from the right lower lobe. PREPROCEDURE DIAGNOSIS: Acute hypoxic respiratory failure. POSTPROCEDURE DIAGNOSIS: Acute hypoxic respiratory failure. MEDICATIONS USED: Propofol 20 mg IV push off pump. DESCRIPTION OF PROCEDURE: A time-out was performed, identifying the correct procedure and the patient with name and date of . This procedure was done under emergent conditions, and so consent was implied. A diagnostic fiberoptic bronchoscope was introduced through the endotracheal tube. The bronchoscope was advanced into the trachea. One small mucus plug was pulled out of the distal endotracheal tube. This was by no means occlusive and was not likely causing any significant difficulties. It was purulent. Once this was liberated, there were no significant secretions distal to that. I had clear identification of the right upper lobe, right middle lobe, right lower lobe, left upper lobe, lingula, and left lower lobe. Anatomy was normal to the segmental level. A BAL was obtained from the right lower lobe. The bronchoscope was subsequently removed from the patient. FINDINGS: 1. Secretions were minimal, but thick. 2. No endobronchial disease was identified. SPECIMENS OBTAINED: BAL from the right lower lobe for microbiology. COMPLICATIONS: None. ESTIMATED BLOOD LOSS: None. FLUOROSCOPY TIME: None. DISPOSITION: The patient will recover in the ICU on mechanical ventilation. Job ID: [id number]
--- NOTE | 2019-02-02 17:17 | OP ---
DATE OF PROCEDURE: 02/02/2019 SERVICE: Pulmonary Medicine. PROCEDURE PERFORMED: Emergent endotracheal intubation. CONSENT: Procedure was implied secondary to emergent condition in clinical deterioration. MEDICATIONS: 1. Versed 2 mg IV push. 2. Etomidate 30 mg IV push. PREPROCEDURE DIAGNOSIS: Acute hypoxic respiratory failure. POSTPROCEDURE DIAGNOSIS: Acute hypoxic respiratory failure. DESCRIPTION OF PROCEDURE: Vital sign monitoring was accomplished by noninvasive hemodynamic monitoring, pulse oximetry, and telemetry. In the supine position, the patient was preoxygenated with [id number] ventilation and maintained with saturations of 92%. Following induction of anesthesia, a #3 GlideScope was inserted through the mouth offering clear identification of the posterior oropharynx and laryngeal structures with a grade 1 view. A 7.5-Bulgarian endotracheal tube was visualized passing through the vocal cords. Placement was confirmed by condensation in the endotracheal tube, colorimetric capnography, and bi-axillary chest auscultation. The endotracheal tube was secured at 23 cm, measured at the teeth. The patient was placed on mechanical ventilation with good return of volumes. Postprocedure x-ray demonstrated good location for the endotracheal tube within the trachea. ESTIMATED BLOOD LOSS: 5 mL. COMPLICATIONS: Posterior oropharyngeal bleeding, which was self-limited. Job ID: [id number]
[2019-02-02 19:34] LABS: HBSAg Index 0.16 S/CO (0-0.99); Hep B Surf Ag Non-Reactive S/CO (NonReactive)
--- NOTE | 2019-02-02 21:06 | PDOC.HOSPP ---
- Subjective Encounter Date: 02/02/19 Encounter Time: 16:30 Subjective: Events noted. Right femoral dialysis catheter placed, dialysis nurse at bedside. Less than 5ml urine today. Requiring 2 pressors. Worsening scrotal edema and skin sloughing of scrotal area noted. - Objective Vital Signs & Weight: Vital Signs (12 hours) Temp Pulse Pulse Resp BP BP Pulse Ox 02/02/19 18:39 108 H 101/72 02/02/19 18:00 25 H 02/02/19 16:39 103 H 94/57 L 02/02/19 16:00 98.9 F 25 H 02/02/19 14:00 25 H 02/02/19 13:44 107 H 109/64 02/02/19 12:30 100.2 F H 105 H 25 H 102/60 88 L 02/02/19 12:00 100.1 F H 25 H 02/02/19 11:41 104 H 82/54 L 02/02/19 11:19 99.8 F H 104 H 25 H 93/58 L 88 L 02/02/19 10:00 25 H Weight Admit Weight 299 lb Weight 316 lb 12.8 oz Most Recent Monitor Data Heart Rate from ECG 105 NIBP 79/58 NIBP BP-Mean 65 Respiration from ECG 25 SpO2 99 I&O: 02/01/19 02/02/19 02/03/19 06:59 06:59 06:59 Intake Total 1011 5903.4 2716 Output Total 185 238 0 Balance 826 5665.4 2716 Result Diagrams: 02/02/19 14:01 02/02/19 14:02 Hospitalist ROS - Medication Medications: Active Medications Generic Name Dose Route Start Last Admin Trade Name Freq PRN Reason Stop Dose Admin Albuterol/Ipratropium 3 ml 02/02/19 07:00 02/02/19 18:33 Duoneb NEB 3 ml [id number] DAYLIN Administration Hydrocortisone Sodium Succinate 50 mg 02/01/19 23:59 02/02/19 17:21 Solu-Cortef IVP 50 mg Q6HR DAYLIN Administration Norepinephrine Bitartrate 8 mg 250 mls @ 0 mls/hr 01/31/19 22:04 02/02/19 18: 20 / Dextrose/Water IVPB 250 mls INF PRN Administration Blood Pressure Vasopressin 40 unit/ 102 mls @ 0 mls/hr 02/01/19 21:45 02/02/19 17:50 Miscellaneous Medication 1 IV 102 mls each/ Sodium Chloride INF DAYLIN Administration Protocol As Directed Levofloxacin 750 mg/ Device 150 mls @ 100 mls/hr 02/02/19 07:45 02/02/19 09: 59 IVPB 150 mls Q2D DAYLIN Administration Sodium Bicarbonate 150 meq/ 1,150 mls @ 75 mls/hr 02/02/19 08:00 02/02/19 08: 35 Dextrose/Water IV 02/02/19 23:59 1,150 mls NOW DAYLIN Administration Morphine Sulfate 4 mg 02/01/19 07:50 02/01/19 21:27 Morphine SLOW IVP 4 mg Q4H PRN Administration Pain Morphine Sulfate 2 mg 02/02/19 02:01 02/02/19 13:21 Morphine SLOW IVP 03/04/19 02:01 2 mg Q1H PRN Administration BREAKTHROUGH PAIN/Agitation Pantoprazole Sodium 40 mg 02/01/19 09:00 02/02/19 09:57 Protonix IVP 40 mg DAILY DAYLIN Administration Propofol 1,000 mg 02/02/19 02:01 02/02/19 17:22 Diprivan IV 03/04/19 02:01 1,000 mg INF PRN Administration TO ACHIEVE GOAL RASS Protocol Sodium Chloride 10 ml 02/02/19 09:00 02/02/19 10:02 Flush - Normal Saline IVF 10 ml Q12HR DAYLIN Administration Tbo-Filgrastim 480 mcg 02/02/19 09:00 02/02/19 08:41 Granix SC 02/07/19 09:01 480 mcg DAILY DAYLIN Administration Trazodone HCl 50 mg 02/01/19 04:01 02/01/19 04:45 Desyrel PO 50 mg HS PRN Administration Insomnia - Exam General - other findings: intubated/sedated Eye - other findings: pupils reactive ENT - other findings: ETT Neck: supple Heart - other findings: tachycardic Respiratory - other findings: ant/lat coarse bs Gastrointestinal: soft, non-tender, non-distended Extremities: 2+ LE edema Extremeties - other findings: Profound/severe scrotal edema with skin breakdown Skin - other findings: as above Neurological - other findings: presently sedated; follows commands on sedation holidays Hosp A/P (1) Hyperkalemia Code(s): E87.5 - HYPERKALEMIA Status: Acute (2) Acute respiratory failure Code(s): J96.00 - ACUTE RESPIRATORY FAILURE, UNSP W HYPOXIA OR HYPERCAPNIA Status: Acute (3) Edema Code(s): R60.9 - EDEMA, UNSPECIFIED Status: Acute (4) Hypotension Status: Acute (5) Lactic acidosis Code(s): E87.2 - ACIDOSIS Status: Acute (6) Shock, septic, Gram negative Code(s): A41.50 - GRAM-NEGATIVE SEPSIS, UNSPECIFIED; R65.21 - SEVERE SEPSIS WITH SEPTIC SHOCK Status: Acute (7) Acute kidney failure Status: Acute (8) Small cell carcinoma Code(s): C80.1 - MALIGNANT (PRIMARY) NEOPLASM, UNSPECIFIED Status: Acute (9) Neutropenia Code(s): D70.9 - NEUTROPENIA, UNSPECIFIED Status: Acute (10) Thrombocytopenia Code(s): D69.6 - THROMBOCYTOPENIA, UNSPECIFIED Status: Acute - Plan ID - Sepsis secondary to GNR, enterobacter, with shock, multiorgan failure. On antimicrobial support Renal - HD underway Heme/Onc - small cell carcinoma; profound neutropenia noted. Pul - Acute respiratory failure with hypoxemia requiring intubation and mechanical support Per family preference patient full code at time of my visit.
[2019-02-02] MEDS ORDERED: Digoxin 0.5 MG/2 ML AMP SLOW IVP SCH (23:45)
[2019-02-03] MEDS: Cefepime 2 GM in Sodium Chloride 0.9% 100 ML IVPB SCH (04:04)
[2019-02-03] MEDS: Norepinephrine 8 MG in Dextrose 5% in Water 242 ML IVPB PRN ×2 (04:05→09:23)
[2019-02-03] MEDS: Propofol 1,000 MG/100 ML VIAL IV PRN ×7 (04:44→23:23)
[2019-02-03 04:48] LABS: Hemoglobin 8.2 g/dL (14.0-18.0); Mean Corpuscular HGB CONC 33.9 g/dL (32.0-36.0); Mean Corpuscular Hemoglobin 30.5 pg (27.0-31.0); Mean Corpuscular Volume 89.9 fL (78.0-98.0); Platelet Count 6 thou/uL (130-400); RBC Distribution Width 15.3 % (11.5-14.5); Red Blood Cell (RBC) Count 2.68 mill/uL (4.70-6.10); White Blood Cell (WBC) Count 0.2 thou/uL (4.8-10.8)
[2019-02-03 04:55] LABS: Phosphorus 4.5 mg/dL (2.3-4.7)
[2019-02-03 05:01] LABS: Anisocytosis SLIGHT = 6-15 cells (100X) (0-5/hpf); MDiff Complete? YES; Platelet Morphology Comment Appears Decreased
[2019-02-03 05:03] LABS: ALT (SGPT) 60 U/L (8-55); AST (SGOT) 60 U/L (5-34); Alkaline Phosphatase 111 U/L (40-150); Anion Gap 23 mmol/L (10-20); BUN (Urea Nitrogen) 109 mg/dL (8.4-25.7); Calc. Creatinine Clearance 43 mL/min (70-130); Calcium 7.8 mg/dL (7.8-10.44); Carbon Dioxide 21 mmol/L (22-29); Chloride 95 mmol/L (98-107); Estimated GFR-MDRD 15; Globulin 1.9 g/dL (2.4-3.5); Glucose 137 mg/dL (70-105); Potassium 5.9 mmol/L (3.5-5.1); Protein, Total 4.9 g/dL (6.0-8.3); Sodium 133 mmol/L (136-145)
[2019-02-03 05:05] LABS: Bilirubin, Total 25.7 mg/dL (0.2-1.2)
[2019-02-03] MEDS: Hydrocortisone Sod Succ/PF 100 mg/2 ml Vial IVP SCH ×4 (05:40→23:23)
[2019-02-03] MEDS: Vasopressin 40 UNIT, Admixture Fee 1 EACH in Sodium Chloride 0.9% 100 ML IV SCH ×2 (05:49→22:08)
[2019-02-03 07:19] LABS: Actual Bicarbonate (HCO3a) 19.4 mEq/L (22-28); Calcium, Ionized 0.95 mmol/L (1.12-1.30); Carboxyhemoglobin (COHb) 0.4 gm% (0.0-3.0); Hemoglobin (Hb) 8.5 g/dL (14.0-18.0); O2 Tension (PaO2) 91.8 mmHg (80.0-100.0); Potassium - ABG Lab 5.81 mmol/L (3.70-5.30); pH, Arterial 7.44 (7.35-7.45)
[2019-02-03 07:21] LABS: Puncture Site RR
--- NOTE | 2019-02-03 08:15 | PDOC.MOPN ---
Interval History: Date: 02/03/2019 Pt had a femoral line placed by Dr. Hein for HD. He remains on Bi-level, FiO2 of 45% currently, with PEEP 26 and 10. - Vital Signs Vital Signs: Vital Signs (12 hours) Temp Pulse Resp BP 02/03/19 07:39 109 H 100/59 L 02/03/19 06:00 25 H 02/03/19 04:00 98.9 F 25 H 02/03/19 02:21 122 H 100/55 L 02/03/19 02:00 25 H 02/03/19 00:08 123 H 97/69 02/03/19 00:00 98.3 F 25 H 02/02/19 23:46 118 H 02/02/19 22:10 102 H 110/62 02/02/19 22:00 25 H Weight Admit Weight 299 lb Weight 319 lb 6.4 oz Most Recent Monitor Data Heart Rate from ECG 123 NIBP 96/57 NIBP BP-Mean 70 Respiration from ECG 25 SpO2 99 - Physical Exam General: Other (intubated, sedated) HEENT: Other (ETT in place) Lungs: Other (MV sounds) Cardiovascular: Normal S1, Normal S2 Abdomen: Other (distended, nontender) Extremities: Other (anasarca) Neurological: Other (sedated, responds to stimulation) - Labs Result Diagrams: 02/04/19 04:40 02/04/19 04:40 Lab results: Laboratory Results - last 24 hr 02/03/19 07:10: Specimen Type ARTERIAL, Puncture Site RR, Bicarbonate Actual 19.4 L, ABG pH 7.44, ABG pCO2 29.0 L, ABG pO2 91.8, ABG O2 Sat Calc/[place] 96.8, ABG O2 Content 11.6 L, ABG Base Excess -4.0 L, ABG Hematocrit 25.0 L, ABG Hemoglobin 8.5 L, ABG Oxyhemoglobin 96.1, ABG Carboxyhemoglobin 0.4, ABG Methemoglobin 0.30, ABG Deoxyhemoglobin 3.2 H, Seferino Test POSITIVE, A-a O2 Gradient 264.100 H, Ionized Calcium 0.95 L, Mode of Support BI-LEVEL 26/10, % Minute Volume 17.4, Mechanical Rate 25, Inspired O2 55, Inspiratory Time 1.00, Pressure Support 17, Sodium 127 L, Potassium 5.81 H, Chloride 95 L 02/03/19 04:05: WBC 0.2 L*, RBC 2.68 L, Hgb 8.2 L, Hct 24.1 L, MCV 89.9, MCH 30.5, MCHC 33.9, RDW 15.3 H, Plt Count 6 L*, MPV 13.0 H, Neutrophils % (Manual) Not Reportable, Neutrophils # Not Reportable, Lymphocytes # Not Reportable, Plt Morphology Comment Appears Decreased L, Anisocytosis SLIGHT = 6-15 cells 02/03/19 04:05: Phosphorus 4.5 02/03/19 04:05: Sodium 133 L, Potassium 5.9 H, Chloride 95 L, Carbon Dioxide 21 L, Anion Gap 23 H, BUN 109 H, Creatinine 4.11 H, Estimated GFR (MDRD) 15, Glucose 137 H, Calcium 7.8, Total Bilirubin 25.7 H, AST 60 H, ALT 60 H, Alkaline Phosphatase 111, Serum Total Protein 4.9 L, Albumin 3.0 L, Globulin 1.9 L, Albumin/Globulin Ratio 1.6 02/02/19 18:15: Hep Bs Antigen Non-Reactive 02/02/19 14:02: Sodium 131 L, Potassium 6.7 H*, Chloride 97 L, Carbon Dioxide 16 L, Anion Gap 25 H, BUN 124 H, Creatinine 4.12 H, Estimated GFR (MDRD) 15, Glucose 122 H, Calcium 7.6 L, Total Bilirubin 25.3 H, AST 78 H, ALT 49, Alkaline Phosphatase 123, Serum Total Protein 5.1 L, Albumin 3.3 L, Globulin 1.8 L, Albumin/Globulin Ratio 1.8 02/02/19 14:01: Hgb 7.8 L, Hct 23.6 L 02/02/19 06:26: Sodium 128 L, Potassium 6.8 H*, Chloride 96 L, Carbon Dioxide 15 L, Anion Gap 24 H, BUN 112 H, Creatinine 3.78 H, Estimated GFR (MDRD) 17, BUN /Creatinine Ratio 29.63, Glucose 105, Calcium 7.3 L, Phosphorus 7.8 H, Albumin 3.3 L 02/02/19 06:26: Neutrophils % (Manual) Not Reportable, Neutrophils # Not Reportable, Lymphocytes # Not Reportable, Plt Morphology Comment Appears Decreased L, Polychromasia SLIGHT = 2-3 cells, Schistocytes SLIGHT = 2-5 cells 01/31/19 22:25: Blood Type A POSITIVE, Antibody Screen POSITIVE H, Antibody Identification ANTIBODY-UNKNOWN SPECIFICITY, Crossmatch See Detail A/P - Problem (1) Shock, septic, Gram negative Current Visit: Yes Code(s): A41.50 - GRAM-NEGATIVE SEPSIS, UNSPECIFIED; R65.21 - SEVERE SEPSIS WITH SEPTIC SHOCK Status: Acute (2) Edema Current Visit: Yes Code(s): R60.9 - EDEMA, UNSPECIFIED Status: Acute (3) Lactic acidosis Current Visit: Yes Code(s): E87.2 - ACIDOSIS Status: Acute (4) Acute kidney failure Current Visit: No Status: Acute (5) Small cell carcinoma Current Visit: No Code(s): C80.1 - MALIGNANT (PRIMARY) NEOPLASM, UNSPECIFIED Status: Acute - Plan Plan: cont supportive care with vasopressors, antibiotics, IVF, sodium bicarbonate , albumin HD as per Nephro s/p Neulasta - await count recovery ordered ABO-matched platelets from [place]
--- NOTE | 2019-02-03 08:31 | RAD ---
CHEST 1 VIEW: HISTORY: Pneumonia. COMPARISON: Radiograph of prior day. FINDINGS: There is lateral volume loss of both lower lobes with atelectatic changes. Small effusions. Endotra cheal tube tip below the clavicles. Central venous catheter tip at the inferior SVC. No pneumothorax. Heart size is mildly enlarged. IMPRESSION: Similar examination of the chest. POS: CET
--- NOTE | 2019-02-03 08:34 | PRG ---
DATE OF SERVICE: 02/03/2019 TIME SPENT: 35 minutes critical time. SUBJECTIVE: The patient remains intubated on mechanical ventilation. He did tolerate some dialysis yesterday. He is sedated and on multiple vasopressors. OBJECTIVE: VITAL SIGNS: On exam, temperature 98.9, pulse 123 in atrial fibrillation, and blood pressure 96/57. He is currently on norepinephrine 25 mcg/minute and vasopressin 0.04 units/minute. His intake for the last 24 hours has been 4186 mL and output 112 mL plus 1.5 L removed by dialysis. HEENT: Remarkable for icteric sclerae. ET tube in place. NECK: No adenopathy or JVD. LUNGS: Coarse breath sounds. CARDIAC: S1, S2. Irregularly irregular. ABDOMEN: Distended. Bowel sounds diminished. EXTREMITIES: Edematous and jaundiced. LABORATORY DATA: Sodium 133, potassium 5.9, chloride 95, CO2 21, BUN 109, creatinine 4.1, glucose 137, total bilirubin is 25.7, AST 60, ALT 60, albumin 3.0. PH of 7.44, pCO2 of 29, PO2 91 on bilevel 26/10 with a FiO2 of 55%. White count 0.2, hemoglobin 8.2, hematocrit 24.1, and platelet count 6. DIAGNOSTIC STUDIES: Chest x-ray shows no acute changes. ASSESSMENT: 1. Multiple organ failure including liver failure, renal failure, and respiratory failure. 2. 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 3. Severe scrotal swelling. 4. Hyperkalemia. 5. Pancytopenia with critically low platelets. PLAN: 1. Continue hemodialysis. 2. Decrease FiO2. 3. Continue empiric antibiotics. It looks like the organism is sensitive to his current antibiotics. 4. Transfuse platelets. 5. Amiodarone for atrial fibrillation. 6. Prognosis is extremely poor for functional recovery. Job ID: [id number]
[2019-02-03] MEDS: Amiodarone 450 MG in Dextrose 5% in Water 250 ML IVPB SCH ×2 (08:56→14:06)
[2019-02-03] MEDS: Pantoprazole 40 MG VIAL IVP SCH (09:09)
[2019-02-03 09:17] LABS: INR-International Normal Ratio 1.8; Prothrombin Time 21.2 SEC (12.0-14.7)
[2019-02-03 09:18] LABS: PTT 39.7 SEC (22.9-36.1)
--- NOTE | 2019-02-03 09:57 | PRG ---
DATE OF SERVICE: 02/03/2019 SUBJECTIVE: The patient intubated. T-max of 100, blood pressure 90/50 Events over the last night reviewed. patient has a hemodialysis catheter due to significant decrease in urine output. Physical exam demonstrates significant scrotal edema as previous with skin breakdown. Carpenter catheter demonstrating tea-colored urine. LABORATORY DATA: White count 0.2, hemoglobin 8, and platelets 6. Urine culture negative. Creatinine 4.1. IMPRESSION AND PLAN: 1. Mr. Alfaro is a 53-year-old male with metastatic rectal cancer, status post chemo with pancytopenia. 2. Enterobacter urosepsis. 3. Scrotal edema due to anasarca. Scrotal ultrasound demonstrating scrotal edema. Conservative observation is advised. Job ID: [id number] [facility]
[2019-02-03] MEDS ORDERED: NOREPINEPHRINE IVPB PRN (14:31)
[2019-02-03] MEDS ORDERED: DEXTROSE 5% IVPB PRN (14:31)
[2019-02-03] MEDS ORDERED: WATER IVPB PRN (14:31)
--- NOTE | 2019-02-03 17:37 | EKG ---
Test Reason : STAT Blood Pressure : / mmHG Vent. Rate : 120 BPM Atrial Rate : 127 BPM P-R Int : 000 ms QRS Dur : 104 ms QT Int : 308 ms P-R-T Axes : 000 062 049 degrees QTc Int : 435 ms Atrial fibrillation with rapid ventricular response Low voltage QRS Nonspecific T wave abnormality Abnormal ECG Confirmed by NOEL BARRETT ([id number]) on 02/03/2019 5:37:03 PM Referred By: JANI Confirmed By:NOEL BARRETT
--- NOTE | 2019-02-03 17:38 | PRG ---
DATE OF SERVICE: 02/03/2019 SERVICE: Nephrology. SUBJECTIVE: A 53-year-old male patient with recent diagnosis of metastatic colon cancer, being followed up for acute renal failure. The patient with recovering acute kidney injury developed acute worsening of renal failure, thought to be ATN related to circulatory shock. The patient also had severe pancytopenia with severe anasarca. Developed worsening shortness of breath and was intubated. Reportedly flipped into atrial fibrillation last night and was started on amiodarone infusion. Started on hemodialysis yesterday, February 02, 2019 for volume overload and hyperkalemia. Still sedated and mechanically ventilated. OBJECTIVE: VITAL SIGNS: Temperature 98.2, pulse 117, respiratory rate 26, SpO2 of 99% on ventilator, blood pressure is 91/59. GENERAL: Acutely ill-looking male, icteric. HEENT: ET tube in place, connected to mechanical ventilator. CARDIOVASCULAR: Irregular rhythm and rate. Tachycardic with normal heart sounds 1 and 2. RESPIRATORY: Ventilator transmitted breath sounds heard in all lung zones. GI: Obese, nondistended with hypoactive bowel sounds. UROGENITAL: Marked scrotal swelling with some excoriation and some skin erosion. EXTREMITIES: [id number] bilateral leg edema noted. SKIN: Scattered petechial rash noticed on the neck and upper chest. MICA SPREADER: The patient is sedated and unresponsive. DIAGNOSTIC DATA: CBC today showed a WBC count of 0.2, hemoglobin of 8.2, platelet of 6. Coagulation panel showed PT 21.2, INR 1.8, PTT 39.7. Arterial blood gas today showed pH of 7.44, pCO2 of 29.0, pO2 of 91. CMP showed a sodium of 133, potassium 5.9, chloride 95, CO2 of 21, anion gap 23, BUN 109, creatinine 4.11, glucose 137, calcium 7.8, total bilirubin 25.7, AST 60, ALT 60, alkaline phosphatase 111, total protein 4.9, albumin 3.0, globulin 1.9, phosphorus is 4.5. Chest x-ray showed bilateral volume loss of both lower lobes with atelectatic changes. Small effusion also is noted. Endotracheal tube as well as central venous catheter noted. No pneumothorax appreciated. ASSESSMENT: 1. Acute renal failure: Most likely due to acute tubular necrosis, superimposed on recovering acute kidney injury from hemodynamic factors. Creatinine and BUN continued to trend up. The patient was initiated on hemodialysis on February 02, 2019. 2. Hyperkalemia: Improved with hemodialysis. 3. Hyperphosphatemia. 4. Worsening azotemia. 5. Anasarca. 6. Circulatory-septic shock due to Enterobacter bacteremia. 7. Severe pancytopenia. 8. Severe thrombocytopenia with bleeding and petechial rash. 9. Hyponatremia: Due to syndrome of inappropriate antidiuretic hormone secretion related to liver dysfunction as well as to small-cell cancer of the colon. 10. Marked hyperbilirubinemia with a bilirubin of 25. 11. Metastatic colon cancer. PLAN: 1. We will dialyze the patient today using SLED technique for 6 hours with UF as tolerated. Supportive care and other treatment as per Pulmonary and Critical Care. Care plan was discussed with the patient, the patient's spouse and children, and they verbalized understanding. 2. Coagulopathy and pancytopenia treatment as per Hematology and Oncology. Job ID: [id number]
--- NOTE | 2019-02-03 17:52 | PDOC.HOSPP ---
- Subjective Encounter Date: 02/03/19 Encounter Time: 15:35 Subjective: Atrial fib overnight, now on amiodarone infusion. Presently on HD via SLED technique; remains on two pressors. Drips requested double strength via pharmacy. Moves all extremities during sedation vacation. - Objective Vital Signs & Weight: Vital Signs (12 hours) Temp Pulse Resp BP 02/03/19 17:00 98.4 F 02/03/19 16:00 98.7 F 25 H 02/03/19 15:35 103 H 97/52 L 02/03/19 13:38 112 H 93/53 L 02/03/19 12:00 99.7 F H 02/03/19 10:16 127 H 97/59 L 02/03/19 08:00 25 H 02/03/19 07:39 109 H 100/59 L 02/03/19 07:00 98.2 F 02/03/19 06:00 25 H Weight Admit Weight 299 lb Weight 319 lb 6.4 oz Most Recent Monitor Data Heart Rate from ECG 102 NIBP 98/57 NIBP BP-Mean 70 Respiration from ECG 36 SpO2 100 I&O: 02/02/19 02/03/19 02/04/19 06:59 06:59 06:59 Intake Total 5903.4 4186.3 1024 Output Total 238 562 0 Balance 5665.4 3624.3 1024 Result Diagrams: 02/03/19 04:05 02/03/19 04:05 Hospitalist ROS - Medication Medications: Active Medications Generic Name Dose Route Start Last Admin Trade Name Freq PRN Reason Stop Dose Admin Albuterol/Ipratropium 3 ml 02/02/19 07:00 02/03/19 13:38 Duoneb NEB 3 ml [id number] DAYLIN Administration Hydrocortisone Sodium Succinate 50 mg 02/01/19 23:59 02/03/19 11:36 Solu-Cortef IVP 50 mg Q6HR DAYLIN Administration Vasopressin 40 unit/ 102 mls @ 0 mls/hr 02/01/19 21:45 02/03/19 05:49 Miscellaneous Medication 1 IV 102 mls each/ Sodium Chloride INF DAYLIN Administration Protocol As Directed Levofloxacin 750 mg/ Device 150 mls @ 100 mls/hr 02/02/19 07:45 02/02/19 09: 59 IVPB 150 mls Q2D DAYLIN Administration Cefepime HCl 2 gm/ Sodium 100 mls @ 200 mls/hr 02/03/19 04:00 02/03/19 04:04 Chloride IVPB 100 mls 0400 DAYLIN Administration Amiodarone HCl 450 mg/ 259 mls @ 0 mls/hr 02/03/19 07:45 02/03/19 14:06 Dextrose/Water IVPB 259 mls INF DAYLIN Administration Protocol Per Protocol Norepinephrine Bitartrate 16 258 mls @ 0 mls/hr 02/03/19 14:31 02/03/19 15:26 mg/ Dextrose/Water IVPB 258 mls INF PRN Administration TO MAINTAIN MAP > 65 Protocol As Directed Morphine Sulfate 4 mg 02/01/19 07:50 02/01/19 21:27 Morphine SLOW IVP 4 mg Q4H PRN Administration Pain Morphine Sulfate 2 mg 02/02/19 02:01 02/02/19 13:21 Morphine SLOW IVP 03/04/19 02:01 2 mg Q1H PRN Administration BREAKTHROUGH PAIN/Agitation Pantoprazole Sodium 40 mg 02/01/19 09:00 02/03/19 09:09 Protonix IVP 40 mg DAILY DAYLIN Administration Propofol 1,000 mg 02/02/19 02:01 02/03/19 17:03 Diprivan IV 03/04/19 02:01 1,000 mg INF PRN Administration TO ACHIEVE GOAL RASS Protocol Sodium Chloride 10 ml 02/02/19 09:00 02/03/19 09:09 Flush - Normal Saline IVF 10 ml Q12HR DAYLIN Administration Tbo-Filgrastim 480 mcg 02/02/19 09:00 02/03/19 09:21 Granix SC 02/07/19 09:01 480 mcg DAILY DAYLIN Administration - Exam General - other findings: Intubated/sedated Eye: anicteric sclera Heart: irregular Heart - other findings: tachycardic Respiratory - other findings: Basilar rales Gastrointestinal: soft, non-tender Extremeties - other findings: Profound/severe scrotal edema with skin breakdown Skin - other findings: purpuric rash anterior chest Neurological - other findings: Moves all extremities during sedation vacation Psychiatric - other findings: intubated/sedated Hosp A/P (1) Hyperkalemia Code(s): E87.5 - HYPERKALEMIA Status: Acute (2) Acute respiratory failure Code(s): J96.00 - ACUTE RESPIRATORY FAILURE, UNSP W HYPOXIA OR HYPERCAPNIA Status: Acute (3) Edema Code(s): R60.9 - EDEMA, UNSPECIFIED Status: Acute (4) Hypotension Status: Acute (5) Lactic acidosis Code(s): E87.2 - ACIDOSIS Status: Acute (6) Shock, septic, Gram negative Code(s): A41.50 - GRAM-NEGATIVE SEPSIS, UNSPECIFIED; R65.21 - SEVERE SEPSIS WITH SEPTIC SHOCK Status: Acute (7) Acute kidney failure Status: Acute (8) Small cell carcinoma Code(s): C80.1 - MALIGNANT (PRIMARY) NEOPLASM, UNSPECIFIED Status: Acute (9) Neutropenia Code(s): D70.9 - NEUTROPENIA, UNSPECIFIED Status: Acute (10) Thrombocytopenia Code(s): D69.6 - THROMBOCYTOPENIA, UNSPECIFIED Status: Acute (11) PAF (paroxysmal atrial fibrillation) Code(s): I48.0 - PAROXYSMAL ATRIAL FIBRILLATION Status: Acute - Plan ID - Sepsis secondary to GNR, enterobacter, with shock, multiorgan failure. On antimicrobial support/pressor support Renal - HD underway Heme/Onc - small cell carcinoma; profound neutropenia and thrombocytopenia noted , platelet transfusion ordered/pending. Pulm - Acute respiratory failure with hypoxemia requiring intubation and mechanical support Cards - amiodarone gtt secondary to a fib Spoke to wound care, appreciate Urology follow up and care. Full code, prognosis grim.
[2019-02-04] MEDS: Propofol 1,000 MG/100 ML VIAL IV PRN ×7 (02:27→23:03)
[2019-02-04] MEDS: Amiodarone 450 MG in Dextrose 5% in Water 250 ML IVPB SCH (03:10)
[2019-02-04] MEDS: Cefepime 2 GM in Sodium Chloride 0.9% 100 ML IVPB SCH (04:29)
[2019-02-04 05:17] LABS: Hemoglobin 8.7 g/dL (14.0-18.0); Mean Corpuscular HGB CONC 34.3 g/dL (32.0-36.0); Mean Corpuscular Hemoglobin 30.7 pg (27.0-31.0); Mean Corpuscular Volume 89.6 fL (78.0-98.0); Mean Platelet Volume 12.3 fL (7.4-10.4); Platelet Count 8 thou/uL (130-400); RBC Distribution Width 15.5 % (11.5-14.5); Red Blood Cell (RBC) Count 2.82 mill/uL (4.70-6.10); White Blood Cell (WBC) Count 0.6 thou/uL (4.8-10.8)
[2019-02-04 05:33] LABS: Phosphorus 3.9 mg/dL (2.3-4.7)
[2019-02-04] MEDS: Hydrocortisone Sod Succ/PF 100 mg/2 ml Vial IVP SCH ×4 (05:33→23:40)
[2019-02-04 05:34] LABS: ALT (SGPT) 77 U/L (8-55); AST (SGOT) 77 U/L (5-34); Albumin 2.9 g/dL (3.5-5.0); Alkaline Phosphatase 102 U/L (40-150); Anion Gap 22 mmol/L (10-20); BUN (Urea Nitrogen) 87 mg/dL (8.4-25.7); Calc. Creatinine Clearance 43 mL/min (70-130); Calcium 8.2 mg/dL (7.8-10.44); Carbon Dioxide 21 mmol/L (22-29); Chloride 96 mmol/L (98-107); Estimated GFR-MDRD 15; Glucose 127 mg/dL (70-105); Potassium 5.3 mmol/L (3.5-5.1); Protein, Total 4.9 g/dL (6.0-8.3); Sodium 134 mmol/L (136-145)
[2019-02-04 05:36] LABS: Hypochromia SLIGHT = 6-15 cells (100X) (0-5/hpf); Lymphocytes 40 % (21-51); MDiff Complete? YES; Monocytes 20 % (0-10); Neutrophil 40 % (42-75); Platelet Morphology Comment Appears Decreased; Target Cells SLIGHT = 2-5 cells (100X) (0-1/hpf)
[2019-02-04 05:44] LABS: Bilirubin, Total 26.4 mg/dL (0.2-1.2)
[2019-02-04 07:22] LABS: Actual Bicarbonate (HCO3a) 20.1 mEq/L (22-28); Base Excess (BEa) -3.4 mEq/L (-2.0 to +3.0); CO2 Tension 30.2 mmHg (35.0-45.0); Calcium, Ionized 0.99 mmol/L (1.12-1.30); Carboxyhemoglobin (COHb) 0.6 gm% (0.0-3.0); Hemoglobin (Hb) 8.9 g/dL (14.0-18.0); O2 Tension (PaO2) 102.7 mmHg (80.0-100.0); Potassium - ABG Lab 5.18 mmol/L (3.70-5.30); pH, Arterial 7.44 (7.35-7.45)
[2019-02-04 07:57] LABS: Puncture Site L.R.
--- NOTE | 2019-02-04 08:34 | PRG ---
DATE OF SERVICE: 02/04/2019 SUBJECTIVE: The patient is currently intubated. OBJECTIVE: VITAL SIGNS: T-max of 100.2, blood pressure 108/51. ABDOMEN: Soft, protuberant. GENITOURINARY: Carpenter catheter in place with scant urine output. Significant scrotal penile edema consistent with anasarca, some of the areas of skin is dusky, weepy. As previous, consistent with anasarca. PERTINENT LABORATORY DATA: Urine culture negative. White count is 0.6, hemoglobin 8.7, platelet is 8. BUN 87, creatinine 4.1. EUSEBIO: Edema of the scrotal skin no other pathology IMPRESSION AND PLAN: Mr. Judd is a 53-year-old male with metastatic rectal cancer. Urologic consultation obtained due to scrotal edema, secondary to anasarca. No surgical intervention is warranted. Conservative measure with scrotal elevation, continue Carpenter catheter for strict I's and O's. has profound pancytopenia, neutropenia, on contact isolation. He is currently full code, prognosis is grim. Per nursing staff, family will meet with appropriate providers for final disposition. No further recommendations at this time. Dr. Reina will cover me over the weekend. Job ID: [id number] [facility]
[2019-02-04 08:36] LABS: Ref Lab Test Ordered PLATELET AB PROFILE; Reference Lab Name LABCORP
--- NOTE | 2019-02-04 08:55 | PRG ---
DATE OF SERVICE: 02/04/2019 A 35 minutes of critical care time. SUBJECTIVE: The patient remains intubated on mechanical ventilation. He is requiring multiple vasopressors including vasopressin and norepinephrine at the same rates he was on yesterday. OBJECTIVE: VITAL SIGNS: Temperature is 98.3, pulse 102, blood pressure 108/51, and O2 saturation 99%. His current norepinephrine rate is 25 mcg/minute and vasopressin is running at 0.04 units/minute. His total intake for the day yesterday was 3106 mL and output 110 mL by urine and 7.1 L out by dialysis. His weight is 316 pounds. HEENT: Remarkable for bilateral conjunctival hemorrhages. He has hemorrhages around his oral mucosa. NECK: No adenopathy or JVD. CHEST: He has petechiae with hemorrhage. CARDIOVASCULAR: S1 and S2. Regular. LUNGS: Clear anteriorly. ABDOMEN: Soft and slightly distended. Scrotum, very swollen and erythematous. EXTREMITIES: Edematous throughout. LABORATORY DATA: Sodium 143, potassium 5.3, chloride 96, CO2 of 21, BUN 87, creatinine 4.1, glucose 127, total bilirubin 26.4, AST 77, ALT 77, and albumin 2.9. A pH of 7.44, pCO2 of 30, and pO2 of 102, that is on bilevel rate 26/10, rate 25, and FiO2 of 45%. White blood cell count 0.6, hemoglobin 8.7, hematocrit 25.3, and platelet count 8000. Chest x-ray shows no discernible change. ASSESSMENT: 1. Septic shock secondary to enterobacter. 2. Multiple organ failure including liver failure, renal failure, respiratory failure, and bone marrow failure. 3. 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 4. Severe scrotal swelling. 5. Hyperkalemia that has improved. 6. Continue critically low platelets, which have not improved with transfusion. PLAN: 1. Continue hemodialysis. 2. Continue respiratory care with mechanical ventilation. I have changed his ventilator settings. 3. Continue antibiotics. 4. Continue amiodarone for paroxysmal atrial fibrillation. 5. We will discuss with family. Prognosis appears to be poor. Job ID: [id number]
[2019-02-04] MEDS: Pantoprazole 40 MG VIAL IVP SCH (09:28)
--- NOTE | 2019-02-04 09:54 | RAD ---
CHEST 1 VIEW: Date: 02/04/19 INDICATION: History of pneumonia. COMPARISON: Prior exam dated 02/03/19. IMPRESSION: Patient remains intubated with left IJ central venous catheter placement and gastric catheter placeme nt. Bibasilar opacities, right greater than left, persist. No pneumothorax is evident. POS: OFF
--- NOTE | 2019-02-04 11:51 | PDOC.HOSPP ---
- Subjective Encounter Date: 02/04/19 Subjective: intubated and sedated - Objective Vital Signs & Weight: Vital Signs (12 hours) Temp Pulse Resp BP Pulse Ox 02/04/19 10:54 99 86/42 L 02/04/19 10:00 33 H 02/04/19 08:00 25 H 02/04/19 07:00 98.3 F 02/04/19 06:45 101 H 106/48 L 02/04/19 06:44 103 H 26 H 100 02/04/19 06:00 25 H 02/04/19 04:00 98.5 F 25 H 02/04/19 02:53 102 H 02/04/19 02:00 25 H 02/04/19 00:00 98.9 F 25 H Weight Admit Weight 299 lb Weight 316 lb 12.868 oz Most Recent Monitor Data Heart Rate from ECG 99 NIBP 121/62 NIBP BP-Mean 81 Respiration from ECG 34 SpO2 97 I&O: 02/03/19 02/04/19 02/05/19 06:59 06:59 06:59 Intake Total 4186.3 3106.4 Output Total 562 110 Balance 3624.3 2996.4 Result Diagrams: 02/04/19 04:40 02/04/19 04:40 Hospitalist ROS - Medication Medications: Active Medications Generic Name Dose Route Start Last Admin Trade Name Freq PRN Reason Stop Dose Admin Albuterol/Ipratropium 3 ml 02/02/19 07:00 02/04/19 06:44 Duoneb NEB 3 ml [id number] DAYLIN Administration Hydrocortisone Sodium Succinate 50 mg 02/01/19 23:59 02/04/19 05:33 Solu-Cortef IVP 50 mg Q6HR DAYLIN Administration Vasopressin 40 unit/ 102 mls @ 0 mls/hr 02/01/19 21:45 02/03/19 22:08 Miscellaneous Medication 1 IV 102 mls each/ Sodium Chloride INF DAYLIN Administration Protocol As Directed Levofloxacin 750 mg/ Device 150 mls @ 100 mls/hr 02/02/19 07:45 02/04/19 09: 28 IVPB 150 mls Q2D DAYLIN Administration Cefepime HCl 2 gm/ Sodium 100 mls @ 200 mls/hr 02/03/19 04:00 02/04/19 04:29 Chloride IVPB 100 mls 0400 DAYLIN Administration Amiodarone HCl 450 mg/ 259 mls @ 0 mls/hr 02/03/19 07:45 02/04/19 03:10 Dextrose/Water IVPB 259 mls INF DAYLIN Administration Protocol Per Protocol Morphine Sulfate 4 mg 02/01/19 07:50 02/01/19 21:27 Morphine SLOW IVP 4 mg Q4H PRN Administration Pain Morphine Sulfate 2 mg 02/02/19 02:01 02/02/19 13:21 Morphine SLOW IVP 03/04/19 02:01 2 mg Q1H PRN Administration BREAKTHROUGH PAIN/Agitation Pantoprazole Sodium 40 mg 02/01/19 09:00 02/04/19 09:28 Protonix IVP 40 mg DAILY DAYLIN Administration Propofol 1,000 mg 02/02/19 02:01 02/04/19 09:02 Diprivan IV 03/04/19 02:01 1,000 mg INF PRN Administration TO ACHIEVE GOAL RASS Protocol Sodium Chloride 10 ml 02/02/19 09:00 02/04/19 09:28 Flush - Normal Saline IVF 10 ml Q12HR DAYLIN Administration Tbo-Filgrastim 480 mcg 02/02/19 09:00 02/04/19 09:32 Granix SC 02/07/19 09:01 480 mcg DAILY DAYLIN Administration - Exam Eye: PERRL, anicteric sclera ENT: normocephalic atraumatic, no oropharyngeal lesions, moist mucosa Neck: supple, symmetric, no JVD, no thyromegaly, no lymphadenopathy, no carotid bruit Heart: RRR, no murmur, no gallops, no rubs, normal peripheral pulses Respiratory: wheezes Gastrointestinal: non-tender, distended Extremities: 2+ LE edema Hosp A/P (1) Acute respiratory failure Code(s): J96.00 - ACUTE RESPIRATORY FAILURE, UNSP W HYPOXIA OR HYPERCAPNIA Status: Acute (2) Edema Code(s): R60.9 - EDEMA, UNSPECIFIED Status: Acute (3) Hyperkalemia Code(s): E87.5 - HYPERKALEMIA Status: Acute (4) Hypotension Status: Acute (5) Neutropenia Code(s): D70.9 - NEUTROPENIA, UNSPECIFIED Status: Acute (6) PAF (paroxysmal atrial fibrillation) Code(s): I48.0 - PAROXYSMAL ATRIAL FIBRILLATION Status: Acute (7) Shock, septic, Gram negative Code(s): A41.50 - GRAM-NEGATIVE SEPSIS, UNSPECIFIED; R65.21 - SEVERE SEPSIS WITH SEPTIC SHOCK Status: Acute (8) Colon cancer Code(s): C18.9 - MALIGNANT NEOPLASM OF COLON, UNSPECIFIED Status: Chronic - Plan ID--severe sepsis due to enterobacter--continue with ATB. Scrotal and generalized swelling Renal---Hyperkalemia--on HD Cardiac--PAF--on Amio, NSTEMI type 2 hypotension on pressors. Pulmonary--Acute respiratory failure--intubated prognosis is grim---Palliative care is consulted.
[2019-02-04] MEDS: Vasopressin 40 UNIT, Admixture Fee 1 EACH in Sodium Chloride 0.9% 100 ML IV SCH (11:58)
[2019-02-04] MEDS: Norepinephrine 16 MG in Dextrose 5% in Water 234 ML IVPB PRN ×2 (12:29→22:11)
[2019-02-04] MEDS ORDERED: Scopolamine 1.5 mg/72 hour Patch TD SCH (13:00)
--- NOTE | 2019-02-04 15:28 | PDOC.MOPN ---
Interval History: remains intubated. - Vital Signs Vital Signs: Vital Signs (12 hours) Temp Pulse Resp BP Pulse Ox 02/04/19 14:58 99.0 F 02/04/19 14:00 24 H 02/04/19 13:22 100 97/48 L 02/04/19 13:20 100 29 H 98 02/04/19 12:00 30 H 02/04/19 11:00 99.0 F 02/04/19 10:54 99 86/42 L 02/04/19 10:00 33 H 02/04/19 08:00 25 H 100 02/04/19 07:00 98.3 F 02/04/19 06:45 101 H 106/48 L 02/04/19 06:44 103 H 26 H 100 02/04/19 06:00 25 H 02/04/19 04:00 98.5 F 25 H Weight Admit Weight 299 lb Weight 316 lb 12.868 oz Most Recent Monitor Data Heart Rate from ECG 98 NIBP 97/41 NIBP BP-Mean 59 Respiration from ECG 26 SpO2 97 - Physical Exam General: Other (intubated) HEENT: Atraumatic Lungs: Other Cardiovascular: Regular rate Abdomen: Soft Extremities: Other Neurological: Other Psych/Mental Status: Other - Labs Result Diagrams: 02/04/19 04:40 02/04/19 04:40 Lab results: Laboratory Results - last 24 hr 02/04/19 06:50: Specimen Type ARTERIAL, Puncture Site L.R., Bicarbonate Actual 20.1 L, ABG pH 7.44, ABG pCO2 30.2 L, ABG pO2 102.7 H, ABG O2 Sat Calc/[place] 97.8 , ABG O2 Content 12.3 L, ABG Base Excess -3.4 L, ABG Hematocrit 26.0 L, ABG Hemoglobin 8.9 L, ABG Oxyhemoglobin 96.9, ABG Carboxyhemoglobin 0.6, ABG Methemoglobin 0.30, ABG Deoxyhemoglobin 2.2, Seferino Test POSITIVE, A-a O2 Gradient 180.400 H, Ionized Calcium 0.99 L, Mode of Support BILEVEL 26/10, Mechanical Rate 25, Inspired O2 45, Inspiratory Time 1.00, Pressure Support 17, Sodium 130 L, Potassium 5.18, Chloride 96 L 02/04/19 04:40: WBC 0.6 L*, RBC 2.82 L, Hgb 8.7 L, Hct 25.3 L, MCV 89.6, MCH 30.7, MCHC 34.3, RDW 15.5 H, Plt Count 8 L*, MPV 12.3 H, Neutrophils % (Manual) 40 L, Lymphocytes % (Manual) 40, Monocytes % (Manual) 20 H, Neutrophils # Not Reportable, Lymphocytes # Not Reportable, Hypochromia SLIGHT = 6-15 cells, Plt Morphology Comment Appears Decreased L, Target Cells SLIGHT = 2-5 cells 02/04/19 04:40: Phosphorus 3.9 02/04/19 04:40: Sodium 134 L, Potassium 5.3 H, Chloride 96 L, Carbon Dioxide 21 L, Anion Gap 22 H, BUN 87 H, Creatinine 4.11 H, Estimated GFR (MDRD) 15, Glucose 127 H, Calcium 8.2, Total Bilirubin 26.4 H, AST 77 H, ALT 77 H, Alkaline Phosphatase 102, Serum Total Protein 4.9 L, Albumin 2.9 L, Globulin 2.0 L, Albumin/Globulin Ratio 1.5 01/31/19 22:25: Blood Type A POSITIVE, Antibody Screen POSITIVE H, Antibody Identification ANTIBODY-UNKNOWN SPECIFICITY, Crossmatch See Detail Status: lab reviewed by me A/P - Problem (1) Acute respiratory failure Current Visit: Yes Code(s): J96.00 - ACUTE RESPIRATORY FAILURE, UNSP W HYPOXIA OR HYPERCAPNIA Status: Acute (2) Thrombocytopenia Current Visit: Yes Code(s): D69.6 - THROMBOCYTOPENIA, UNSPECIFIED Status: Acute (3) Small cell carcinoma Current Visit: No Code(s): C80.1 - MALIGNANT (PRIMARY) NEOPLASM, UNSPECIFIED Status: Acute - Plan Plan: cont supportive care with vasopressors, antibiotics, IVF, sodium bicarbonate , albumin HD as per Nephro s/p Neulasta - await count recovery ordered ABO-matched platelets from [facility] to discuss code status Day 4 on vent.
--- NOTE | 2019-02-04 15:56 | PRG ---
DATE OF SERVICE: 02/04/2019 SERVICE: Nephrology. SUBJECTIVE: A 53-year-old male being followed up for acute renal failure, thought to be ATN from circulatory shock. The patient also has metastatic colon cancer with metastasis to liver, associated with anasarca and spontaneous tumor lysis syndrome. The patient became anuric and was started on hemodialysis on February 02, 2019, for both volume overload and hyperkalemia. He is still sedated and mechanically ventilated and continues to require pressors. PHYSICAL EXAMINATION: VITAL SIGNS: Temperature 99.0, pulse 100, respiratory rate 25, SpO2 of 97 on ventilator, and blood pressure is 103/50. GENERAL: Acutely ill-looking male, icteric. Afebrile. HEENT: Normocephalic, atraumatic. ET tube and NG tubes are in place. CARDIOVASCULAR: Regular rhythm and rate. Tachycardic. Normal heart sounds 1 and 2. RESPIRATORY: Ventilator transmitted breath sounds heard in all lung zones. GI: Obese, nondistended with hypoactive bowel sounds. UROGENITAL: Scrotum is markedly swollen with some excoriations. Dark discoloration also is noted concerning for some devitalization. Carpenter catheter is in place. EXTREMITIES: Moderate bilateral leg edema noted. SKIN: Scattered petechial rash noticed on the upper chest extending to lower abdomen. SOCIAL MEDIA MARKETER: Sedated and unresponsive. LABORATORY DATA: CBC today showed WBC count of 0.6, hemoglobin of 8.7, MCV of 89.6, and platelets of 8. CMP showed sodium 134, potassium 5.3, chloride 96, CO2 of 21, anion gap 22, BUN 87, creatinine 4.11, glucose 127, calcium 8.2, total bilirubin 26.4, AST 77, ALT 77, alkaline phosphatase 102, total protein 5.9, albumin 2.9, and globulin 2.0. Phosphorus is 3.9. Chest x-ray showed bibasilar opacities with no pneumothorax. ASSESSMENT: 1. Acute renal failure: Due to acute tubular necrosis related to circulatory shock. 2. Septic shock: From Enterobacter bacteremia. 3. Severe pancytopenia with severe neutropenia and severe thrombocytopenia with petechial rash. The patient is status post 3 units of red blood cells, 4 units of FFP, and 5 units of platelets. 4. Hyponatremia: Due to syndrome of inappropriate antidiuretic hormone secretion related to small cell cancer and liver metastasis. 5. Marked hyperbilirubinemia due to liver metastasis. 6. Metastatic colon cancer. 7. Anasarca: Improved with hemodialysis with UF as tolerated. 8. Hyperkalemia, resolved with hemodialysis. 9. Hyperphosphatemia, resolved with hemodialysis. PLAN: 1. We will continue sustained low efficiency hemodialysis today for 4 hours. We will continue the same tomorrow. We will do UF as tolerated. 2. We will defer Hematology problems to Hematology and Oncology. 3. Presence of care plan was discussed with the nursing staff. I also updated the spouse. Palliative Care is now on the case. The patient remained critically ill with poor prognosis. Job ID: [id number]
--- NOTE | 2019-02-04 17:13 | PDOC.PALCO ---
Palliative Care Consult - Consult Details Requesting Physician: Dr Walls Reason for Consult: goals of care, advance directives assistance, assistance with communication prognosis/disease Family Members Present: 6 children, brother of patient, patient father and ex- - Pertinent HPI Recent colon cancer with liver mets. Patient received initial chemo. Was home with increase in jaundice and scrotal swelling. Presented to the emergency room and subsequently admitted. Continued decline, patient on mechanical ventilation, pressors secondary cardic compromise, sepsis. Palliative care consult for discussion in relation to resuscitation status and complex decision making as well as family support. - Pertinent PMH Hypertension, colon cancer with metastasis to liver - Social History Smoking Status: Never smoker Smoking: no tobacco exposure Alcohol Use: occasional Drug Use History: none Living Situation: independent - Medications MAR Reviewed: Yes - Allergies Allergies/Adverse Reactions: Allergies Allergy/AdvReac Type Severity Reaction Status Date / Time No Known Allergies Allergy Verified 01/31/19 23:58 - Subjective Sedation, mechanical ventilation ROS: patient sedated - Objective Vital Signs: Vital Signs - Most Recent Temp Pulse Resp BP Pulse Ox 99.0 F 98 24 H 86/43 L 98 02/04/19 14:58 02/04/19 16:14 02/04/19 16:00 02/04/19 16:14 02/04/19 13:20 Palliative Performance Scale: 20 - Physical Exam Deviation from normal: Ill appearing, icteric, sedated, anasarca HEENT: moist MMs Deviation from normal: mechanical ventilation, bronchial secretions Cardiovascular: RRR Gastrointestinal: hypoactive bowel sounds Deviation from normal: distended, Musculoskeletal: edema present Deviation from normal: sedated Deviation from normal: sedated Deviation from normal: icteric, brusing, petechiae - Problem List (1) Palliative care encounter Code(s): Z51.5 - ENCOUNTER FOR PALLIATIVE CARE Current Visit: Yes Status: Acute (2) Acute respiratory failure Code(s): J96.00 - ACUTE RESPIRATORY FAILURE, UNSP W HYPOXIA OR HYPERCAPNIA Current Visit: Yes Status: Acute (3) Shock, septic, Gram negative Code(s): A41.50 - GRAM-NEGATIVE SEPSIS, UNSPECIFIED; R65.21 - SEVERE SEPSIS WITH SEPTIC SHOCK Current Visit: Yes Status: Acute (4) Acute kidney failure Current Visit: No Status: Acute (5) Small cell carcinoma Code(s): C80.1 - MALIGNANT (PRIMARY) NEOPLASM, UNSPECIFIED Current Visit: No Status: Acute (6) Tumor lysis syndrome Code(s): E88.3 - TUMOR LYSIS SYNDROME Current Visit: No Status: Acute (7) Colon cancer Code(s): C18.9 - MALIGNANT NEOPLASM OF COLON, UNSPECIFIED Current Visit: No Status: Chronic - Plan/Recommendations Plan: Scopolamine patch for symptom management of oral/bronchial secretions. Family meeting to discuss resuscitation status, patient current condition and potential outcomes. Spoke with Dr Walls and Dr Velasquez prior to family meeting. Family present: patients 6 children, patient brother Bony, his father, and ex- . *Family agreed to have patient resuscitation status be a DNAR *Family asked questions, but understanding of poor prognosis. *Family will decide on Thursday if to seek comfort measures/but understands decline *Will appoint one sibling to be "point person" main contact *Robert Cee RNphosphoric acid supervisor present for family meeting and assisted with paper work in relation to DNAR status [120] minutes spent on this encounter with >50% of the time in counseling and coordination of care. Thank you for this very appropriate consult.
[2019-02-05] MEDS: Propofol 1,000 MG/100 ML VIAL IV PRN ×7 (02:04→23:17)
[2019-02-05] MEDS: Cefepime 2 GM in Sodium Chloride 0.9% 100 ML IVPB SCH (04:13)
[2019-02-05] MEDS: Vasopressin 40 UNIT, Admixture Fee 1 EACH in Sodium Chloride 0.9% 100 ML IV SCH ×2 (04:54→22:21)
[2019-02-05 05:16] LABS: Hemoglobin 9.4 g/dL (14.0-18.0); Mean Corpuscular HGB CONC 33.9 g/dL (32.0-36.0); Mean Corpuscular Hemoglobin 30.2 pg (27.0-31.0); Mean Corpuscular Volume 89.1 fL (78.0-98.0); Mean Platelet Volume 14.5 fL (7.4-10.4); Platelet Count 3 thou/uL (130-400); RBC Distribution Width 15.7 % (11.5-14.5); Red Blood Cell (RBC) Count 3.12 mill/uL (4.70-6.10); White Blood Cell (WBC) Count 2.4 thou/uL (4.8-10.8)
[2019-02-05 05:17] VITALS: BMI 39.6
[2019-02-05] MEDS: Hydrocortisone Sod Succ/PF 100 mg/2 ml Vial IVP SCH (05:48)
[2019-02-05] MEDS: Norepinephrine 16 MG in Dextrose 5% in Water 234 ML IVPB PRN ×2 (05:53→22:21)
[2019-02-05 06:01] LABS: Vacuoles SLIGHT
[2019-02-05 06:02] LABS: Band 12 % (5-11); Hypochromia SLIGHT = 6-15 cells (100X) (0-5/hpf); Lymphocytes 39 % (21-51); Monocytes 21 % (0-10); Poikilocytosis SLIGHT = 6-15 cells (100X) (0-5/hpf); Reactive Lymphocytes 1 % (0-10); Target Cells SLIGHT = 2-5 cells (100X) (0-1/hpf)
[2019-02-05 06:04] LABS: Platelet Morphology Comment Appears Decreased
[2019-02-05 07:31] LABS: ALT (SGPT) 77 U/L (8-55); AST (SGOT) 53 U/L (5-34); Albumin 2.7 g/dL (3.5-5.0); Alkaline Phosphatase 106 U/L (40-150); Anion Gap 21 mmol/L (10-20); BUN (Urea Nitrogen) 85 mg/dL (8.4-25.7); Calc. Creatinine Clearance 38 mL/min (70-130); Calcium 8.3 mg/dL (7.8-10.44); Carbon Dioxide 21 mmol/L (22-29); Chloride 96 mmol/L (98-107); Estimated GFR-MDRD 14; Globulin 2.2 g/dL (2.4-3.5); Glucose 114 mg/dL (70-105); Potassium 5.4 mmol/L (3.5-5.1); Protein, Total 4.9 g/dL (6.0-8.3); Sodium 133 mmol/L (136-145)
[2019-02-05 07:41] LABS: Bilirubin, Total 25.3 mg/dL (0.2-1.2)
--- NOTE | 2019-02-05 07:41 | RAD ---
EXAM: Portable chest PROVIDED CLINICAL HISTORY: Respiratory insufficiency COMPARISON: 02/04/2019 FINDINGS: Significant interval change with respect to the prior examination is not apparent. IMPRESSION: As above.
[2019-02-05] MEDS: Pantoprazole 40 MG VIAL IVP SCH (07:59)
[2019-02-05] MEDS: Amiodarone 450 MG in Dextrose 5% in Water 250 ML IVPB SCH ×2 (08:49→22:21)
[2019-02-05] MEDS ORDERED: Dexamethasone 40 MG in Sodium Chloride 0.9% 50 ML IVPB SCH (09:00)
[2019-02-05] MEDS ORDERED: DEXAMETHASONE IVPB SCH (09:00)
[2019-02-05] MEDS ORDERED: SODIUM CHLORIDE 0.9% IVPB SCH (09:00)
--- NOTE | 2019-02-05 09:50 | PRG ---
DATE OF SERVICE: 02/05/2019 TIME: 34 minutes of critical care time. SUBJECTIVE: He remains intubated, on mechanical ventilation. There have been no changes overnight. OBJECTIVE: VITAL SIGNS: Temperature 99.1, pulse 96, blood pressure 93/42, and O2 saturation 97%. He remains on a Levophed drip at 30 mcg/minute and amiodarone 0.5 mg/minute and vasopressin 0.04 units/minute. A 24-hour intake is 2536, output 70. He has 4.2 L removed by dialysis yesterday. His weight is 300 pounds. NEUROLOGICAL: I cannot get him to respond to me, but apparently becomes tachypneic when sedation is lessened on the ventilator. HEENT: Remarkable for conjunctival hemorrhages. NECK: No JVD. LUNGS: Coarse breath sounds bilaterally. CARDIOVASCULAR: S1, S2. Irregularly irregular. ABDOMEN: Soft. EXTREMITIES: Jaundiced. SKIN: He also has petechiae over his chest. GENITOURINARY: His scrotum is extremely swollen and darkened. LABORATORY DATA: White blood cell count 2.4, hematocrit 27.8, and platelet count 3000. Sodium 133, potassium 5.4, chloride 96, CO2 of 21, BUN 85, creatinine 4.4, glucose 114, total bilirubin 25.3, AST 53, and ALT 77. ASSESSMENT: 1. Acute respiratory failure requiring mechanical ventilation. 2. Acute renal failure. 3. Hepatic failure. 4. Severe scrotal swelling. 5. Bone marrow depression including leukopenia, anemia, and thrombocytopenia. PLAN: 1. He is not weanable from mechanical ventilation at this point. He will continue hemodialysis. Continue IV antibiotics. Continue the filgrastim. 2. Continue amiodarone for atrial fibrillation. 3. Continue hydrocortisone for probable adrenal insufficiency. Job ID: [id number]
[2019-02-05 11:08] LABS: Phosphorus 4.8 mg/dL (2.3-4.7)
--- NOTE | 2019-02-05 13:25 | PDOC.MOPN ---
Interval History: WBC imrpvoed to 2.4 today with 21% moncytes, expect a large jump tomorrow. Plts not improving, will start Dex 40 mg for consideration of ITP. - Vital Signs Vital Signs: Vital Signs (12 hours) Temp Pulse Resp BP Pulse Ox 02/05/19 12:00 24 H 02/05/19 11:23 96 93/43 L 02/05/19 11:00 99.0 F 02/05/19 10:00 32 H 02/05/19 08:00 24 H 97 02/05/19 07:14 97 100/42 L 02/05/19 07:12 98 28 H 97 02/05/19 07:00 99.1 F 02/05/19 05:55 24 H 02/05/19 03:52 22 H 02/05/19 03:33 98 02/05/19 03:00 99.1 F 02/05/19 02:00 24 H Weight Admit Weight 299 lb Weight 300 lb 14.896 oz Most Recent Monitor Data Heart Rate from ECG 95 NIBP 103/43 NIBP BP-Mean 63 Respiration from ECG 24 SpO2 97 - Labs Result Diagrams: 02/05/19 04:30 02/05/19 06:40 Lab results: Laboratory Results - last 24 hr 02/05/19 06:40: Sodium 133 L, Potassium 5.4 H, Chloride 96 L, Carbon Dioxide 21 L, Anion Gap 21 H, BUN 85 H, Creatinine 4.42 H, Estimated GFR (MDRD) 14, Glucose 114 H, Calcium 8.3, Total Bilirubin 25.3 H, AST 53 H, ALT 77 H, Alkaline Phosphatase 106, Serum Total Protein 4.9 L, Albumin 2.7 L, Globulin 2.2 L, Albumin/Globulin Ratio 1.2 02/05/19 06:40: Phosphorus 4.8 H 02/05/19 04:30: WBC 2.4 L, RBC 3.12 L, Hgb 9.4 L, Hct 27.8 L, MCV 89.1, MCH 30.2 , MCHC 33.9, RDW 15.7 H, Plt Count 3 L*, MPV 14.5 H, Neutrophils % (Manual) PHOTOGRAPHY PROFESSOR, Band Neuts % (Manual) 12 H, Lymphocytes % (Manual) 39, Reactive Lymphs % 1, Monocytes % (Manual) 21 H, Neutrophils # Not Reportable, Lymphocytes # Not Reportable, WBC Morphology SLIGHT, Hypochromia SLIGHT = 6-15 cells, Plt Morphology Comment Appears Decreased L, Poikilocytosis SLIGHT = 6-15 cells, Target Cells SLIGHT = 2-5 cells A/P - Problem (1) Shock, septic, Gram negative Current Visit: Yes Code(s): A41.50 - GRAM-NEGATIVE SEPSIS, UNSPECIFIED; R65.21 - SEVERE SEPSIS WITH SEPTIC SHOCK Status: Acute (2) Edema Current Visit: Yes Code(s): R60.9 - EDEMA, UNSPECIFIED Status: Acute (3) Lactic acidosis Current Visit: Yes Code(s): E87.2 - ACIDOSIS Status: Acute (4) Acute kidney failure Current Visit: No Status: Acute (5) Small cell carcinoma Current Visit: No Code(s): C80.1 - MALIGNANT (PRIMARY) NEOPLASM, UNSPECIFIED Status: Acute - Plan Plan: I spoke with the ex- over the phone today regarding patient's current status. She and the rest of her family have discussed what they want and most of them want to stop all care at htis time and a few others would like to wait a few days. I discussed with her that he has not had any functional immune system until now so has been unable to mount a defense against his gram negative bugs. His WBC increased dramatically yesterday and he has a high % of moncytes. When this happens the WBC typically trends up very quickly and I expect his WBC to be much higher tomorrow. Now that his WBC are increasing hopefully he can make some strides in the next couple days. Antibiotics by themselves are not great at killing bacteria without the help of leukocytes. She understands and has discussed with her family and would like to give him 1- 2 more days to show signs of improvement. cont current treatment start Dex 40 mg qday x 4 days for possible ITP
--- NOTE | 2019-02-05 14:47 | PRG ---
DATE OF SERVICE: 02/05/2019 I arrived to the patient's bedside and the family was present. There was a decision made early this morning to withdraw care. The patient is having his ventilator turned off and will have all tubes and other drainage and insertion devices removed. The patient has now gone on hospice and palliative care and is at end of life. Minimal examination was done as the patient is now transferring to hospice. We will sign off as no further services will be required from Urology. Job ID: [id number]
[2019-02-05 15:02] VITALS: BP 91/46
--- NOTE | 2019-02-05 18:01 | PDOC.HOSPP ---
- Subjective Encounter Date: 02/05/19 Encounter Time: 10:50 Subjective: Mr. Alfaro was seen today in follow-up of severe sepsis. He is intubated, and non -responsive. - Objective Vital Signs & Weight: Vital Signs (12 hours) Temp Pulse Resp BP Pulse Ox 02/05/19 16:00 22 H 02/05/19 15:00 99.2 F 02/05/19 14:59 131 H 91/46 L 02/05/19 14:00 24 H 02/05/19 13:27 97 107/48 L 02/05/19 13:26 99 25 H 97 02/05/19 12:00 24 H 02/05/19 11:23 96 93/43 L 02/05/19 11:00 99.0 F 02/05/19 10:00 32 H 02/05/19 08:00 24 H 97 02/05/19 07:14 97 100/42 L 02/05/19 07:12 98 28 H 97 02/05/19 07:00 99.1 F Weight Admit Weight 299 lb Weight 300 lb 14.896 oz Most Recent Monitor Data Heart Rate from ECG 131 NIBP 84/44 NIBP BP-Mean 57 Respiration from ECG 24 SpO2 97 I&O: 02/04/19 02/05/19 02/06/19 06:59 06:59 06:59 Intake Total 3106.4 2536.7 Output Total 110 70 Balance 2996.4 2466.7 Result Diagrams: 02/05/19 04:30 02/05/19 06:40 Hospitalist ROS - Medication Medications: Active Medications Generic Name Dose Route Start Last Admin Trade Name Chato PRN Reason Stop Dose Admin Albuterol/Ipratropium 3 ml 02/02/19 07:00 02/05/19 13:26 Duoneb NEB 3 ml [id number] DAYLIN Administration Vasopressin 40 unit/ 102 mls @ 0 mls/hr 02/01/19 21:45 02/05/19 04:54 Miscellaneous Medication 1 IV 102 mls each/ Sodium Chloride INF DAYLIN Administration Protocol As Directed Levofloxacin 750 mg/ Device 150 mls @ 100 mls/hr 02/02/19 07:45 02/04/19 09: 28 IVPB 150 mls Q2D DAYLIN Administration Cefepime HCl 2 gm/ Sodium 100 mls @ 200 mls/hr 02/03/19 04:00 02/05/19 04:13 Chloride IVPB 100 mls 0400 DAYLIN Administration Amiodarone HCl 450 mg/ 259 mls @ 0 mls/hr 02/03/19 07:45 02/05/19 08:49 Dextrose/Water IVPB 259 mls INF DAYLIN Administration Protocol Per Protocol Norepinephrine Bitartrate 16 250 mls @ 0 mls/hr 02/04/19 00:10 02/05/19 05:53 mg/ Dextrose/Water IVPB 250 mls INF PRN Administration TO MAINTAIN MAP > 65 Protocol As Directed Dexamethasone 40 mg/ Sodium 60 mls @ 100 mls/hr 02/05/19 09:00 02/05/19 09:22 Chloride IVPB 02/08/19 23:59 60 mls DAILY DAYLIN Administration Morphine Sulfate 4 mg 02/01/19 07:50 02/01/19 21:27 Morphine SLOW IVP 4 mg Q4H PRN Administration Pain Morphine Sulfate 2 mg 02/02/19 02:01 02/02/19 13:21 Morphine SLOW IVP 03/04/19 02:01 2 mg Q1H PRN Administration BREAKTHROUGH PAIN/Agitation Pantoprazole Sodium 40 mg 02/01/19 09:00 02/05/19 07:59 Protonix IVP 40 mg DAILY DAYLIN Administration Propofol 1,000 mg 02/02/19 02:01 02/05/19 17:26 Diprivan IV 03/04/19 02:01 1,000 mg INF PRN Administration TO ACHIEVE GOAL RASS Protocol Scopolamine 3 mg 02/04/19 13:00 02/04/19 12:36 Transderm Scop TD 3 mg Q3D DAYLIN Administration Sodium Chloride 10 ml 02/02/19 09:00 02/05/19 07:59 Flush - Normal Saline IVF 10 ml Q12HR DAYLIN Administration Tbo-Filgrastim 480 mcg 02/02/19 09:00 02/05/19 08:04 Granix SC 02/07/19 09:01 480 mcg DAILY DAYLIN Administration - Exam Eye: PERRL (sluggish), anicteric sclera Heart: RRR, no murmur, no gallops, no rubs, normal peripheral pulses Respiratory: CTAB, no wheezes, no rales, no ronchi, normal chest expansion, no tachypnea, normal percussion Gastrointestinal: soft, non-tender, non-distended, normal bowel sounds, no palpable masses, no guarding, no rigidity Extremities: 2+ LE edema (+ massive edema in both upper and lower extremities) Skin: negative: normal turgor (petichia over most of his upper chest), no lesions, no rashes, tenting Hosp A/P (1) Septic shock Code(s): A41.9 - SEPSIS, UNSPECIFIED ORGANISM; R65.21 - SEVERE SEPSIS WITH SEPTIC SHOCK Status: Acute (2) Thrombocytopenia Code(s): D69.6 - THROMBOCYTOPENIA, UNSPECIFIED Status: Acute (3) Acute kidney failure Status: Acute (4) Tumor lysis syndrome Code(s): E88.3 - TUMOR LYSIS SYNDROME Status: Acute (5) Colon cancer Code(s): C18.9 - MALIGNANT NEOPLASM OF COLON, UNSPECIFIED Status: Chronic - Plan * Septic shock requiring pressors - continue broad spectrum antibiotics * Acute renal failure- due to sepsis- requiring dialysis * Profound thrombocytopenia- due to cancer and sepsis- this could be a life= threatening event on it's own * Advanced colon cancer * Scrotal ganagrene * I do not believe he can survive this illness
[2019-02-05] MEDS ORDERED: Amiodarone 150 MG, Admixture Fee 1 EACH in Dextrose 5% in Water 100 ML IVPB SCH (18:45)
[2019-02-05] MEDS: Digoxin 0.5 MG/2 ML AMP SLOW IVP SCH (20:18)
[2019-02-06 00:07] VITALS: TEMP 102.2
[2019-02-06] MEDS: Digoxin 0.5 MG/2 ML AMP SLOW IVP SCH (00:07)
[2019-02-06] MEDS: Propofol 1,000 MG/100 ML VIAL IV PRN (02:52)
--- NOTE | 2019-02-07 14:03 | DIS ---
DATE OF ADMISSION: 01/31/2019 DATE OF DISCHARGE: 02/06/2019 PRIMARY CARE PHYSICIAN: Dr. Brandon Schroeder. DATE OF : 02/06/2019. DIAGNOSES: 1. Septic shock. 2. Scrotal gangrene. 3. Metastatic colon cancer. 4. Coagulopathy secondary to sepsis. 5. Pancytopenia secondary to chemotherapy. 6. Tumor lysis syndrome. CODE STATUS: DNR. ALLERGIES: NO KNOWN DRUG ALLERGIES. PROCEDURE DURING THE HOSPITAL STAY: The patient had a CT scan of the abdomen and pelvis, showing hepatic metastasis. There was mild ascites, bilateral hydroceles. The patient had a testicular ultrasound showing prominent scrotal wall edema. There is no intratesticular mass or torsion. HOSPITAL COURSE: Mr. Alfaro is an unfortunate 53-year-old gentleman, who had only recently been diagnosed with metastatic colon cancer. He has metastasis to the liver, and he had also recently developed tumor lysis syndrome as a result of the aggressive and fast growing tumor. He was admitted to the hospital with scrotal swelling and fatigue. He was found to be leukopenic and was in septic shock. He was requiring pressor for blood pressure support. He was also found to be pancytopenic and found to be in acute renal failure with a renal function with a GFR less than 15. He was ultimately required intubation. It was also noted on exam that he had massive scrotal edema as well as an areas of dark discoloration consistent with gangrene. Urology was consulted in addition to skin care specialist. It was felt that due to his critical state, he would not be a candidate for any type of debridement and it was unlikely he would survive any type of surgery. He remained intubated for several days showing no improvement. He continued to have multiorgan failure as a result of the sepsis with end-stage renal disease, respiratory failure, and coagulopathy. The family met with palliative care team and decided that further active treatment would be futile, and the decision was made for terminal extubation. This was done on 02/06/2019. The family was at bedside and the patient peacefully at 4:30 a.m. Job ID: [id number]
== END 2019-02-06 03:58 | disposition expired | DRG 871 ==
LOC: ERS 17:57 → CCU 21:50
PROVIDERS: ADMIT Hospitalist; ATTEND Hospitalist
PROC: 0BH17EZ Insertion of Endotracheal Airway into Trachea, Via Natural or Artificial Opening (ICD-10-PCS; principal; 2019-02-02)
PROC: 3E033XZ Introduction of Vasopressor into Peripheral Vein, Percutaneous Approach (ICD-10-PCS; 2019-02-02)
PROC: 06PY33Z Removal of Infusion Device from Lower Vein, Percutaneous Approach (ICD-10-PCS; 2019-02-02)
PROC: 0B9F8ZX Drainage of Right Lower Lung Lobe, Via Natural or Artificial Opening Endoscopic, Diagnostic (ICD-10-PCS; 2019-02-02)
PROC: 5A1945Z Respiratory Ventilation, 24-96 Consecutive Hours (ICD-10-PCS; 2019-02-02)
PROC: 30233K1 Transfusion of Nonautologous Frozen Plasma into Peripheral Vein, Percutaneous Approach (ICD-10-PCS; 2019-02-02)
PROC: 30233N1 Transfusion of Nonautologous Red Blood Cells into Peripheral Vein, Percutaneous Approach (ICD-10-PCS; 2019-02-02)
DX: A41.81 Sepsis due to Enterococcus (principal); R65.21 Severe sepsis with septic shock; I21.A1 Myocardial infarction type 2; D61.810 Antineoplastic chemotherapy induced pancytopenia; N17.0 Acute kidney failure with tubular necrosis; E88.3 Tumor lysis syndrome; J96.01 Acute respiratory failure with hypoxia; N18.6 End stage renal disease; C20 Malignant neoplasm of rectum; C78.7 Secondary malignant neoplasm of liver and intrahepatic bile duct; N17.9 Acute kidney failure, unspecified; K76.6 Portal hypertension; E22.2 Syndrome of inappropriate secretion of antidiuretic hormone; C78.5 Secondary malignant neoplasm of large intestine and rectum; D68.9 Coagulation defect, unspecified; I12.0 Hypertensive chronic kidney disease with stage 5 chronic kidney disease or end stage renal disease; R18.8 Other ascites; N43.3 Hydrocele, unspecified; Z66 Do not resuscitate; Z51.5 Encounter for palliative care; T45.1X5A Adverse effect of antineoplastic and immunosuppressive drugs, initial encounter; E87.5 Hyperkalemia; R79.89 Other specified abnormal findings of blood chemistry; E80.6 Other disorders of bilirubin metabolism; D69.6 Thrombocytopenia, unspecified; K72.90 Hepatic failure, unspecified without coma; N49.3 Fournier gangrene; E83.39 Other disorders of phosphorus metabolism; Z98.890 Other specified postprocedural states; Z79.899 Other long term (current) drug therapy
CPT/HCPCS: 36415; 36416; 36430; 51702; 71045; 74176; 76870; 80048; 80053; 80202; 81003; 82533; 82553; 82805; 83605; 83690; 83735; 83880; 84100; 84484; 84550; 85025; 85610; 85730; 86850; 86870; 86900; 86901; 86922; 87040; 87077; 87086; 87149; 87186; 87340; 90935; 93005; 93010; 93976; 94002; 94003; 94640; 96361; 96365; 96366; 96375; C1752; C9113; G0257; J0282; J0692; J1100; J1160; J1447; J1642; J1720; J1815; J1956; J2250; J2270; J2704; J3010; J3370; J3490; J7070; J7620; P9016; P9035; P9047; P9059